=== PATIENT | female | born 1970 | race Two or more races ===

== ENCOUNTER 2016-03-07 20:39 | Emergency (ER) | payer MEDICARE, MEDICAID ==
[2016-03-07 20:52] VITALS: BP 149/91
[2016-03-07 22:06] LABS: Hematocrit 39 % (35-47); Hemoglobin 13.1 g/dl (12.0-16.0); Mean Corpuscular HGB Conc 34 g/dl (31-36); Mean Corpuscular Hemoglobin 28 pg (27-31); Mean Corpuscular Volume 84 fL (80-97); Mean Platelet Volume 9 um3 (7.4-10.4); Red Blood Count 4.65 10^6/ul (4.0-5.4); Red Cell Distribution Width 15 % (10.5-15); White Blood Count 2.9 10^3/ul (3.5-10.8)
--- NOTE | 2016-03-07 22:07 | RAD ---
INDICATION: Cough, fever. Blood-tinged sputum. COMPARISON: November 29, [address] and November 18, 2009 chest radiograph. TECHNIQUE: Dual energy PA and routine lateral views of the chest were obtained. REPORT: Mild airspace consolidation within the medial segment of the RIGHT middle lobe which may represent atelectasis or inflammatory infiltrate. Negative for volume loss to strongly favor atelectasis. Clear pleural spaces. Negative for pneumothorax. Upper normal heart size. Unremarkable central pulmonary vasculature. IMPRESSION: Mild consolidation in the distribution of the medial segment of the RIGHT middle lobe most concerning for inflammatory infiltrate.
[2016-03-07 22:10] LABS: Add Diff/Slide Review? Slide Review Added; Comments Flag Yes
[2016-03-07 22:21] LABS: Albumin 3.5 g/dL (3.2-5.2); Calcium 8.5 mg/dL (8.6-10.3); EGFR African American 111.9 (>60); Globulin 3.5 g/dL (2-4); Potassium 3.8 mmol/L (3.5-5.0); Total Bilirubin 0.4 mg/dL (0.2-1.0)
[2016-03-07] MEDS ORDERED: Azithromycin TAB* 250 MG PO ONE (22:27)
--- NOTE | 2016-03-07 22:28 | ED ---
Lowell Brandon Erika, scribed for Keyon Gutierrez MD on 03/07/16 at 2125 . Respiratory - HPI Summary HPI Summary: Patient is a 45-year-old female presenting to the ED with c/o cough, worsening over the past 3 days. Associated symptoms include fatigue, fever (T max 101), and blood tinged sputum this morning. Pt reports that she has been taking OTC Robitussin and ibuprofen and has not improved. Pt has not taken Tylenol. Hx HIV for the past 10 years - states last month viral load was 33804 copies. Pt reports her viral load has been fluctuating. She is followed by an IV clinic, and is seen every month. She reports she takes her medication daily. Pt denies recent opportunistic infections. Pt smokes 1/2 PPD. - History of Current Complaint Chief Complaint: EDUpperRespComplaint Stated Complaint: COUGH Time Seen by Provider: 03/07/16 21:13 Hx Obtained From: Patient Onset/Duration: Gradual Onset, Lasting Days - 3 days, Worse Since Timing: Constant Initial Severity: Mild Current Severity: Moderate Pain Intensity: 7 Character: Cough (Productive) Sputum Color: Red (Blood) Alleviating Factor(s): Nothing Associated Signs and Symptoms: Fever, URI - Allergy/Home Medications Allergies/Adverse Reactions: Allergies Allergy/AdvReac Type Severity Reaction Status Date / Time Bupropion [From Wellbutrin] Allergy Hives Verified 09/09/15 19:50 PMH/Surg Hx/FS Hx/Imm Hx Endocrine/Hematology History: Denies: Hx Diabetes, Hx Thyroid Disease Cardiovascular History: Denies: Hx Hypertension, Hx Pacemaker/ICD Respiratory History: Reports: Hx Asthma, Hx Chronic Obstructive Pulmonary Disease (COPD) GI History: Denies: Hx Ulcer History: Denies: Hx Dialysis, Hx Kidney Stones, Hx Renal Disease Sensory History: Denies: Hx Hearing Aid Psychiatric History: Reports: Hx Bipolar Disorder Denies: Hx Panic Disorder - Surgical History Surgery Procedure, Year, and Place: C SPINE SURGERY, HYSTERECTOMY, C SECTION, RT KNEE SCOPE X2, C5-C6 FUSSION WITH FLEX PLATE-right knee ACL repair 2003 Infectious Disease History: Yes Infectious Disease History: Reports: Hx Human Immunodeficiency Virus (HIV) Denies: Hx Hepatitis, Traveled Outside the [place] in Last 30 Days - Family History Known Family History: Positive: Hypertension, Diabetes - Social History Alcohol Use: Rare Hx Substance Use: No Substance Use Type: Reports: None Hx Tobacco Use: Yes Smoking Status (MU): Heavy Every Day Tobacco Smoker Amount Used/How Often: 1/2 ppd Review of Systems Positive: Fever, Fatigue Positive: Cough - with blood-tinged sputum All Other Systems Reviewed And Are Negative: Yes Physical Exam Triage Information Reviewed: Yes Vital Signs On Initial Exam: Initial Vitals Temp Pulse Resp BP Pulse Ox 99.9 F 108 18 149/91 100 03/07/16 20:49 03/07/16 20:49 03/07/16 20:49 03/07/16 20:49 03/07/16 20:49 Vital Signs Reviewed: Yes Appearance: Positive: Well-Appearing, No Pain Distress Skin: Positive: Warm Head/Face: Positive: Normal Head/Face Inspection Eyes: Positive: DELORIS ENT: Positive: Hearing grossly normal Neck: Positive: Supple Respiratory/Lung Sounds: Positive: Clear to Auscultation, Breath Sounds Present Cardiovascular: Positive: RRR Abdomen Description: Positive: Nontender, Soft Bowel Sounds: Positive: Present Musculoskeletal: Positive: Strength/ROM Intact Neurological: Positive: Sensory/Motor Intact Psychiatric: Positive: Normal Diagnostics - Vital Signs Vital Signs Temp Pulse Resp BP Pulse Ox 03/07/16 20:49 99.9 F 108 18 149/91 100 - Laboratory Lab Results: Lab Results 03/07/16 03/07/16 Range/Units 22:00 22:00 WBC 2.9 L (3.5-10.8) 10^3/ul RBC 4.65 (4.0-5.4) 10^6/ul Hgb 13.1 (12.0-16.0) g/dl Hct 39 (35-47) % MCV 84 (80-97) fL MCH 28 (27-31) pg MCHC 34 (31-36) g/dl RDW 15 (10.5-15) % Plt Count 92 L (150-450) 10^3/ul MPV 9 (7.4-10.4) um3 Neut % (Auto) 69.1 (38-83) % Lymph % (Auto) 14.3 L (25-47) % [place] % (Auto) 8.8 (1-9) % Eos % (Auto) 6.7 H (0-6) % Baso % (Auto) 1.1 (0-2) % Absolute Neuts (auto) 2.0 (1.5-7.7) 10^3/ul Absolute Lymphs (auto) 0.4 L (1.0-4.8) 10^3/ul Absolute Monos (auto) 0.3 (0-0.8) 10^3/ul Absolute Eos (auto) 0.2 (0-0.6) 10^3/ul Absolute Basos (auto) 0 (0-0.2) 10^3/ul Absolute Nucleated RBC 0.01 10^3/ul Nucleated RBC % 0.2 Sodium 134 (133-145) mmol/L Potassium 3.8 (3.5-5.0) mmol/L Chloride 105 (101-111) mmol/L Carbon Dioxide 25 (22-32) mmol/L Anion Gap 4 (2-11) mmol/L BUN 8 (6-24) mg/dL Creatinine 0.73 (0.51-0.95) mg/dL Est GFR ( Amer) 111.9 (>60) Est GFR (Non-Af Amer) 87.0 (>60) BUN/Creatinine Ratio 11.0 (8-20) Glucose 90 (70-100) mg/dL Calcium 8.5 L (8.6-10.3) mg/dL Total Bilirubin 0.40 (0.2-1.0) mg/dL AST 39 (13-39) U/L ALT 27 (7-52) U/L Alkaline Phosphatase 75 (34-104) U/L Total Protein 7.0 (6.4-8.9) g/dL Albumin 3.5 (3.2-5.2) g/dL Globulin 3.5 (2-4) g/dL Albumin/Globulin Ratio 1.0 (1-3) Result Diagrams: 03/07/16 22:00 03/07/16 22:00 Lab Statement: Any lab studies that have been ordered have been reviewed, and results considered in the medical decision making process. - Radiology CXR Radiology Interpretation Completed By: Radiologist - IMPRESSION: Mild consolidation in the distribution of the medial segment of the RIGHT middle lobe most concerning for inflammatory infiltrate. Re-Evaluation - Re-Evaluation First Eval Re-Evaluation Time: 22:28 Change: Improved Disposition - Course Assessment/Plan: A 45 y/o F presents to the ED with a CC of a cough. Pt will be treated with azithromycin for bronchitis and will be discharged with follow up from her PCP - Diagnoses Provider Diagnoses: Bronchitis Discharge - Discharge Plan Condition: Stable Disposition: HOME Prescriptions: Azithromycin TAB* [Zithromax TAB (Z-NASIR)*] 250 mg PO DAILY #4 tab Patient Education Materials: Acute Bronchitis (ED) Referrals: Clementine OCHOA,Marian Townsend [Primary Care Provider] - Additional Instructions: Please follow up with your PCP The documentation as recorded by the Lowell wells Erika accurately reflects the service I personally performed and the decisions made by , Keyon Gutierrez MD.
== END 2016-03-07 23:04 | disposition home or self-care (01) ==
LOC: ED 20:39
DX: J40 Bronchitis, not specified as acute or chronic (principal); R05 Cough; R53.83 Other fatigue; F17.210 Nicotine dependence, cigarettes, uncomplicated; R50.9 Fever, unspecified
CPT/HCPCS: 36415; 71020; 80053; 85025; 99282; A9270-GY

== ENCOUNTER 2016-04-20 08:10 | Emergency (ER) | payer MEDICARE, MEDICAID ==
[2016-04-20] MEDS ORDERED: Ibuprofen TAB* 400 MG PO ONE (08:37)
--- NOTE | 2016-04-20 08:44 | ED ---
Lower Extremity - HPI Summary HPI Summary: Patient was walking in [employer] two days ago when she twisted her knee. She has a history of patellar subluxation and worries this happened again. She is using a cane for ambulation and has pain with weightbearing. She feels the knee is swollen and tender to the touch. She takes chronic pain medications, so she has used hydrocodone with minimal relief. She also used an Jesus Manuel bandage for support. No calf pain or swelling. - History of Current Complaint Chief Complaint: EDExtremityLower Stated Complaint: LT KNEE PAIN Time Seen by Provider: 04/20/16 08:22 Hx Obtained From: Patient Mechanism Of Injury: Twisted Onset of Pain: Immediate Onset/Duration: Days - 2 Severity Initially: Moderate Severity Currently: Severe Pain Intensity: 9 Timing: Constant Location: Is Discrete @ - left knee Character Of Pain: Sharp, Aching Associated Signs And Symptoms: Positive: Swelling, Knee Pain Aggravating Factor(s): Standing, Movement Alleviating Factor(s): Rest Able to Bear Weight: Yes - with pain - Allergies/Home Medications Allergies/Adverse Reactions: Allergies Allergy/AdvReac Type Severity Reaction Status Date / Time Bupropion [From Wellbutrin] Allergy Hives Verified 04/20/16 08:28 Home Medications: Home Medications Triumeq 600-50-300 mg 1 tab PO BEDTIME 04/20/16 [History Confirmed 04/20/16] PMH/Surg Hx/FS Hx/Imm Hx Endocrine/Hematology History: Denies: Hx Diabetes, Hx Thyroid Disease Cardiovascular History: Denies: Hx Hypertension, Hx Pacemaker/ICD Respiratory History: Reports: Hx Asthma, Hx Chronic Obstructive Pulmonary Disease (COPD) GI History: Denies: Hx Ulcer History: Denies: Hx Dialysis, Hx Kidney Stones, Hx Renal Disease Sensory History: Denies: Hx Hearing Aid Psychiatric History: Reports: Hx Bipolar Disorder Denies: Hx Panic Disorder - Surgical History Surgery Procedure, Year, and Place: C SPINE SURGERY, HYSTERECTOMY, C SECTION, RT KNEE SCOPE X2, C5-C6 FUSSION WITH FLEX PLATE-right knee ACL repair 2003 Infectious Disease History: No Infectious Disease History: Reports: Hx Human Immunodeficiency Virus (HIV) Denies: Hx Hepatitis, Traveled Outside the [place] in Last 30 Days - Family History Known Family History: Positive: Hypertension, Diabetes - Social History Occupation: Unemployed Lives: With Family Alcohol Use: Rare Hx Substance Use: No Substance Use Type: Reports: Prescribed Substance Use Comment - Amount & Last Used: Hydrocodone Hx Tobacco Use: Yes Smoking Status (MU): Light Every Day Tobacco Smoker Amount Used/How Often: 1/2 ppd Cessation Counseling: Patient Advised to Stop Review of Systems Positive: Myalgia, Decreased ROM, Edema - mild posterior Negative: Bruising Negative: Weakness, Paresthesia All Other Systems Reviewed And Are Negative: Yes Physical Exam Triage Information Reviewed: Yes Vital Signs On Initial Exam: Initial Vitals Temp Pulse Resp BP Pulse Ox 99.0 F 102 16 146/91 100 04/20/16 08:13 04/20/16 08:13 04/20/16 08:13 04/20/16 08:13 04/20/16 08:13 Vital Signs Reviewed: Yes Appearance: Positive: Well-Appearing, Well-Nourished, Pain Distress Skin: Positive: Warm, Skin Color Reflects Adequate Perfusion, Dry, Soft Head/Face: Positive: Normal Head/Face Inspection Eyes: Positive: EOMI, DELORIS, Conjunctiva Clear ENT: Positive: Hearing grossly normal Respiratory/Lung Sounds: Positive: Breath Sounds Present Cardiovascular: Positive: RRR Musculoskeletal: Positive: Limited @ - extension to 0, flexion to 90; stable to varus/valgus stress, Pain @ - positive patellar apprehension with tenderness over the tibial tendon and lateral joint line, Edema Left - mild in the popliteal fossa Neurological: Positive: Sensory/Motor Intact, Alert, Oriented to Person Place, Time, NV Bundle Intact Distally, Abnormal Gait Psychiatric: Positive: Affect/Mood Appropriate AVPU Assessment: Alert Diagnostics - Vital Signs Vital Signs Temp Pulse Resp BP Pulse Ox 04/20/16 08:24 92 97 04/20/16 08:13 99.0 F 102 16 146/91 100 - Laboratory Lab Statement: Any lab studies that have been ordered have been reviewed, and results considered in the medical decision making process. - Radiology No standard instances Xray Interpretation: No Acute Changes Radiology Interpretation Completed By: Radiologist Lower Extremity Course/Dx - Diagnoses Differential Diagnosis/HQI/PQRI: Positive: Arthritis, Bursitis, Cellulitis, Compartment Syndrome, Contusion, Dislocation, Fracture (Closed), Osteomyelitis, Sprain, Strain Provider Diagnoses: Left knee sprain Discharge - Discharge Plan Condition: Stable Disposition: HOME Patient Education Materials: Knee Pain (ED) Referrals: Marian Burns B [Primary Care Provider] - Additional Instructions: Please use 800mg of ibuprofen three times daily with meals for the next 5-7 days. Use the crutches to take weight off your leg until your pain improves. Ice and elevate your knee several times daily to decrease swelling. Follow-up with your primary care provider if your symptoms don't improve in the next 7-10 days. Return to the emergency department if your symptoms worsen.
--- NOTE | 2016-04-20 09:20 | RAD ---
INDICATION: Left knee injury. TECHNIQUE: 4 views of the left knee were obtained. FINDINGS: The bones are in normal alignment. No joint effusion or acute fracture is seen. There is a small bony spur or old fracture present along the medial facet of the patella. Joint spaces appear maintained. IMPRESSION: NO EVIDENCE FOR ACUTE FRACTURE.
[2016-04-20 10:15] VITALS: BP 128/82
== END 2016-04-20 10:14 | disposition home or self-care (01) ==
LOC: ED 08:10
DX: S83.92XA Sprain of unspecified site of left knee, initial encounter (principal); M25.462 Effusion, left knee; M25.562 Pain in left knee; X50.0XXA Overexertion from strenuous movement or load, initial encounter; X50.9XXA Other and unspecified overexertion or strenuous movements or postures, initial encounter; Y93.9 Activity, unspecified; Y92.89 Other specified places as the place of occurrence of the external cause; F17.210 Nicotine dependence, cigarettes, uncomplicated
CPT/HCPCS: 99282; A9270-GY

== ENCOUNTER 2016-09-18 13:42 | Emergency (ER) | payer MEDICARE, MEDICAID ==
[2016-09-18] MEDS ORDERED: Ketorolac INJ* 30 MG/ML 1 ML VIAL IV ONE (15:37)
[2016-09-18] MEDS ORDERED: NS 0.9% 1000 ML* 1,000 ML IV ONE (15:37)
[2016-09-18] MEDS ORDERED: Metoclopramide IV* 5 MG/ML 2 ML VIAL IV ONE (15:37)
[2016-09-18] MEDS ORDERED: diPHENhydraMINE IV* 50 MG/ML 1 ml VIAL (BENADRYL) IV ONE (15:37)
[2016-09-18 17:45] VITALS: BP 133/89
--- NOTE | 2016-09-18 22:25 | ED ---
Ken Brandon Alok, scribed for Mikie Barry MD on 09/18/16 at 1543 . Dizziness - HPI Summary HPI Summary: 46F presents to the ED with dizziness described as a lightheadedness for the past 3 days. Patient states that her dizziness has been constant and is aggravated by an upright position. Pt also notes a left sided temporal ANDUJAR described as a dull, stabbing pain as well as nausea for the past 3 days. Pt notes photophobia and has been taking ibuprofen to manage her ANDUJAR. PMHx includes C4C5 fusion plate. - History Of Current Complaint Chief Complaint: EDDizziness Stated Complaint: LIGHTHEADED,DIZZY,NAUSEA Time Seen by Provider: 09/18/16 15:32 Hx Obtained From: Patient Onset/Duration: Still Present Timing: Constant Severity Initially: Moderate Severity Currently: Moderate Character: Lightheaded, Dizzy Aggravating Factor(s): Headache, Change In Head Position Alleviating Factor(s): Other - ibuprofen Associated Signs And Symptoms: Positive: Nausea, Other: - ANDUJAR - Allergies/Home Medications Allergies/Adverse Reactions: Allergies Allergy/AdvReac Type Severity Reaction Status Date / Time Bupropion [From Wellbutrin] Allergy Hives Verified 09/18/16 13:47 PMH/Surg Hx/FS Hx/Imm Hx Endocrine/Hematology History: Denies: Hx Anticoagulant Therapy, Hx Blood Disorders, Hx Diabetes, Hx Thyroid Disease Cardiovascular History: Denies: Hx Hypertension, Hx Pacemaker/ICD Respiratory History: Reports: Hx Asthma, Hx Chronic Obstructive Pulmonary Disease (COPD) GI History: Denies: Hx Ulcer History: Denies: Hx Dialysis, Hx Kidney Stones, Hx Renal Disease Musculoskeletal History: Reports: Hx Back Problems - DDD lumbar spine Denies: Hx Osteoporosis Sensory History: Denies: Hx Hearing Aid Psychiatric History: Reports: Hx Bipolar Disorder Denies: Hx Panic Disorder - Surgical History Surgery Procedure, Year, and Place: C SPINE SURGERY, TUBAL LIGATION; HYSTERECTOMY, C SECTION, RT KNEE SCOPE X2, C5-C6 FUSSION WITH FLEX PLATE-; right knee ACL repair 2003. BILATERAL WRIST CARPAL TUNNEL Infectious Disease History: No Infectious Disease History: Reports: Hx Human Immunodeficiency Virus (HIV) Denies: Hx Hepatitis, Traveled Outside the [place] in Last 30 Days - Family History Known Family History: Positive: Hypertension, Diabetes - Social History Occupation: Disabled Lives: With Family Alcohol Use: Rare Hx Substance Use: No Substance Use Type: Reports: Prescribed. Denies: Heroin Substance Use Comment - Amount & Last Used: Hydrocodone Hx Tobacco Use: Yes Smoking Status (MU): Current Every Day Smoker Amount Used/How Often: 1/2 ppd Review of Systems Negative: Fever Positive: Photophobia Positive: Nausea Neurological: Other - Dizziness Positive: Headache All Other Systems Reviewed And Are Negative: Yes Physical Exam Triage Information Reviewed: Yes Vital Signs On Initial Exam: Initial Vitals Temp Pulse Resp BP Pulse Ox 98.1 F 100 16 146/87 98 09/18/16 13:50 09/18/16 13:50 09/18/16 13:50 09/18/16 13:50 09/18/16 13:50 Vital Signs Reviewed: Yes Appearance: Positive: Well-Appearing, No Pain Distress Skin: Positive: Warm, Skin Color Reflects Adequate Perfusion, Dry Head/Face: Positive: Normal Head/Face Inspection Eyes: Positive: Normal ENT: Positive: Normal ENT inspection Neck: Positive: Supple, Nontender Respiratory/Lung Sounds: Positive: Clear to Auscultation, Breath Sounds Present Cardiovascular: Positive: RRR Abdomen Description: Positive: Nontender, Soft Bowel Sounds: Positive: Present Musculoskeletal: Positive: Other - Paracervical tenderness left side more than right. Neurological: Positive: Normal, Sensory/Motor Intact, Alert, Oriented to Person Place, Time, CN Intact II-III, Other - No meningitis signs Psychiatric: Positive: Normal, Affect/Mood Appropriate Diagnostics - Vital Signs Vital Signs Temp Pulse Resp BP Pulse Ox 09/18/16 13:50 98.1 F 100 16 146/87 98 - Laboratory Lab Statement: Any lab studies that have been ordered have been reviewed, and results considered in the medical decision making process. - EKG 1359 Cardiac Rate: NL - 81 bpm EKG Rhythm: Sinus Rhythm Dizzy Course/Dx - Course Course Of Treatment: Ms. Edwards presented with a ANDUJAR for 3 days that was unilateral, stabbing and accompanied by nause and photophobia. She improved almost completely with a migraine cocktail and went home. - Diagnoses Provider Diagnoses: Migraine Discharge - Discharge Plan Condition: Stable Disposition: HOME Patient Education Materials: Migraine Headache (ED) Referrals: Adebayo Arndt MD [Primary Care Provider] - The documentation as recorded by the Ken wells Alok accurately reflects the service I personally performed and the decisions made by me, Mikie Barry MD.
== END 2016-09-18 18:09 | disposition home or self-care (01) ==
LOC: ED 13:42
DX: G43.909 Migraine, unspecified, not intractable, without status migrainosus (principal); R42 Dizziness and giddiness; R11.0 Nausea; F17.210 Nicotine dependence, cigarettes, uncomplicated
CPT/HCPCS: 93005; 99283; J1200; J1885

== ENCOUNTER 2016-11-23 10:22 | Emergency (ER) | payer MEDICARE, MEDICAID ==
[2016-11-23] MEDS ORDERED: LORazepam TAB(*) 1 MG PO ONE (11:14)
[2016-11-23] MEDS ORDERED: Ketorolac INJ* 60 MG/2 ML VIAL IM ONE (11:14)
[2016-11-23 12:09] VITALS: BP 138/88
--- NOTE | 2016-11-23 12:13 | ED ---
Jones Brandon Alfonso scribed for Josie Hamilton MD on 11/23/16 at 1047 . Back Pain - HPI Summary HPI Summary: This patient is a 46 year old F presenting to [facility] accompanied by family with a chief complaint of acute on chronic low back pain since last night. She has had back pain for 8 years. The patient rates the pain 10/10 in severity. Symptoms aggravated by a fall last night. Symptoms alleviated by nothing. Patient reports bilateral LE numbness. She reports close follow up of her case by a neurosurgeon who knows she is at the ED today. She reports Toradol has alleviated her back pain in the past. [place] family is her PCP. Tobacco abuse disorder. PMHx includes chronic low back pain. - History of Current Complaint Chief Complaint: EDBackInjuryPain Stated Complaint: BACK PAIN Time Seen by Provider: 11/23/16 10:39 Hx Obtained From: Patient Onset/Duration: Sudden Onset, Lasting Days - last night, Still Present Onset/Duration: Still Present Timing: Constant Back Pain Location: Is Discrete @ - low back and bilateral LE Severity Initially: Severe Severity Currently: Severe Pain Intensity: 10 Pain Scale Used: 0-10 Numeric Alleviating Symptom(s): Nothing Associated Signs And Symptoms: Positive: Other - bilateral LE numbness - Allergies/Home Medications Allergies/Adverse Reactions: Allergies Allergy/AdvReac Type Severity Reaction Status Date / Time Bupropion [From Wellbutrin] Allergy Hives Verified 09/18/16 13:47 PMH/Surg Hx/FS Hx/Imm Hx Endocrine/Hematology History: Denies: Hx Anticoagulant Therapy, Hx Blood Disorders, Hx Diabetes, Hx Thyroid Disease Cardiovascular History: Denies: Hx Hypertension, Hx Pacemaker/ICD Respiratory History: Reports: Hx Asthma, Hx Chronic Obstructive Pulmonary Disease (COPD) GI History: Denies: Hx Ulcer History: Denies: Hx Dialysis, Hx Kidney Stones, Hx Renal Disease Musculoskeletal History: Reports: Hx Back Problems - DDD lumbar spine Denies: Hx Osteoporosis Sensory History: Denies: Hx Hearing Aid Psychiatric History: Reports: Hx Bipolar Disorder Denies: Hx Panic Disorder - Surgical History Surgery Procedure, Year, and Place: C SPINE SURGERY, TUBAL LIGATION; HYSTERECTOMY, C SECTION, RT KNEE SCOPE X2, C5-C6 FUSSION WITH FLEX PLATE-; right knee ACL repair 2003. BILATERAL WRIST CARPAL TUNNEL Infectious Disease History: Yes Infectious Disease History: Reports: Hx Human Immunodeficiency Virus (HIV) Denies: Hx Hepatitis, Traveled Outside the [place] in Last 30 Days - Family History Known Family History: Positive: Cardiac Disease, Hypertension, Diabetes - Social History Alcohol Use: Rare Hx Substance Use: No Substance Use Type: Reports: Prescribed. Denies: Heroin Substance Use Comment - Amount & Last Used: Hydrocodone Hx Tobacco Use: Yes Smoking Status (MU): Current Every Day Smoker Amount Used/How Often: 1/2 ppd Review of Systems Positive: Other - low back pain Neurological: Other - bilateral LE numbness All Other Systems Reviewed And Are Negative: Yes Physical Exam Triage Information Reviewed: Yes Vital Signs On Initial Exam: Initial Vitals Temp Pulse Resp BP Pulse Ox 99.1 F 100 20 147/93 100 11/23/16 10:24 11/23/16 10:24 11/23/16 10:24 11/23/16 10:24 11/23/16 10:24 Vital Signs Reviewed: Yes Appearance: Positive: Well-Appearing, No Pain Distress Skin: Positive: Warm, Skin Color Reflects Adequate Perfusion, Dry Eyes: Positive: EOMI, DELORIS ENT: Positive: Pharynx normal, TMs normal Neck: Positive: Supple, Nontender Respiratory/Lung Sounds: Positive: Clear to Auscultation, Breath Sounds Present. Negative: Rales, Rhonchi, Wheezes Cardiovascular: Positive: RRR, Other - No gallop. Negative: Murmur, Rub Abdomen Description: Positive: Nontender, Soft, Other: - No rebound. Negative: Distended, Guarding Bowel Sounds: Positive: Present Musculoskeletal: Positive: Other - Diffuse L1-L5 tenderness. Normal hip flexor strength. DTR normal. Slight decreased sensations in RLE. Normal great toe strength.. Negative: Edema Left, Edema Right Neurological: Positive: Sensory/Motor Intact, Alert, Oriented to Person Place, Time, CN Intact II-III - 2-12 Psychiatric: Positive: Affect/Mood Appropriate Diagnostics - Vital Signs Vital Signs Temp Pulse Resp BP Pulse Ox 11/23/16 10:24 99.1 F 100 20 147/93 100 - Laboratory Lab Statement: Any lab studies that have been ordered have been reviewed, and results considered in the medical decision making process. Back Pain Course/Dx - Course Course Of Treatment: 46 yo female with acute on chronic back pain diffusely tender to palpation over lumbar spine , no fever neurologically intact except for mild sensory changes on one side which she describes as chronic. Pt better with ativan and toradol and istop verified. medrol dose pack, naprosyn and short course of ativan as a muscle relaxer ordered. - Diagnoses Provider Diagnoses: Back pain Discharge - Discharge Plan Condition: Stable Disposition: HOME Prescriptions: LORazepam TAB(*) [Ativan 1 MG TAB (*)] 1 mg PO Q8H PRN #10 tab MDD 3 PRN Reason: Spasms Methylprednisolone [Medrol Dosepak 4 MG*] 4 mg PO .SEE NASIR INSTRUCTION #1 packet Naproxen [Naprosyn 500 mg] 500 mg PO BID PRN #20 tab PRN Reason: Pain Patient Education Materials: Chronic Back Pain (ED), Acute Low Back Pain (ED) Referrals: Adebayo Arndt MD [Primary Care Provider] - 3 Days Additional Instructions: RETURN TO THE EMERGENCY DEPARTMENT FOR CHANGING OR WORSENING SYMPTOMS. The documentation as recorded by the Jones wells Alfonso accurately reflects the service I personally performed and the decisions made by me, Josie Hamilton MD.
== END 2016-11-23 12:08 | disposition home or self-care (01) ==
LOC: ED 10:22
DX: M54.5 Low back pain (principal); F17.210 Nicotine dependence, cigarettes, uncomplicated
CPT/HCPCS: 96372; 99282; A9270-GY; J1885

== ENCOUNTER 2016-12-20 16:20 | Emergency (ER) | payer MEDICARE, MEDICAID ==
[2016-12-20 16:28] VITALS: BP 148/93
--- NOTE | 2016-12-20 17:33 | UC ---
Skin Complaint HPI - HPI Summary HPI Summary: WALKING BAREFOOT FOUR DAYS AGO, HAD BUG BITE TO RIGHT GREAT TOE. SINCE THT TIME WOUND HAS BECOME RED SWOLLEN WITH SOME CLEAR DISCHARGE. NO HISTORY OF MRSA. NO HISTORY OF GOUT. NO FEVERS. NO SOB. NO CHEST PAIN. +HIV - History of Current Complaint Chief Complaint: UCSkin Time Seen by Provider: 12/20/16 16:32 Stated Complaint: BUG BITE Hx Obtained From: Patient, Family/Cleaner And Polisher Onset/Duration: Gradual Onset, Lasting Days, Still Present Skin Exposure Onset/Duration: Days Ago Onset Severity: Mild Current Severity: Mild Pain Intensity: 1 Pain Scale Used: Adult Non Verbal Location: Discrete - RIGHT GREAT TOE Character: Redness, Raised Aggravating Factor(s): Touch Alleviating Factor(s): Nothing Associated Signs & Symptoms: Positive: Drainage, Tenderness, Red Streaks. Negative: Nausea, Vomiting, Fever, Chills, Cough, Wheezing, Chest Pain, Hoarseness, Throat Tightening, Rash, Bruising, Joint Swelling Related History: Insect Bite/Sting, Possible Reaction to: Insect - Allergy/Home Medications Allergies/Adverse Reactions: Allergies Allergy/AdvReac Type Severity Reaction Status Date / Time Bupropion [From Wellbutrin] Allergy Hives Verified 12/20/16 16:29 Review of Systems Constitutional: Negative Skin: Rash - RIGHT GREAT TOE Eyes: Negative ENT: Negative Respiratory: Negative Cardiovascular: Negative Gastrointestinal: Negative Genitourinary: Negative Motor: Negative Neurovascular: Negative Musculoskeletal: Negative Neurological: Negative Psychological: Negative Is Patient Immunocompromised?: Yes - +HIV All Other Systems Reviewed And Are Negative: Yes PMH/Surg Hx/FS Hx/Imm Hx Previously Healthy: Yes Other History Of: HIV Negative For: Anticoagulant Therapy - Surgical History Surgical History: Yes Surgery Procedure, Year, and Place: C SPINE SURGERY, TUBAL LIGATION; HYSTERECTOMY, C SECTION, RT KNEE SCOPE X2, C5-C6 FUSSION WITH FLEX PLATE-; right knee ACL repair 2003. BILATERAL WRIST CARPAL TUNNEL - Family History Known Family History: Positive: Cardiac Disease, Hypertension, Diabetes - Social History Occupation: Works From/At Home Lives: With Family Alcohol Use: Rare Substance Use Type: None, Prescribed Substance Use Comment - Amount & Last Used: Hydrocodone Smoking Status (MU): Current Every Day Smoker Amount Used/How Often: 1/2 ppd Household Exposure Type: Cigarettes Cessation Counseling: Patient Advised to Stop Physical Exam Triage Information Reviewed: Yes Appearance: Well-Appearing, No Pain Distress, Well-Nourished Vital Signs: Initial Vital Signs Temp 98.6 F 12/20/16 16:24 Pulse 100 12/20/16 16:24 Resp 18 12/20/16 16:24 BP 148/93 12/20/16 16:24 Pulse Ox 100 12/20/16 16:24 Vital Signs Reviewed: Yes Eye Exam: Normal ENT Exam: Normal ENT: Positive: Normal ENT inspection, Hearing grossly normal, TMs normal Dental Exam: Normal Neck exam: Normal Neck: Positive: Supple, Nontender, No Lymphadenopathy Respiratory Exam: Normal Respiratory: Positive: Chest non-tender, Lungs clear, Normal breath sounds, No respiratory distress, No accessory muscle use Cardiovascular Exam: Normal Cardiovascular: Positive: RRR, No Murmur, Pulses Normal Abdominal Exam: Normal Abdomen Description: Positive: Nontender, No Organomegaly Musculoskeletal Exam: Normal Musculoskeletal: Positive: Strength Intact, ROM Intact Neurological Exam: Normal Psychological Exam: Normal Skin: Positive: Other - 1CM X 1CM ERRYTHMEATOUS DRY ULCERATED LESION RIGHT GREAT TOE. PATIENT WAS ABLE TO EXPRESS CLEAR DISCHARGE FROM SITE Course/Dx - Differential Diagnoses - Skin Complaint Differential Diagnoses: Abscess, Cellulitis, Impetigo, MRSA, Systemic Illness, Tick Born Illness, Tinea, Other - GOUT; SARCOMA - Diagnoses Provider Diagnoses: RIGHT GREAT TOE INSECT BITE; CELLULITIS Discharge - Discharge Plan Condition: Stable Disposition: HOME Prescriptions: DOXYcycline CAP(*) [DOXYcycline 100MG CAP(*)] 100 mg PO BID #20 cap Patient Education Materials: Cellulitis (ED), Insect Bite or Sting (ED) Referrals: [facility] [place] PHYSICIAN REFERRAL [Outside] Adebayo Arndt MD [Primary Care Provider] -
--- NOTE | 2016-12-20 22:06 | ED ---
Progress - Progress Note Progress Note: no change. Course/Dx - Diagnoses Provider Diagnoses: Abscess
--- NOTE | 2016-12-21 15:30 | ED ---
Progress - Progress Note Progress Note: no change. 12/21/16 NO CHNAGE Course/Dx - Diagnoses Provider Diagnoses: Abscess
--- NOTE | 2016-12-21 15:52 | UC ---
Progress - Progress Note Progress Note: no change. 12/21/16 NO CHNAGE 12/21/16 PRELIM SHOWED STREP GROUP A SO CHANGED ABX TO AMOXIL. D/C DOXY.
== END 2016-12-20 17:00 | disposition home or self-care (01) ==
LOC: UCEAST 16:20
DX: S90.461A Insect bite (nonvenomous), right great toe, initial encounter (principal); F17.210 Nicotine dependence, cigarettes, uncomplicated; Z21 Asymptomatic human immunodeficiency virus [HIV] infection status; L03.90 Cellulitis, unspecified; B95.61 Methicillin susceptible Staphylococcus aureus infection as the cause of diseases classified elsewhere; W57.XXXA Bitten or stung by nonvenomous insect and other nonvenomous arthropods, initial encounter; Y92.9 Unspecified place or not applicable
CPT/HCPCS: 87070; 87077; 87186; 87205; 87640; 87641; 99212; G0463

== ENCOUNTER 2017-01-04 07:37 | Emergency (ER) | payer MEDICARE, MEDICAID ==
[2017-01-04] MEDS ORDERED: Ondansetron INJ* 2 MG/ML VIAL IV ONE (11:04)
[2017-01-04] MEDS ORDERED: NS 0.9% 1000 ML* 1,000 ML IV ONE (11:04)
[2017-01-04] MEDS ORDERED: HYDROmorphone INJ* 1 MG/ML CARPUJECT SYRINGE IV ONE ×2 (11:04→16:00)
[2017-01-04 11:43] LABS: Hematocrit 44 % (35-47); Hemoglobin 14.8 g/dl (12.0-16.0); Mean Corpuscular HGB Conc 34 g/dl (31-36); Mean Corpuscular Hemoglobin 30 pg (27-31); Mean Corpuscular Volume 90 fL (80-97); Mean Platelet Volume 8 um3 (7.4-10.4); Red Blood Count 4.93 10^6/ul (4.0-5.4); Red Cell Distribution Width 16 % (10.5-15); White Blood Count 7.5 10^3/ul (3.5-10.8)
[2017-01-04 11:56] LABS: Albumin 3.8 g/dL (3.2-5.2); BUN/Creatinine Ratio 17.9 (8-20); C Reactive Protein 3.07 mg/L (< 5.00); Calcium 9.6 mg/dL (8.6-10.3); EGFR African American 103.2 (>60); EGFR Non-African American 80.2 (>60); Globulin 3.4 g/dL (2-4); Potassium 4.1 mmol/L (3.5-5.0); Total Bilirubin 0.4 mg/dL (0.2-1.0); Total Protein 7.2 g/dL (6.4-8.9)
[2017-01-04] MEDS ORDERED: Iohexol 300* (CONTRAST) 10 ML SDV IV ONE (12:36)
--- NOTE | 2017-01-04 14:29 | RAD ---
CLINICAL HISTORY: Right lower quadrant pain status post appendectomy COMPARISON: November 29, 2015 TECHNIQUE: Multiple contiguous axial CT scans were obtained of the abdomen and pelvis after the administration of intravenous contrast. Coronal and sagittal multiplanar reformations are submitted for review. Oral contrast was administered. Delayed images were obtained through the abdomen and pelvis. FINDINGS: LUNG BASES: The lung bases are clear. LIVER: The liver is diffusely low in attenuation compared to the spleen. There are no focal hepatic parenchymal masses. Liver measures 19 cm in long axis. BILE DUCTS: There is no intrahepatic or extrahepatic biliary dilatation. GALLBLADDER: The gallbladder is normal, without pericholecystic inflammatory change. PANCREAS: The pancreas is normal, without mass or ductal dilatation. SPLEEN: Normal in size and appearance. UPPER GI TRACT: Evaluation of the gastrointestinal tract is limited by incomplete gastric distention. The upper GI tract is unremarkable. SMALL BOWEL AND MESENTERY: The small bowel is normal in contour, course, and caliber. There is no obstruction or dilatation. COLON: There are multiple diverticula of the sigmoid colon. There is no pericolonic inflammatory change. ADRENALS: Normal bilaterally. KIDNEYS: The kidneys are normal in shape, size, contour, and axis. There is no hydronephrosis or nephrolithiasis. BLADDER: The bladder is smooth in contour. PELVIC ORGANS: The pelvic organs are not visualized. AORTA: There is calcific atherosclerotic disease of the abdominal aorta and its branches, without aneurysmal dilatation IVC: Unremarkable LYMPH NODES: There is no lymphadenopathy by size criteria. ABDOMINAL WALL: There is no evidence for abdominal wall hernia. BONES AND SOFT TISSUES: Unremarkable OTHER: None IMPRESSION: 1. DIVERTICULOSIS. 2. FATTY INFILTRATION OF THE LIVER WITH MILD HEPATOMEGALY.
[2017-01-04 15:13] VITALS: BP 129/82
[2017-01-04 15:14] LABS: Urine Bacteria Absent (Absent); Urine Bilirubin Negative (Negative); Urine Glucose Negative (Negative); Urine Nitrite Negative (Negative)
[2017-01-04] MEDS ORDERED: Nitrofurantoin Macrocrystals* 100 MG CAP PO ONE (16:00)
--- NOTE | 2017-01-04 16:07 | ED ---
Jones Brandon Alfonso, scribed for Josie Hamilton MD on 01/04/17 at 1052 . Complex/Multi-Sys Presentation - HPI Summary HPI Summary: This patient is a 46 year old F presenting to [facility] with a chief complaint of sudden onset right sided pelvic pain since two days ago. The pain does not radiate to her back. The patient rates the pain 8/10 in severity. Symptoms alleviated by nothing. Patient denies dysuria, and recent trauma. - History Of Current Complaint Chief Complaint: EDExtremityLower Hx Obtained From: Patient Onset/Duration: Sudden Onset, Lasting Days - 2, Still Present Timing: Constant Severity Currently: Severe Alleviating Factor(s): nothing Associated Signs And Symptoms: Positive: Other - Patient denies dysuria, and recent trauma. - Allergies/Home Medications Allergies/Adverse Reactions: Allergies Allergy/AdvReac Type Severity Reaction Status Date / Time Bupropion [From Wellbutrin] Allergy Hives Verified 12/20/16 16:29 PMH/Surg Hx/FS Hx/Imm Hx Endocrine/Hematology History: Denies: Hx Anticoagulant Therapy, Hx Blood Disorders, Hx Diabetes, Hx Thyroid Disease Cardiovascular History: Denies: Hx Hypertension, Hx Pacemaker/ICD Respiratory History: Reports: Hx Asthma, Hx Chronic Obstructive Pulmonary Disease (COPD) GI History: Denies: Hx Ulcer History: Denies: Hx Dialysis, Hx Kidney Stones, Hx Renal Disease Musculoskeletal History: Reports: Hx Back Problems - DDD lumbar spine Denies: Hx Osteoporosis Sensory History: Denies: Hx Hearing Aid Psychiatric History: Reports: Hx Bipolar Disorder Denies: Hx Panic Disorder - Surgical History Surgery Procedure, Year, and Place: C SPINE SURGERY, TUBAL LIGATION; HYSTERECTOMY, C SECTION, RT KNEE SCOPE X2, C5-C6 FUSSION WITH FLEX PLATE-; right knee ACL repair 2003. BILATERAL WRIST CARPAL TUNNEL Infectious Disease History: Yes Infectious Disease History: Reports: Hx Human Immunodeficiency Virus (HIV) Denies: Hx Clostridium Difficile, Hx Hepatitis, Hx of Known/Suspected MRSA, Hx Shingles, Hx Tuberculosis, Hx Known/Suspected VRE, Hx Known/Suspected VRSA, History Other Infectious Disease, Traveled Outside the [place] in Last 30 Days - Family History Known Family History: Positive: Cardiac Disease, Hypertension, Diabetes - Social History Occupation: Disabled Lives: With Family Alcohol Use: Rare Hx Substance Use: No Substance Use Type: Reports: None, Prescribed Substance Use Comment - Amount & Last Used: Hydrocodone Hx Tobacco Use: Yes Smoking Status (MU): Current Every Day Smoker Amount Used/How Often: 1/2 ppd Review of Systems Negative: Fever Positive: Other - sudden onset right sided pelvic pain Negative: dysuria Positive: Other - Negative recent trauma All Other Systems Reviewed And Are Negative: Yes Physical Exam - Summary Physical Exam Summary: General: Well appearing, moderate pain distress Skin: Warm, Skin Color Reflects Adequate Perfusion, Dry Eyes: EOMI, DELORIS ENT: Pharynx normal, TMs normal Neck: Supple, nontender Respiratory: CTA, breath sounds present, no rhonchi, no wheezes, no rales Cardiovascular: RRR, no murmur, no rub, no gallop Abdomen: Soft, Tenderness on the right and inferior to the umbilicus, No CVA tenderness, Non-distended, no guarding, no rebound Bowel: Present Musculoskeletal: NAMITA, No edema Neuro: Sensory/motor intact, A&Ox3, CN intact 2-12 Psych: Affect/mood appropriate Triage Information Reviewed: Yes Vital Signs On Initial Exam: Initial Vitals Temp Pulse Resp BP Pulse Ox 98.0 F 91 18 131/93 98 01/04/17 07:46 01/04/17 07:46 01/04/17 07:46 01/04/17 07:46 01/04/17 07:46 Vital Signs Reviewed: Yes Diagnostics - Vital Signs Vital Signs Temp Pulse Resp BP Pulse Ox 01/04/17 07:46 98.0 F 91 18 131/93 98 - Laboratory Lab Results: Lab Results 01/04/17 01/04/17 01/04/17 Range/Units 11:25 11:25 14:50 WBC 7.5 (3.5-10.8) 10^3/ul RBC 4.93 (4.0-5.4) 10^6/ul Hgb 14.8 (12.0-16.0) g/dl Hct 44 (35-47) % MCV 90 (80-97) fL MCH 30 (27-31) pg MCHC 34 (31-36) g/dl RDW 16 H (10.5-15) % Plt Count 250 (150-450) 10^3/ul MPV 8 (7.4-10.4) um3 Neut % (Auto) 64.4 (38-83) % Lymph % (Auto) 22.9 L (25-47) % Glasscock % (Auto) 7.1 (1-9) % Eos % (Auto) 4.5 (0-6) % Baso % (Auto) 1.1 (0-2) % Absolute Neuts (auto) 4.8 (1.5-7.7) 10^3/ul Absolute Lymphs (auto) 1.7 (1.0-4.8) 10^3/ul Absolute Monos (auto) 0.5 (0-0.8) 10^3/ul Absolute Eos (auto) 0.3 (0-0.6) 10^3/ul Absolute Basos (auto) 0.1 (0-0.2) 10^3/ul Absolute Nucleated RBC 0 10^3/ul Nucleated RBC % 0.1 Sodium 134 (133-145) mmol/L Potassium 4.1 (3.5-5.0) mmol/L Chloride 108 (101-111) mmol/L Carbon Dioxide 20 L (22-32) mmol/L Anion Gap 6 (2-11) mmol/L BUN 14 (6-24) mg/dL Creatinine 0.78 (0.51-0.95) mg/dL Est GFR ( Amer) 103.2 (>60) Est GFR (Non-Af Amer) 80.2 (>60) BUN/Creatinine Ratio 17.9 (8-20) Glucose 85 (70-100) mg/dL Calcium 9.6 (8.6-10.3) mg/dL Total Bilirubin 0.40 (0.2-1.0) mg/dL AST 13 (13-39) U/L ALT 8 (7-52) U/L Alkaline Phosphatase 72 (34-104) U/L Total Creatine Kinase 31 (10-223) U/L C-Reactive Protein 3.07 (< 5.00) mg/L Total Protein 7.2 (6.4-8.9) g/dL Albumin 3.8 (3.2-5.2) g/dL Globulin 3.4 (2-4) g/dL Albumin/Globulin Ratio 1.1 (1-3) Urine Color Yellow Urine Appearance Clear Urine pH 6.0 (5-9) Ur Specific [place] 1.050 H (1.010-1.030) Urine Protein Negative (Negative) Urine Ketones Negative (Negative) Urine Blood 1+ H (Negative) Urine Nitrate Negative (Negative) Urine Bilirubin Negative (Negative) Urine Urobilinogen Negative (Negative) Ur Leukocyte Esterase Negative (Negative) Urine WBC (Auto) Trace(0-5/hpf) (Absent) Urine RBC (Auto) 3+(>10/hpf) H (Absent) Ur Squamous Epith Cells Present H (Absent) Urine Bacteria Absent (Absent) Urine Glucose Negative (Negative) Result Diagrams: 01/04/17 11:25 01/04/17 11:25 Lab Statement: Any lab studies that have been ordered have been reviewed, and results considered in the medical decision making process. - CT A/P CT Interpretation Completed By: Radiologist - 1. DIVERTICULOSIS. 2. FATTY INFILTRATION OF THE LIVER WITH MILD HEPATOMEGALY. ED physician has reviewed this radiology report and agrees. Complex Multi-Symp Course/Dx Course Of Treatment: 46 yo female with right lower quadrant pain (s/p appy and oophorectomy on that side) with urine showing rbc's (s/p hysterectomy) ct read as neg, talked with Dr. Tejada about whether their could be a stone (ct was with contrast) but none was seen. 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
== END 2017-01-04 16:33 | disposition home or self-care (01) ==
LOC: ED 07:37
DX: R10.31 Right lower quadrant pain (principal); K57.30 Diverticulosis of large intestine without perforation or abscess without bleeding; K76.0 Fatty (change of) liver, not elsewhere classified; R16.0 Hepatomegaly, not elsewhere classified; Z90.89 Acquired absence of other organs; J44.9 Chronic obstructive pulmonary disease, unspecified; M51.36 Other intervertebral disc degeneration, lumbar region; F31.9 Bipolar disorder, unspecified; Z94.83 Pancreas transplant status; Z88.8 Allergy status to other drugs, medicaments and biological substances; F17.210 Nicotine dependence, cigarettes, uncomplicated
CPT/HCPCS: 36415; 74177; 80053; 81003; 81015; 82550; 85025; 86140; 96361; 96374; 96375; 96376; 99283; A9270-GY; J1170; J2405; Q9967

== ENCOUNTER → 2017-01-16 09:17 | Emergency (ER) | payer MEDICARE, MEDICAID ==
[~2017-01-16 09:17] MED LIST: Clindamycin CAP* 150 MG PO ONE; Ibuprofen TAB* 600 MG PO ONE
[2017-01-16 09:21] VITALS: BP 142/90
--- NOTE | 2017-01-16 10:22 | ED ---
Throat Pain/Nasal Congestion - HPI Summary HPI Summary: 46 female presents to ED with complaints of dental pain, upper lip and palate swelling. Pain and swelling of left maxillary area as well. States symptoms begin Monday01/14/17. Took hydrocodone for pain and some old amoxicillin. However has had minimal relief. Hurts to chew foods and therefore has been eating soft foods. Denies known fever. Denies vomiting, trouble swallowing and trouble breathing. Admits to dental caries. Has been attempting to make dental appointment but has been putting it off. Patient is HIV positive. No new medications, foods, lotions. No other complaints at this time. No PMHx other than HIV. - History of Current Complaint Chief Complaint: EDGeneral Time Seen by Provider: 01/16/17 09:23 Hx Obtained From: Patient Onset/Duration: Sudden Onset, Lasting Days, Still Present, Worse Since Severity: Mild Cough: None - Allergies/Home Medications Allergies/Adverse Reactions: Allergies Allergy/AdvReac Type Severity Reaction Status Date / Time Bupropion [From Wellbutrin] Allergy Hives Verified 01/11/17 09:07 PMH/Surg Hx/FS Hx/Imm Hx Endocrine/Hematology History: Denies: Hx Anticoagulant Therapy, Hx Blood Disorders, Hx Diabetes, Hx Thyroid Disease Cardiovascular History: Denies: Hx Hypertension, Hx Pacemaker/ICD Respiratory History: Reports: Hx Asthma, Hx Chronic Obstructive Pulmonary Disease (COPD) GI History: Denies: Hx Ulcer History: Denies: Hx Dialysis, Hx Kidney Stones, Hx Renal Disease Musculoskeletal History: Reports: Hx Back Problems - DDD lumbar spine Denies: Hx Osteoporosis Sensory History: Denies: Hx Hearing Aid Psychiatric History: Reports: Hx Bipolar Disorder Denies: Hx Panic Disorder - Surgical History Surgery Procedure, Year, and Place: C SPINE SURGERY, TUBAL LIGATION; HYSTERECTOMY, C SECTION, RT KNEE SCOPE X2, C5-C6 FUSSION WITH FLEX PLATE-; right knee ACL repair 2003. BILATERAL WRIST CARPAL TUNNEL - Immunization History Immunizations Up to Date: Yes Infectious Disease History: No Infectious Disease History: Reports: Hx Human Immunodeficiency Virus (HIV) Denies: Hx Clostridium Difficile, Hx Hepatitis, Hx of Known/Suspected MRSA, Hx Shingles, Hx Tuberculosis, Hx Known/Suspected VRE, Hx Known/Suspected VRSA, History Other Infectious Disease, Traveled Outside the [place] in Last 30 Days - Family History Known Family History: Positive: Cardiac Disease, Hypertension, Diabetes - Social History Alcohol Use: Occasionally Hx Substance Use: No Substance Use Type: Reports: None Substance Use Comment - Amount & Last Used: Hydrocodone Hx Tobacco Use: Yes Smoking Status (MU): Light Every Day Tobacco Smoker Amount Used/How Often: 1/2 ppd Review of Systems Constitutional: Negative Positive: Dental Pain - swelling Cardiovascular: Negative Respiratory: Negative Gastrointestinal: Negative All Other Systems Reviewed And Are Negative: Yes Physical Exam Triage Information Reviewed: Yes Vital Signs On Initial Exam: Initial Vitals Temp Pulse Resp BP Pulse Ox 99.1 F 85 16 142/90 99 01/16/17 09:18 01/16/17 09:18 01/16/17 09:18 01/16/17 09:18 01/16/17 09:18 Vital Signs Reviewed: Yes Appearance: Positive: Well-Appearing, No Pain Distress, Well-Nourished Skin: Positive: Warm, Skin Color Reflects Adequate Perfusion, Dry. Negative: Cold, Cyanosis @, Mass @, Erythema @ Head/Face: Positive: Normal Head/Face Inspection - other than upper lip swelling Eyes: Positive: Normal ENT: Positive: Normal ENT inspection, Hearing grossly normal, Pharynx normal, TMs normal, Dental tenderness - upper front #5-9, Uvula midline - patent airway , Other - upper palate appears slightly swolle. Negative: Nasal congestion, Nasal drainage, Tonsillar swelling, Tonsillar exudate, Trismus Dental: Positive: Percussion Tenderness @ - left maxillary, Gross Decay/Caries @ , Dental Fracture @, Abscess @ - non palpable, Cervical Lymphadenopathy Neck: Positive: Supple, Nontender Respiratory/Lung Sounds: Positive: Clear to Auscultation, Breath Sounds Present. Negative: Rales, Rhonchi Cardiovascular: Positive: Normal, RRR, Pulses are Symmetrical in both Upper and Lower Extremities. Negative: Murmur, Rub Abdomen Description: Positive: Nontender, Soft Bowel Sounds: Positive: Present Musculoskeletal: Positive: Normal, Strength/ROM Intact Neurological: Positive: Normal, Sensory/Motor Intact, Alert, Oriented to Person Place, Time, Normal Gait Diagnostics - Vital Signs Vital Signs Temp Pulse Resp BP Pulse Ox 01/16/17 09:18 99.1 F 85 16 142/90 99 - Laboratory Lab Statement: Any lab studies that have been ordered have been reviewed, and results considered in the medical decision making process. EENT Course/Dx - Course Course Of Treatment: will switch antibiotic to clindamycin. no concern for other etiology at this time. patent airway. no concern for allergy. ibuprofen for pain and inflammation. drink plenty of fluids. probiotics. aware of worsening signs and symptoms. follow up dentist/oral surgeon. - Differential Diagnoses Differential Diagnoses: Dental Abscess, Dental Caries, Fracture, Gingivitis, Other - angioedema - Diagnoses Provider Diagnoses: Dental abscess, Swollen upper lip Discharge - Discharge Plan Condition: Stable Disposition: HOME Prescriptions: Clindamycin Cap(NF) [Clindamycin Cap 300 mg Cap(NF)] 300 mg PO QID #40 cap Ibuprofen TAB* [Motrin TAB* 600 MG] 600 mg PO Q6H PRN #30 tab PRN Reason: Pain Patient Education Materials: Dental Abscess (ED) Referrals: Adebayo Arndt MD [Primary Care Provider] - Torey Huang MD [Doctor of Dental Medicine] - Additional Instructions: Take prescribed medication as directed to help with pain and swelling and to fight infection. Highly recommend taking probiotic pill and/or eating serbian yogurt daily to replenish normal calvin, in between antibiotic doses. Follow up with dentist/oral surgeon TRINA. Ice swelling 20 minutes on and 20 minutes off. Drink plenty of fluids. Keep good oral hygiene. Any new or worsening symptoms please seek medical attention promptly, as discussed.
== END | disposition home or self-care (01) ==
LOC: ED 09:17
DX: K08.89 Other specified disorders of teeth and supporting structures (principal); F17.210 Nicotine dependence, cigarettes, uncomplicated
CPT/HCPCS: 99282; A9270-GY

== ENCOUNTER 2017-02-20 10:36 | Emergency (ER) | payer MEDICARE, MEDICAID ==
[2017-02-20 12:08] LABS: Hematocrit 47 % (35-47); Hemoglobin 15.6 g/dl (12.0-16.0); Mean Corpuscular HGB Conc 34 g/dl (31-36); Mean Corpuscular Hemoglobin 30 pg (27-31); Mean Corpuscular Volume 90 fL (80-97); Mean Platelet Volume 9 um3 (7.4-10.4); Red Blood Count 5.19 10^6/ul (4.0-5.4); Red Cell Distribution Width 15 % (10.5-15); White Blood Count 8.2 10^3/ul (3.5-10.8)
[2017-02-20 12:26] LABS: ALT 7 U/L (7-52); AST 15 U/L (13-39); Albumin 4.4 g/dL (3.2-5.2); Alkaline Phosphatase 77 U/L (34-104); Anion Gap 4 mmol/L (2-11); BUN/Creatinine Ratio 11.3 (8-20); Blood Urea Nitrogen 11 mg/dL (6-24); C Reactive Protein 4.33 mg/L (< 5.00); CO2 Carbon Dioxide 25 mmol/L (22-32); Calcium 9.9 mg/dL (8.6-10.3); Chloride 106 mmol/L (101-111); EGFR African American 80.2 (>60); EGFR Non-African American 62.4 (>60); Globulin 3.7 g/dL (2-4); Glucose 91 mg/dL (70-100); Lipase 22 U/L (11.0-82.0); Potassium 4.4 mmol/L (3.5-5.0); Sodium 135 mmol/L (133-145); Total Protein 8.1 g/dL (6.4-8.9)
[2017-02-20] MEDS ORDERED: Ketorolac INJ* 60 MG/2 ML VIAL IM ONE (13:49)
--- NOTE | 2017-02-20 13:50 | ED ---
Abdominal Pain/Female - HPI Summary HPI Summary: 46 female presents to ED with complaints of left lower abdominal/ovary pain. Patient states she has her left ovary left and it has a cyst that has been there for " a while." Has appointment with Dr Matamoros for possible surgical removal this week. Patient states over the weekend the pain began to increase. She took ibuprofen, with last dose at 3am today with little relief. Patient spoke with Dr Matamoros who stated that she should come here for ultrasound of ovary and work up. States pain is very similar to ovarian pain she has had from cyst in the past however worse. Denies fever/chills. No nausea, vomiting, diarrhea or constipation. Has had normal bowel movements. Denies urinary symptoms, vaginal bleeding, vaginal discharge, vaginal itching and concern for STD. No other complaints. No other medications. No PMHx. Had hysterectomy in her 30's. - History of Current Complaint Chief Complaint: EDAbdPain Stated Complaint: ABD PAIN Time Seen by Provider: 02/20/17 12:00 Hx Obtained From: Patient ?: No Onset/Duration: Gradual Onset, Lasting Weeks, Still Present, Worse Since - past 2-3 days Timing: Constant Severity Initially: Mild Severity Currently: Moderate Pain Intensity: 6 Pain Scale Used: 0-10 Numeric Location: Discrete At: LLQ - pelvic area/ovary Radiates: No Character: Sharp - aching Aggravating Factor(s): Nothing Alleviating Factor(s): Position Associated Signs and Symptoms: Negative: Constipation, Blood in Stool, Urinary Symptoms, Vaginal Bleeding, Vaginal Discharge, Nausea, Vomiting Allergies/Adverse Reactions: Allergies Allergy/AdvReac Type Severity Reaction Status Date / Time Bupropion [From Wellbutrin] Allergy Hives Verified 02/20/17 10:43 PMH/Surg Hx/FS Hx/Imm Hx Endocrine/Hematology History: Denies: Hx Anticoagulant Therapy, Hx Blood Disorders, Hx Diabetes, Hx Thyroid Disease Cardiovascular History: Denies: Hx Hypertension, Hx Pacemaker/ICD Respiratory History: Reports: Hx Asthma, Hx Chronic Obstructive Pulmonary Disease (COPD) GI History: Denies: Hx Ulcer History: Denies: Hx Dialysis, Hx Kidney Stones, Hx Renal Disease Musculoskeletal History: Reports: Hx Back Problems - DDD lumbar spine Denies: Hx Osteoporosis Sensory History: Denies: Hx Hearing Aid Psychiatric History: Reports: Hx Bipolar Disorder Denies: Hx Panic Disorder - Surgical History Surgery Procedure, Year, and Place: C SPINE SURGERY, TUBAL LIGATION; HYSTERECTOMY, C SECTION, RT KNEE SCOPE X2, C5-C6 FUSSION WITH FLEX PLATE-; right knee ACL repair 2003. BILATERAL WRIST CARPAL TUNNEL - Immunization History Immunizations Up to Date: Yes Infectious Disease History: No Infectious Disease History: Reports: Hx Human Immunodeficiency Virus (HIV) Denies: Hx Clostridium Difficile, Hx Hepatitis, Hx of Known/Suspected MRSA, Hx Shingles, Hx Tuberculosis, Hx Known/Suspected VRE, Hx Known/Suspected VRSA, History Other Infectious Disease, Traveled Outside the [place] in Last 30 Days - Family History Known Family History: Positive: Cardiac Disease, Hypertension, Diabetes - Social History Alcohol Use: Occasionally Hx Substance Use: No Substance Use Type: Reports: None Substance Use Comment - Amount & Last Used: Hydrocodone Hx Tobacco Use: Yes Smoking Status (MU): Light Every Day Tobacco Smoker Amount Used/How Often: 1/2 ppd Review of Systems Constitutional: Negative Cardiovascular: Negative Respiratory: Negative Positive: Abdominal Pain Genitourinary: Negative Musculoskeletal: Negative All Other Systems Reviewed And Are Negative: Yes Physical Exam Triage Information Reviewed: Yes Vital Signs On Initial Exam: Initial Vitals Temp Pulse Resp BP Pulse Ox 98.6 F 81 16 151/91 100 02/20/17 10:40 02/20/17 10:40 02/20/17 10:40 02/20/17 10:40 02/20/17 10:40 Bp improved to 140/87 at d/c after pain improved Vital Signs Reviewed: Yes Appearance: Positive: Well-Appearing, Well-Nourished, Pain Distress - moderate Skin: Positive: Warm, Skin Color Reflects Adequate Perfusion, Dry. Negative: Cold, Numb, Cyanosis @, Jaundiced, Pale, Erythema @ Head/Face: Positive: Normal Head/Face Inspection Eyes: Positive: Conjunctiva Clear ENT: Positive: Hearing grossly normal, Pharynx normal Neck: Positive: Supple Respiratory/Lung Sounds: Positive: Clear to Auscultation, Breath Sounds Present. Negative: Rales, Rhonchi, Wheezes Cardiovascular: Positive: Normal, RRR, Pulses are Symmetrical in both Upper and Lower Extremities. Negative: Murmur, Rub Abdomen Description: Positive: No Organomegaly, Soft, Other: - left pelvic tenderness on palpation LLQ. Negative: Bruit, CVA Tenderness (R), Distended, Guarding, McBurney's Point Tenderness, Pulsatile Mass Bowel Sounds: Positive: Present Pelvic Exam: Positive: external exam normal, speculum exam normal, bimanual exam normal, no cerv. motion tender, no masses, tender adnexa - left. Negative : active bleeding, blood, cervicitis, discharge - normal, tender w/ cervical motion Musculoskeletal: Positive: Normal, Strength/ROM Intact Neurological: Positive: Normal, Sensory/Motor Intact, Alert, Oriented to Person Place, Time - Miriam Coma Scale Coma Scale Total: 15 Diagnostics - Vital Signs Vital Signs Temp Pulse Resp BP Pulse Ox 02/20/17 12:04 79 100 02/20/17 12:01 149/100 02/20/17 10:40 98.6 F 81 16 151/91 100 - Laboratory Lab Results: Lab Results 02/20/17 02/20/17 02/20/17 Range/Units 11:53 11:53 11:53 WBC 8.2 (3.5-10.8) 10^3/ul RBC 5.19 (4.0-5.4) 10^6/ul Hgb 15.6 (12.0-16.0) g/dl Hct 47 (35-47) % MCV 90 (80-97) fL MCH 30 (27-31) pg MCHC 34 (31-36) g/dl RDW 15 (10.5-15) % Plt Count 241 (150-450) 10^3/ul MPV 9 (7.4-10.4) um3 Neut % (Auto) 71.5 (38-83) % Lymph % (Auto) 18.8 L (25-47) % [place] % (Auto) 5.4 (1-9) % Eos % (Auto) 3.8 (0-6) % Baso % (Auto) 0.5 (0-2) % Absolute Neuts (auto) 5.8 (1.5-7.7) 10^3/ul Absolute Lymphs (auto) 1.5 (1.0-4.8) 10^3/ul Absolute Monos (auto) 0.4 (0-0.8) 10^3/ul Absolute Eos (auto) 0.3 (0-0.6) 10^3/ul Absolute Basos (auto) 0 (0-0.2) 10^3/ul Absolute Nucleated RBC 0.02 10^3/ul Nucleated RBC % 0.2 Sodium 135 (133-145) mmol/L Potassium 4.4 (3.5-5.0) mmol/L Chloride 106 (101-111) mmol/L Carbon Dioxide 25 (22-32) mmol/L Anion Gap 4 (2-11) mmol/L BUN 11 (6-24) mg/dL Creatinine 0.97 H (0.51-0.95) mg/dL Est GFR ( Amer) 80.2 (>60) Est GFR (Non-Af Amer) 62.4 (>60) BUN/Creatinine Ratio 11.3 (8-20) Glucose 91 (70-100) mg/dL Lactic Acid 0.7 (0.5-2.0) mmol/L Calcium 9.9 (8.6-10.3) mg/dL Total Bilirubin 0.30 (0.2-1.0) mg/dL AST 15 (13-39) U/L ALT 7 (7-52) U/L Alkaline Phosphatase 77 (34-104) U/L C-Reactive Protein 4.33 (< 5.00) mg/L Total Protein 8.1 (6.4-8.9) g/dL Albumin 4.4 (3.2-5.2) g/dL Globulin 3.7 (2-4) g/dL Albumin/Globulin Ratio 1.2 (1-3) Lipase 22 (11.0-82.0) U/L Beta HCG, Quant < 0.60 mIU/mL Result Diagrams: 02/20/17 11:53 02/20/17 11:53 Lab Statement: Any lab studies that have been ordered have been reviewed, and results considered in the medical decision making process. - Ultrasound No standard instances Ultrasound Interpretation: Positive (See Comments) - HYSTERECTOMY AND RIGHT OOPHORECTOMY. LEFT OVARIAN CYSTS. CONSIDER FOLLOW-UP REEVALUATION Ultrasound Interpretation Completed By: Radiologist Re-Evaluation - Re-Evaluation First Eval Re-Evaluation Time: 15:00 Change: Improved - had some relief after toradol. still having discomfort Abdominal Pain Fem Course/Dx - Course Course Of Treatment: labs obtained and unremarkable. US obtained and showed 2 decent sized ovarian cysts of left ovary as rest of reproductive parts have been surgically removed. no evidence of torsion at this time. pain improved after medication. has appointment with Dr Matamoros on Monday02/22/17 for consult. Cysts have been present for the past few years, have been causing increased pain lately. No concern for other etiology or GI etiology at this time. Normal vitals. Patient refused STD testing. Also discussed presence of WBC , bacteria and blood in urine possible UTI however patient asymptomatic and said she wanted to wait for culture and did not want to be treated for UTI at this time. Stated this could be contributing to her pain, however patient still refused beginning treatment as she was not having urinary symptoms at this time. No other concerns at this time. Patient has follow up appt. continue ibuprofen starting tomrrow and norco for break through pain. Encouraged hot baths and heating pad. Aware of worsening signs and symptoms such as ovarian torsion symptoms. Affirm results pending. - Diagnoses Differential Diagnosis: Positive: Constipation, Ovarian Cyst, Pelvic Inflammatory Disease, Urinary Tract Infection Provider Diagnoses: Ovarian cyst, left Discharge - Discharge Plan Condition: Stable Disposition: HOME Prescriptions: HYDROcodone/ACETAMIN 5-325 MG* [Raymond 5-325 TAB*] 1 tab PO Q6H PRN #10 tab MDD 2 PRN Reason: Pain Ibuprofen TAB* [Motrin TAB* 600 MG] 600 mg PO Q6H PRN #15 tab PRN Reason: Pain Patient Education Materials: Ovarian Cyst (ED) Referrals: Adebayo Arndt MD [Primary Care Provider] - Aashish Matamoros MD [Medical Doctor] - Additional Instructions: Continue taking ibuprofen for pain, beginning tomorrow as you already took todays' dose limit while in ED. Take with food. Stronger pain medication for break through pain only as needed. Do not drive while taking this medication. Apply heating pad and rest. Follow up with Dr Matamoros Monday, as already scheduled to discuss further treatment. Any new or worsening signs/symptoms, as we discussed please return to ED and seek medical attention. Follow up PCP.
[2017-02-20 14:05] LABS: Urine Bacteria 1+ (Absent); Urine Bilirubin Negative (Negative); Urine Glucose Negative (Negative); Urine Nitrite Positive (Negative)
--- NOTE | 2017-02-20 14:52 | RAD ---
INDICATION: Left pelvic pain COMPARISON: CT January 04, 2017; pelvic sonogram February 04, 2016 TECHNIQUE: Longitudinal and transverse transvaginal scans of the pelvis were obtained. FINDINGS: Uterus: There is hysterectomy. Free fluid: There is no significant free fluid . Ovaries: The right ovary is absent The left ovary measures 4.7 x 2.9 x 3.2. There are 2 cysts, one measuring 3.1 x 1.9 x 2.6 and the other 2.1 x 1.1 x 1.7 cm. Formerly, there multiple left ovarian cysts of similar size. Doppler interrogation demonstrates flow to the left ovary. Other: None IMPRESSION: HYSTERECTOMY AND RIGHT OOPHORECTOMY. LEFT OVARIAN CYSTS. CONSIDER FOLLOW-UP REEVALUATION
[2017-02-20] MEDS ORDERED: HYDROcodone/ACETAMIN 5-325 MG* 1 TAB PO ONE (15:40)
[2017-02-20 18:14] VITALS: BP 140/87
--- NOTE | 2017-02-22 12:22 | PN ---
Progress Note - Progress Note Date of Service: 02/22/17 Note: urine culture grew E coli >100,000 so will treat. sent script for augmentin 500mg x5days. spoke with patient about adding medication to treat for uti.
--- NOTE | 2017-02-23 10:28 | PN ---
Progress Note - Progress Note Date of Service: 02/23/17 Note: Patient placed on Augmentin which final culture shows is sensitive to. no further action required.
== END 2017-02-20 16:00 | disposition home or self-care (01) ==
LOC: ED 10:36
DX: N83.202 Unspecified ovarian cyst, left side (principal); F31.9 Bipolar disorder, unspecified; F17.210 Nicotine dependence, cigarettes, uncomplicated; N39.0 Urinary tract infection, site not specified; B96.20 Unspecified Escherichia coli [E. coli] as the cause of diseases classified elsewhere
CPT/HCPCS: 36415; 76830; 80053; 81003; 81015; 83605; 83690; 84702; 85025; 86140; 87077; 87086; 87186; 87480; 87510; 96372; 99282; J1885

== ENCOUNTER 2017-04-19 11:09 | Emergency (ER) | payer MEDICARE, MEDICAID ==
--- NOTE | 2017-04-19 13:14 | RAD ---
HISTORY: Left forearm pain COMPARISONS: None VIEWS: 3, Frontal and lateral views of the left forearm FINDINGS: BONE DENSITY: Normal. BONES: There is no displaced fracture. JOINTS: There is no arthropathy. ALIGNMENT: There is no dislocation. SOFT TISSUES: Unremarkable. OTHER FINDINGS: None. IMPRESSION: NO ACUTE OSSEOUS INJURY. IF SYMPTOMS PERSIST, RECOMMEND REPEAT IMAGING.
--- NOTE | 2017-04-19 13:33 | RAD ---
HISTORY: Left arm paresthesia COMPARISONS: December 15, 2008 TECHNIQUE: Multiple contiguous axial CT scans were obtained of the cervical spine without intravenous contrast, with coronal and sagittal multiplanar reformations. FINDINGS: BRAIN: The visualized brain is unremarkable CENTRAL CANAL: Evaluation of the central canal is limited on CT technique; however, there is no obvious canalicular mass or epidural hemorrhage. ALIGNMENT: There is straightening of the cervical lordosis. VERTEBRAL BODIES: The patient is status post anterior fusion at C5-C6. There is no hardware failure or osteolysis. JOINTS: There is minimal uncovertebral and facet hypertrophy. MUSCULATURE: Unremarkable INTERVERTEBRAL DISCS: There is diffuse loss of intervertebral disc height. AXIAL IMAGES: C2-C3: There is no osseous neural foraminal narrowing or central canal stenosis. C3-C4: There is no osseous neural foraminal narrowing or central canal stenosis. C4-C5: There is no osseous neural foraminal narrowing or central canal stenosis. C5-C6: There is bilateral uncovertebral hypertrophy. There is moderate bilateral neural foraminal narrowing. There is no osseous central canal stenosis. C6-C7: There is no osseous neural foraminal narrowing or central canal stenosis. C7-T1: There is no osseous neural foraminal narrowing or central canal stenosis. SOFT TISSUES: The visualized soft tissues of the neck are unremarkable. The prevertebral fat stripe is preserved. OTHER: None. IMPRESSION: 1. STATUS POST SPINAL FUSION. 2. MILD DEGENERATIVE DISC DISEASE AND OSTEOPOROSIS. 3. THERE IS NEURAL FORAMINAL NARROWING AT C5-C6. THERE IS NO SIGNIFICANT OSSEOUS CENTRAL CANAL STENOSIS.
--- NOTE | 2017-04-19 13:38 | ED ---
Upper Extremity Pain - HPI Summary HPI Summary: 46F presents with left arm pain for the past month. She denies any injury. She states the pain is greatest over her proximal aspect of her left forearm. She states she has sometimes has sharp pain that radiates from her left elbow down to all of her fingers. She has a history of a spinal fusion at C5-C6. She denies any neck pain. She admits to hypersensitivity of the area. There is occasionally some numbness and tingling. She denies any weakness. She states that sometimes it feels like a muscle spasm in her left forearm. She has not seen on for this. She has not taking anything for her symptoms. She is not on blood thinners. She denies any history of blood clots. She denies any recent travel or surgeries. She denies any edema to the area. She is right handed. - History of Current Complaint Chief Complaint: EDExtremityUpper Stated Complaint: ARM INJURY Time Seen by Provider: 04/19/17 12:00 - Allergies/Home Medications Allergies/Adverse Reactions: Allergies Allergy/AdvReac Type Severity Reaction Status Date / Time bupropion [From Wellbutrin] Allergy Hives Verified 04/19/17 09:24 PMH/Surg Hx/FS Hx/Imm Hx Endocrine/Hematology History: Denies: Hx Anticoagulant Therapy, Hx Blood Disorders, Hx Diabetes, Hx Thyroid Disease Cardiovascular History: Denies: Hx Hypertension, Hx Pacemaker/ICD Respiratory History: Reports: Hx Asthma, Hx Chronic Obstructive Pulmonary Disease (COPD) GI History: Denies: Hx Ulcer History: Denies: Hx Dialysis, Hx Kidney Stones, Hx Renal Disease Musculoskeletal History: Reports: Hx Back Problems - DDD lumbar spine Denies: Hx Osteoporosis Sensory History: Denies: Hx Hearing Aid Psychiatric History: Reports: Hx Anxiety, Hx Bipolar Disorder Denies: Hx Panic Disorder - Surgical History Surgery Procedure, Year, and Place: C SPINE SURGERY, TUBAL LIGATION; HYSTERECTOMY, C SECTION, RT KNEE SCOPE X2, C5-C6 FUSION WITH FLEX PLATE-; right knee ACL repair 2003. BILATERAL WRIST CARPAL TUNNEL Infectious Disease History: Yes Infectious Disease History: Reports: Hx Human Immunodeficiency Virus (HIV) Denies: Hx Clostridium Difficile, Hx Hepatitis, Hx of Known/Suspected MRSA, Hx Shingles, Hx Tuberculosis, Hx Known/Suspected VRE, Hx Known/Suspected VRSA, History Other Infectious Disease, Traveled Outside the [place] in Last 30 Days - Family History Known Family History: Positive: Cardiac Disease, Hypertension, Diabetes - Social History Alcohol Use: Weekly Alcohol Amount: 2 drinks per week Hx Substance Use: No Substance Use Type: Reports: None Substance Use Comment - Amount & Last Used: Hydrocodone Hx Tobacco Use: Yes Smoking Status (MU): Current Every Day Smoker Type: Cigarettes Amount Used/How Often: 1/2 ppd Review of Systems Negative: Fever Negative: Chest Pain Negative: Shortness Of Breath Positive: Myalgia - left arm pain Positive: Paresthesia All Other Systems Reviewed And Are Negative: Yes Physical Exam Triage Information Reviewed: Yes Vital Signs On Initial Exam: Initial Vitals Temp Pulse Resp BP Pulse Ox 99.6 F 81 20 125/78 99 04/19/17 11:16 04/19/17 11:16 04/19/17 11:16 04/19/17 11:16 04/19/17 11:16 Vital Signs Reviewed: Yes Appearance: Positive: Well-Appearing Skin: Positive: Warm, Dry Head/Face: Positive: Normal Head/Face Inspection Eyes: Positive: Normal, Conjunctiva Clear Respiratory/Lung Sounds: Positive: Clear to Auscultation, Breath Sounds Present Cardiovascular: Positive: Normal, RRR Musculoskeletal: Positive: Strength/ROM Intact - left arm, Other - Good pulses , sensation grossly decreased compared to right side, pain greatest with flexion at the wrist, nontender epicondyles, nontender neck, full range of motion neck Neurological: Positive: Normal Psychiatric: Positive: Normal Diagnostics - Vital Signs Vital Signs Temp Pulse Resp BP Pulse Ox 04/19/17 11:16 99.6 F 81 20 125/78 99 - Laboratory Lab Statement: Any lab studies that have been ordered have been reviewed, and results considered in the medical decision making process. - Radiology forearm Xray Interpretation: No Acute Changes Radiology Interpretation Completed By: Radiologist - CT neck CT Interpretation: Positive (See Comments) - IMPRESSION: 1. STATUS POST SPINAL FUSION. 2. MILD DEGENERATIVE DISC DISEASE AND OSTEOPOROSIS. 3. THERE IS NEURAL FORAMINAL NARROWING AT C5-C6. THERE IS NO SIGNIFICANT OSSEOUS CENTRAL CANAL STENOSIS. CT Interpretation Completed By: Radiologist Course/Dx - Course Course Of Treatment: 46F presents with left arm pain for the past month. She denies any injury. She states the pain is greatest over her proximal aspect of her left forearm. She states she has sometimes has sharp pain that radiates from her left elbow down to all of her fingers. She has a history of a spinal fusion at C5-C6. She denies any neck pain. She admits to hypersensitivity of the area. There is occasionally some numbness and tingling. She denies any weakness. She states that sometimes it feels like a muscle spasm in her left forearm. She has not seen on for this. She has not taking anything for her symptoms. on exam nontender condyles epicondyles. Tenderness over brachial radialis area of left forearm. Decreased sensation compared to right forearm grossly. Nontender neck. Full range of motion neck. Good strength in wrist and elbow. Good pulses. pain greatest with flexion of the wrist. X-ray area normal. CT shows foramen narrowing at C5-C6. Discussed with patient will have patient follow up with neurosurgeon as may be due to neck radiculopathy. Will also follow-up with ortho as maybe tendinitis. Patient understands and agrees with plan. - Diagnoses Differential Diagnosis/HQI/PQRI: Positive: Fracture (Closed), Other - cervical neuropathy, tenditis Provider Diagnoses: Left arm pain Discharge - Discharge Plan Condition: Good Disposition: HOME Patient Education Materials: Paresthesia (ED), Arm Pain (ED) Referrals: Adebayo Arndt MD [Primary Care Provider] - Zach Carreno MD [Medical Doctor] - Additional Instructions: Take Tylenol or ibuprofen every 6 hours as needed for pain Apply ice, rest, elevate Follow up with ortho Return to ED if develop any new or worsening symptoms
[2017-04-19 14:01] VITALS: BP 122/74
== END 2017-04-19 14:00 | disposition home or self-care (01) ==
LOC: ED 11:09
DX: M79.602 Pain in left arm (principal); F17.210 Nicotine dependence, cigarettes, uncomplicated
CPT/HCPCS: 72125; 99282

== ENCOUNTER 2017-05-18 19:40 | Emergency (ER) | payer MEDICARE, MEDICAID ==
[2017-05-18 21:36] VITALS: BP 154/91
== END 2017-05-18 22:04 | disposition left against medical advice (07) ==
LOC: ED 19:40
DX: R10.2 Pelvic and perineal pain (principal); Z53.21 Procedure and treatment not carried out due to patient leaving prior to being seen by health care provider

== ENCOUNTER 2017-05-29 21:50 | Emergency (ER) | payer MEDICARE, MEDICAID ==
[2017-05-30] MEDS ORDERED: Ketorolac INJ* 60 MG/2 ML VIAL IM ONE (00:15)
--- NOTE | 2017-05-30 00:33 | ED ---
Lower Extremity - HPI Summary HPI Summary: 46 female presents ED with complaints of right knee pain that began this morning upon waking up. Patient states she has chronic knee pain. However this felt different and similar to when she tore her ACL twice in the past. Denies any known obvious injury or trauma. Think she may have slept wrong or twisted in her sleep. He tried taking Tylenol without relief. 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 Does not like taking opiate medication. Does have prescribed Toradol however did not try it. Takes Toradol for chronic back pain. Last last took Tylenol this a.m. denies any obvious swelling or bruising. No obvious deformity. Denies any numbness and tingling. No other complaints at this time. No significant past medical history other than previous ACL surgeries and repairs. Is able to bear weight and walk however it is uncomfortable - History of Current Complaint Chief Complaint: EDExtremityLower Stated Complaint: RT KNEE PAIN Time Seen by Provider: 05/29/17 22:50 Hx Obtained From: Patient Mechanism Of Injury: Unknown - None Onset of Pain: Hours Severity Initially: Moderate Severity Currently: Moderate Pain Intensity: 7 Pain Scale Used: 0-10 Numeric Timing: Constant Location: Is Discrete @ - Right anterior medial knee does not radiate Character Of Pain: Aching Associated Signs And Symptoms: Positive: Knee Pain - Right Aggravating Factor(s): Standing, Ambulation, Movement Able to Bear Weight: Yes - with pain - Allergies/Home Medications Allergies/Adverse Reactions: Allergies Allergy/AdvReac Type Severity Reaction Status Date / Time bupropion [From Wellbutrin] Allergy Hives Verified 05/24/17 13:34 PMH/Surg Hx/FS Hx/Imm Hx Endocrine/Hematology History: Denies: Hx Anticoagulant Therapy, Hx Blood Disorders, Hx Diabetes, Hx Thyroid Disease Cardiovascular History: Denies: Hx Hypertension, Hx Pacemaker/ICD Respiratory History: Reports: Hx Asthma, Hx Chronic Obstructive Pulmonary Disease (COPD) GI History: Denies: Hx Ulcer History: Denies: Hx Dialysis, Hx Kidney Stones, Hx Renal Disease Musculoskeletal History: Reports: Hx Back Problems - DDD lumbar spine Denies: Hx Osteoporosis Sensory History: Denies: Hx Hearing Aid Psychiatric History: Reports: Hx Anxiety, Hx Bipolar Disorder Denies: Hx Panic Disorder - Surgical History Surgery Procedure, Year, and Place: C SPINE SURGERY, TUBAL LIGATION; HYSTERECTOMY, C SECTION, RT KNEE SCOPE X2, C5-C6 FUSION WITH FLEX PLATE-; right knee ACL repair 2003. BILATERAL WRIST CARPAL TUNNEL - Immunization History Immunizations Up to Date: Yes Infectious Disease History: Yes Infectious Disease History: Reports: Hx Human Immunodeficiency Virus (HIV) Denies: Hx Clostridium Difficile, Hx Hepatitis, Hx of Known/Suspected MRSA, Hx Shingles, Hx Tuberculosis, Hx Known/Suspected VRE, Hx Known/Suspected VRSA, History Other Infectious Disease, Traveled Outside the [place] in Last 30 Days - Family History Known Family History: Positive: Cardiac Disease, Hypertension, Diabetes - Social History Alcohol Use: Weekly Alcohol Amount: One weekly Hx Substance Use: No Substance Use Type: Reports: None Substance Use Comment - Amount & Last Used: Hydrocodone Hx Tobacco Use: Yes Smoking Status (MU): Current Every Day Smoker Type: Cigarettes Amount Used/How Often: 1/2 ppd Review of Systems Constitutional: Negative Cardiovascular: Negative Respiratory: Negative Positive: Arthralgia, Myalgia - right knee Skin: Negative Neurological: Negative All Other Systems Reviewed And Are Negative: Yes Physical Exam Triage Information Reviewed: Yes Vital Signs On Initial Exam: Initial Vitals Temp Pulse Resp BP Pulse Ox 99.3 F 94 16 149/99 99 05/29/17 21:57 05/29/17 21:57 05/29/17 21:57 05/29/17 21:57 05/29/17 21:57 Vital Signs Reviewed: Yes Appearance: Positive: Well-Appearing, No Pain Distress, Well-Nourished Skin: Positive: Warm, Skin Color Reflects Adequate Perfusion, Dry, Other - No obvious swelling, ecchymosis, deformity normal skin exam. Negative: Cold, Cyanosis @, Pale, Erythema @ Head/Face: Positive: Normal Head/Face Inspection Neck: Positive: Supple, Nontender Respiratory/Lung Sounds: Positive: Clear to Auscultation, Breath Sounds Present. Negative: Rales, Rhonchi, Wheezes Cardiovascular: Positive: Normal, RRR, Pulses are Symmetrical in both Upper and Lower Extremities - 2+. Negative: Murmur, Rub Musculoskeletal: Positive: Normal, Strength/ROM Intact - With pain on flexion/ extension of right knee however is able, Pain @ - Right anterior medial knee, Other - No laxity noted on special tests no obvious deformity, crepitus, step- off lower extremity normal. Negative: Limited @, Interruption @, Abnormal @, Tino Sign Left, Tino Sign Right, Edema Left, Edema Right Neurological: Positive: Normal, Sensory/Motor Intact, Alert, Oriented to Person Place, Time, NV Bundle Intact Distally, Abnormal Gait - Favoring left side due to pain of right knee Diagnostics - Vital Signs Vital Signs Temp Pulse Resp BP Pulse Ox 05/29/17 21:57 99.3 F 94 16 149/99 99 - Laboratory Lab Statement: Any lab studies that have been ordered have been reviewed, and results considered in the medical decision making process. - Radiology right knee Xray Interpretation: No Acute Changes - NO ACUTE OSSEOUS INJURY. IF SYMPTOMS PERSIST, RECOMMEND REPEAT IMAGING. Radiology Interpretation Completed By: ED Physician, Radiologist Lower Extremity Course/Dx - Course Course Of Treatment: Given Toradol for pain. X-ray obtained and negative for any acute injury. Will give the immobilizer and crutches. Has orthopedic appointment in a couple of days. Understands to follow-up for any further imaging or workup required. Rest ice and elevate. Jesus Manuel bandage also apply for compression. Aware worsening signs and symptoms watch out for. Follow-up with orthopedics and PCP. No other concerns at this time. Has very prescribed Toradol at home told to take as directed as needed for pain. Also supplement with Tylenol - Diagnoses Differential Diagnosis/HQI/PQRI: Positive: Contusion, Fracture (Closed), Sprain , Strain Provider Diagnoses: Right knee pain, Knee sprain Discharge - Sign-Out/Discharge Documenting (check all that apply): Discharge - Discharge Plan Condition: Good Disposition: HOME Patient Education Materials: Knee Pain (ED) Referrals: Adebayo Arndt MD [Primary Care Provider] - Fletcher Chaney MD [Medical Doctor] - Additional Instructions: Continue taking any prescribed Toradol as needed for pain at home. Supplement with Tylenol. Rest, ice elevate and avoid use. Wear knee immobilizer and use crutches. Follow-up with orthopedics for further evaluation and possible further imaging, especially if symptoms persist or worsen. Follow-up with PCP. Any new or worsening symptoms please seek medical attention promptly - Billing Disposition and Condition Condition: GOOD Disposition: HOME
[2017-05-30 00:37] VITALS: BP 122/84
--- NOTE | 2017-05-30 07:42 | RAD ---
HISTORY: Pain and swelling, right knee pain COMPARISONS: July 11, 2008 VIEWS: 4, Frontal, lateral, axial, and oblique views of the right knee FINDINGS: BONE DENSITY: Normal. BONES: There is no displaced fracture. JOINTS: There is no arthropathy. There is no suprapatellar joint effusion or lipohemarthrosis. ALIGNMENT: There is no dislocation. SOFT TISSUES: Unremarkable. OTHER FINDINGS: None. IMPRESSION: NO ACUTE OSSEOUS INJURY. IF SYMPTOMS PERSIST, RECOMMEND REPEAT IMAGING.
== END 2017-05-30 00:50 | disposition home or self-care (01) ==
LOC: ED 21:50
DX: S83.91XA Sprain of unspecified site of right knee, initial encounter (principal); M25.561 Pain in right knee; F17.210 Nicotine dependence, cigarettes, uncomplicated; X58.XXXA Exposure to other specified factors, initial encounter; Y92.9 Unspecified place or not applicable
CPT/HCPCS: 96372; 99282; J1885

== ENCOUNTER 2017-07-18 20:27 | Emergency (ER) | payer MEDICARE, MEDICAID ==
[2017-07-18] MEDS ORDERED: Morphine VIAL* 10 MG/ML 1 ML VIAL IM ONE (21:57)
[2017-07-18] MEDS ORDERED: Ketorolac INJ* 30 MG/ML 1 ML VIAL IM ONE (21:58)
[2017-07-18] MEDS ORDERED: Methocarbamol TAB* 500 MG PO ONE (21:58)
[2017-07-18] MEDS ORDERED: Morphine VIAL* 4 MG/ML VIAL (1 ml vial) IV ONE ×2 (22:10→22:13)
--- NOTE | 2017-07-18 22:37 | ED ---
Back Pain - HPI Summary HPI Summary: 47-year-old female presents with back pain past 2 days. She states that increased after she had steroid injection by pain clinic. She states she has history of back pain. This is similar location but is more intense. She is currently taking mobic. She denies any weakness. She states pain isn't related to left leg. She admits to tingling of her left leg. She denies any saddle anesthesia. She denies any fevers. She denies any loss of bowel or bladder. No recent injury. No UTI symptoms. 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 She took tramadol with minimal relief. - History of Current Complaint Chief Complaint: EDBackInjuryPain Stated Complaint: BACK PAIN Time Seen by Provider: 07/18/17 21:15 Pain Intensity: 10 - Allergies/Home Medications Allergies/Adverse Reactions: Allergies Allergy/AdvReac Type Severity Reaction Status Date / Time bupropion [From Wellbutrin] Allergy Hives Verified 06/02/17 12:58 Home Medications: Home Medications Abacavir/Dolutegravir/Lamivudi [Triumeq Tablet] 1 tab PO DAILY 07/18/17 [ History Confirmed 07/18/17] Meloxicam(NF) [Mobic(NF)] 7.5 mg PO DAILY PRN 07/18/17 [History Confirmed ] traMADol TAB* [Ultram*] 50 mg PO Q6HR PRN 07/18/17 [History Confirmed 07/18/17] PMH/Surg Hx/FS Hx/Imm Hx Endocrine/Hematology History: Denies: Hx Anticoagulant Therapy, Hx Blood Disorders, Hx Diabetes, Hx Thyroid Disease Cardiovascular History: Denies: Hx Hypertension, Hx Pacemaker/ICD Respiratory History: Reports: Hx Asthma, Hx Chronic Obstructive Pulmonary Disease (COPD) GI History: Denies: Hx Ulcer History: Denies: Hx Dialysis, Hx Kidney Stones, Hx Renal Disease Musculoskeletal History: Reports: Hx Back Problems - DDD lumbar spine Denies: Hx Osteoporosis Sensory History: Denies: Hx Hearing Aid Psychiatric History: Reports: Hx Anxiety, Hx Bipolar Disorder Denies: Hx Panic Disorder - Surgical History Surgery Procedure, Year, and Place: C SPINE SURGERY, TUBAL LIGATION; HYSTERECTOMY, C SECTION, RT KNEE SCOPE X2, C5-C6 FUSION WITH FLEX PLATE-; right knee ACL repair 2004. BILATERAL WRIST CARPAL TUNNEL Infectious Disease History: No Infectious Disease History: Reports: Hx Human Immunodeficiency Virus (HIV) Denies: Hx Clostridium Difficile, Hx Hepatitis, Hx of Known/Suspected MRSA, Hx Shingles, Hx Tuberculosis, Hx Known/Suspected VRE, Hx Known/Suspected VRSA, History Other Infectious Disease, Traveled Outside the [place] in Last 30 Days - Family History Known Family History: Positive: Cardiac Disease, Hypertension, Diabetes - Social History Alcohol Use: Occasionally Alcohol Amount: One weekly Hx Substance Use: No Substance Use Type: Reports: None Substance Use Comment - Amount & Last Used: Hydrocodone Hx Tobacco Use: Yes Smoking Status (MU): Current Every Day Smoker Type: Cigarettes Amount Used/How Often: 1/2 ppd Review of Systems Negative: Chest Pain Negative: Shortness Of Breath Positive: Myalgia - back pain All Other Systems Reviewed And Are Negative: Yes Physical Exam Triage Information Reviewed: Yes Vital Signs On Initial Exam: Initial Vitals Temp Pulse Resp BP Pulse Ox 98.1 F 79 16 143/99 99 07/18/17 20:41 07/18/17 20:41 07/18/17 20:41 07/18/17 20:41 07/18/17 20:41 Vital Signs Reviewed: Yes Appearance: Positive: Well-Appearing Skin: Positive: Warm, Dry Head/Face: Positive: Normal Head/Face Inspection Eyes: Positive: Normal, Conjunctiva Clear ENT: Positive: Pharynx normal Respiratory/Lung Sounds: Positive: Clear to Auscultation, Breath Sounds Present Cardiovascular: Positive: Normal, RRR Musculoskeletal: Positive: Strength/ROM Intact - back with pain, Other - Tenderness and lower back, good pulses. good Strength lower extremities, sensation grossly intact Neurological: Positive: Reflexes Intact - patella Psychiatric: Positive: Normal Diagnostics - Vital Signs Vital Signs Temp Pulse Resp BP Pulse Ox 07/18/17 22:13 16 07/18/17 20:41 98.1 F 79 16 143/99 99 - Laboratory Lab Statement: Any lab studies that have been ordered have been reviewed, and results considered in the medical decision making process. Back Pain Course/Dx - Course Course Of Treatment: 47-year-old female presents with back pain past 2 days. She states that increased after she had steroid injection by pain clinic. She states she has history of back pain. This is similar location but is more intense. She is currently taking mobic. She denies any weakness. She states pain isn't related to left leg. She admits to tingling of her left leg. She denies any saddle anesthesia. She denies any fevers. She denies any loss of bowel or bladder. No recent injury. No UTI symptoms. 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 She took tramadol with minimal relief. On exam tenderness lower back. Neurovascular intact. Gave dose of morphine and Robaxin. Will prescribe robaxin for home. Patient understands agrees with plan. - Diagnoses Differential Diagnosis/HQI/PQRI: Positive: Herniated Disc, Strain, Sprain Provider Diagnoses: Back pain Discharge - Sign-Out/Discharge Documenting (check all that apply): Discharge/Admit/Transfer - Discharge Plan Condition: Good Disposition: HOME Patient Education Materials: Back Pain (ED) Referrals: Adebayo Arndt MD [Primary Care Provider] - Additional Instructions: Follow up with pain clinic Take muscle relaxers three times a day Use ibuprofen or Tylenol for pain every 6 hours ice/heat area, move as much as possible Return to ED if develop any new or worsening symptoms - Billing Disposition and Condition Condition: GOOD Disposition: HOME
[2017-07-18 23:19] VITALS: BP 140/71
== END 2017-07-18 23:22 | disposition home or self-care (01) ==
LOC: ED 20:27
DX: M54.9 Dorsalgia, unspecified (principal); F17.210 Nicotine dependence, cigarettes, uncomplicated; Z88.8 Allergy status to other drugs, medicaments and biological substances
CPT/HCPCS: 96372; 96374; 99282; A9270-GY; J1885; J2270

== ENCOUNTER 2018-01-24 06:47 | Day surgery (SDC) | payer MEDICARE, MEDICAID ==
[~2018-01-24 06:47] MED LIST changes: +Buffered Lidocaine 0.9% SYRIN* 5 ML/SYR SYRINGE INTRADERM ONE; -Clindamycin CAP* 150 MG PO ONE; -Ibuprofen TAB* 600 MG PO ONE
[2018-01-24] MEDS ORDERED: ceFOXitin 2 GM IVPREMIX* 2 GM/50 ML BAG ONE (07:46)
[2018-01-24] MEDS ORDERED: Midazolam* 1 MG/ML 2 ML VIAL (2 MG) ONE (08:07)
[2018-01-24] MEDS ORDERED: fentaNYL* 50 MCG/ML 2 ML VIAL (100 MCG VIAL) ONE (08:07)
[2018-01-24] MEDS ORDERED: Ketorolac INJ* 30 MG/ML 1 ML VIAL ONE ×2 (08:23→10:13)
[2018-01-24] MEDS ORDERED: Bupivacaine 0.5% SDV PF* 30ML VIAL ONE (08:51)
[2018-01-24] MEDS ORDERED: Succinylcholine* 20 MG/ML 10 ML VIAL ONE (09:16)
[2018-01-24] MEDS ORDERED: Ondansetron INJ* 2 MG/ML VIAL ONE (09:16)
[2018-01-24] MEDS ORDERED: Propofol* 10 MG/ML 20 ML BTL IV PUSH ONE (09:16)
[2018-01-24] MEDS ORDERED: Dexamethasone IV* 4 MG/ML 1 ML (4 MG) ONE (09:16)
[2018-01-24] MEDS ORDERED: Lidocaine 2% PF * 5 ML VIAL ONE (09:17)
[2018-01-24] MEDS ORDERED: EPHEDrine (Pressors)* 50 MG/ML VIAL ONE (09:22)
[2018-01-24] MEDS ORDERED: Cisatracurium* 2 MG/ML MDV 5 ML ONE (09:43)
[2018-01-24] MEDS ORDERED: Naloxone* 0.4 MG/ML 1 ML VIAL IV PRN (10:18)
[2018-01-24] MEDS ORDERED: Acetaminophen TAB* 325 MG PO PRN (10:18)
[2018-01-24] MEDS ORDERED: fentaNYL* 50 MCG/ML 2 ML VIAL (100 MCG VIAL) IV PRN (10:18)
[2018-01-24] MEDS ORDERED: oxyCODONE/Acetamin 5/325 MG* TAB PO PRN (10:18)
[2018-01-24] MEDS ORDERED: HYDROmorphone INJ1* 1 MG/ML SYRINGE IV PRN (10:18)
[2018-01-24] MEDS ORDERED: oxyCODONE/Acetamin 5/325 MG* TAB ONE (11:08)
[2018-01-24 11:35] VITALS: BP 118/92
--- NOTE | 2018-01-31 14:15 | OP ---
OPERATIVE REPORT: DATE OF OPERATION: 01/24/18 DATE OF : 74 SURGEON: Aashish Matamoros MD TURBINE INSPECTOR: Beth Rockwell MD ANESTHESIA: General anesthetic with endotracheal intubation. PRE-OP DIAGNOSIS: Left ovarian cystic mass, pelvic pain and endometriosis. POST-OP DIAGNOSIS: Left ovarian cystic mass, pelvic pain and endometriosis and pelvic adhesions. OPERATIVE PROCEDURE: Laparoscopic left salpingo-oophorectomy with lysis of adhesions. ESTIMATED BLOOD LOSS: None. SPECIMENS SENT TO PATHOLOGY: Left tube and ovary. FLUIDS: She received 1200 cc of IV crystalloid fluid. URINE OUTPUT: 300 cc of clear urine. FINDINGS: Laparoscopically, the patient was noted to have the omentum that was adherent to the anter ior abdominal wall in the midline from the mid abdomen to just above the uterus. The left ovary and tube was densely adherent to the left pelvic side wall and the omentum was also adherent to the bladd er. There were also adhesions from the bowel to the right pelvic abdominal left wall, right wall and to the liver edge. DESCRIPTION OF PROCEDURE: The patient was taken to the operating room where she was identified. She was placed on the operating table where a general anesthetic with endotracheal intubation was obtain ed without difficulty. She was then placed in the dorsal lithotomy position, prepped and draped in n ormal sterile fashion. Attention was then brought onto the patient's perineum where the bladder was c atheterized with a Esquivel catheter and drained of clear urine. Into the vagina, a sponge stick was in troduced and left in situ. Attention was then brought onto the patient's abdomen where a 1-cm infrau mbilical skin incision was made with a knife and carried through to the underlying layer of fascia. The fascia was then nicked in the midline, extended laterally with a Chanell clamp until entry into the patient's abdomen was confirmed through the peritoneum. The fascia was then sutured with 0 Polysorb sutures superiorly and inferiorly at the opening and then through this incision, we introduced a 5-m m blunt trocar. The balloon in the trocar was insufflated with air. The patient's abdomen was then inflated with CO2 gas. A laparoscope was introduced through the umbilical trocar. The patient was p laced in Trendelenburg position and survey of the patient's abdomen and pelvis revealed findings as n oted above. At this point, 2 other trocars were introduced at the right and left upper quadrant of t he abdomen under direct visualization. I then proceeded to remove the adhesions from the omentum to the anterior abdominal wall with a LigaSure device using cautery and sharp dissection. Once the omen clay was freed from the anterior abdominal wall, I then proceeded to remove the omentum to bladder adh esions, again with a LigaSure device using cautery and sharp dissection. The left ovary and tube wer e noted to be densely adherent to the left pelvic sidewall. I then proceeded with both blunt dissect ion using a blunt grasper and with the LigaSure device, was able to separate the left tube and ovary from the pelvic sidewall. A small window was made just next to the fallopian tube, and I was able to open the anterior leaf of the peritoneum lateral to the fallopian tube. This opening was followed in feriorly and I was then able to create a retroperitoneal approach to remove the ovary and left tube. The ureter was then identified, once this window into the retroperitoneal space was opened and was i dentified from its into the pelvis over the pelvic brim and then down to the uterosacral ligam ent on the left side. The infundibulopelvic ligament on the left side was identified, it was grasped with a LigaSure. It was then coagulated in triplicate and cut with a LigaSure and once this then fr eed up the fallopian tube and the ovary, I then proceeded to with cautery and sharp dissection to remove the tube and ovary from this attachment to the pelvic sidewall and peritoneum. The ovary and the left tube were removed intact. They were then placed in an Endobag and removed through the u mbilical trocar and sent to Pathology. The umbilical trocar was then reintroduced. We then proceede d to irrigate the patient's abdomen. The irrigation fluid was suctioned. We took a second look at t he patient's surgical site and there was good hemostasis, there was no bleeding. At this point, we t judy removed all the instruments from the patient's abdomen. The gas was also removed from the patien t's abdomen. The fascia was closed using 0-Polysorb suture in running fashion and all the skin incis ions were closed using 4-0 Monocryl subcuticular stitch. The sponge stick from the vagina was remove d, as well as Esquivel catheter. Sponge, lap and needle counts were correct x2. She was then transferr ed to recovery room in stable condition. [id number]/CPS #: [id number]
== END 2018-01-24 11:58 | disposition home or self-care (01) ==
LOC: OR 06:47
PROVIDERS: ATTEND Obstetrics & Gynecology
DX: N83.12 Corpus luteum cyst of left ovary (principal); F17.210 Nicotine dependence, cigarettes, uncomplicated; J45.909 Unspecified asthma, uncomplicated; N94.12 Deep dyspareunia; B20 Human immunodeficiency virus [HIV] disease
CPT/HCPCS: 88305; A9270-GY; J0330; J0694; J1100; J1885; J2250; J2405; J2704; J3010

== ENCOUNTER 2018-02-14 16:50 | Emergency (ER) | payer MEDICARE, MEDICAID ==
[2018-02-14 19:06] LABS: ABS Basophils 0 10^3/ul (0-0.2); ABS Eosinophils 0.3 10^3/ul (0-0.6); ABS Lymphocytes 1.4 10^3/ul (1.0-4.8); ABS Monocytes 0.5 10^3/ul (0-0.8); ABS Neutrophils 6.7 10^3/ul (1.5-7.7); ABS Nucleated RBC 0 10^3/ul; Eosinophil % 3.1 %; Hematocrit 48 % (35-47); Hemoglobin 16.3 g/dl (12.0-16.0); Lymphocyte % 16.2 %; Mean Corpuscular HGB Conc 34 g/dl (31-36); Mean Corpuscular Hemoglobin 32 pg (27-31); Mean Corpuscular Volume 93 fL (80-97); Mean Platelet Volume 8.7 fL (7.4-10.4); Nucleated Red Blood Cells % 0.1; Platelet Count 203 10^3/ul (150-450); Red Blood Count 5.18 10^6/ul (4.00-5.40); Red Cell Distribution Width 15 % (10.5-15); White Blood Count 8.9 10^3/ul (3.5-10.8)
[2018-02-14 19:25] LABS: EGFR Non-African American 69.5 (>60)
[2018-02-14 19:32] VITALS: BP 163/104
== END 2018-02-14 19:52 | disposition left against medical advice (07) ==
LOC: ED 16:50
DX: R10.9 Unspecified abdominal pain (principal); Z53.21 Procedure and treatment not carried out due to patient leaving prior to being seen by health care provider
CPT/HCPCS: 36415; 74019; 80053; 83690; 84702; 85025; 86140; 99281

== ENCOUNTER → 2018-03-02 12:47 | Emergency (ER) | payer MEDICARE, MEDICAID ==
[~2018-03-02 12:47] MED LIST changes: +Albuterol HFA INHALER* 8 gm MDI INH ONE; -Buffered Lidocaine 0.9% SYRIN* 5 ML/SYR SYRINGE INTRADERM ONE; +DOXYcycline CAP(*) 100 MG PO ONE; +predniSONE TAB* 20 MG PO ONE
[2018-03-02 17:11] VITALS: BP 131/84
--- NOTE | 2018-03-02 17:55 | ED ---
Influenza-Like Illness - HPI Summary HPI Summary: A 47 y/o female presents to the ED c/o flu-like symptoms. According to the patient, she has been experiencing a nasty cough that makes her vomit. She stated that this has been ongoing since the day before . Additional symptoms include SOB, rhinorrhea, sinus congestion, but denies any body aches, fevers, or pain and swelling in legs. She stated that the cough produces green flem and her rhinorrhea is clear. PMHx of asthma. PCP is Dr. Arndt. - History of Current Complaint Chief Complaint: EDFluSymptoms Time Seen by Provider: 03/02/18 15:15 Hx Obtained From: Patient Onset/Duration: Sudden Onset, Lasting Weeks, Still Present Associated Signs & Symptoms: Cough, Nasal Congestion - Allergy/Home Medications Allergies/Adverse Reactions: Allergies Allergy/AdvReac Type Severity Reaction Status Date / Time bupropion [From Wellbutrin] Allergy Severe Hives Verified 01/24/18 07:13 PMH/Surg Hx/FS Hx/Imm Hx Endocrine/Hematology History: Denies: Hx Anticoagulant Therapy, Hx Diabetes, Hx Thyroid Disease Cardiovascular History: Denies: Hx Hypertension, Hx Pacemaker/ICD Respiratory History: Reports: Hx Asthma - seasonal- more in winter, Hx Chronic Obstructive Pulmonary Disease (COPD) GI History: Denies: Hx Ulcer History: Denies: Hx Dialysis, Hx Kidney Stones, Hx Renal Disease Musculoskeletal History: Reports: Hx Arthritis - DJD, Hx Back Problems - DDD lumbar spine Denies: Hx Osteoporosis Sensory History: Reports: Hx Contacts or Glasses - read Denies: Hx Legally Blind, Hx Deafness, Hx Hearing Aid Opthamlomology History: Reports: Hx Contacts or Glasses - read Denies: Hx Legally Blind Neurological History: Reports: Hx Headaches - does get occassionally r/t pinched nerve in neck Psychiatric History: Reports: Hx Anxiety, Hx Bipolar Disorder Denies: Hx Panic Disorder - Cancer History Hx Chemotherapy: No - Surgical History Surgery Procedure, Year, and Place: C SPINE SURGERY, TUBAL LIGATION; HYSTERECTOMY, C SECTION, RT KNEE SCOPE X2, C5-C6 FUSION WITH FLEX PLATE-; right knee ACL repair 2003. BILATERAL WRIST CARPAL TUNNEL. appendectomy when 16 years old Hx Anesthesia Reactions: No Infectious Disease History: Unable to Obtain/Confirm Infectious Disease History: Reports: Hx Human Immunodeficiency Virus (HIV) Denies: Hx Clostridium Difficile, Hx Hepatitis, Hx of Known/Suspected MRSA, Hx Shingles, Hx Tuberculosis, Hx Known/Suspected VRE, Hx Known/Suspected VRSA, History Other Infectious Disease, Traveled Outside the [place] in Last 30 Days - Family History Known Family History: Positive: Cardiac Disease, Hypertension, Diabetes - Social History Alcohol Use: Occasionally Alcohol Amount: One weekly Hx Substance Use: No Substance Use Type: Reports: None Substance Use Comment - Amount & Last Used: Hydrocodone Hx Tobacco Use: Yes Smoking Status (MU): Current Every Day Smoker Type: Cigarettes Amount Used/How Often: 1/2 ppd, off and on since 18 years old Review of Systems Negative: Fever, Chills Negative: Erythema Positive: Other - POSITIIVE: SINUS CONGESTION. Negative: Sore Throat Negative: Chest Pain Negative: Shortness Of Breath, Cough Negative: Abdominal Pain, Vomiting, Nausea Negative: dysuria, hematuria Positive: Other - NEGATIVE: LEG PAIN. Negative: Myalgia, Edema Negative: Rash Neurological: Other - NEGATIVE: DIZZINESS All Other Systems Reviewed And Are Negative: Yes Physical Exam - Summary Physical Exam Summary: Constitutional: Well-developed, Well-nourished, Alert. (-) Distressed Skin: Warm, Dry HENT: Normocephalic; Atraumatic Eyes: Conjunctiva normal Neck: Musculoskeletal ROM normal neck. (-) JVD, (-) Stridor, (-) Tracheal deviation Cardio: Rhythm regular, rate normal, Heart sounds normal; Intact distal pulses; The pedal pulses are 2+ and symmetric. Radial pulses are 2+ and symmetric. (-) Murmur Pulmonary/Chest wall: Left sided wheezes Abd: Soft, (-) epigastric tenderness, (-) Distension, (-) Guarding, (-) Rebound Musculoskeletal: (-) Edema Lymph: (-) Cervical adenopathy Neuro: Alert, Oriented x3 Psych: Mood and affect Normal Triage Information Reviewed: Yes Vital Signs On Initial Exam: Initial Vitals Temp Pulse Resp BP Pulse Ox 98.6 F 90 20 122/86 98 03/02/18 13:23 03/02/18 13:23 03/02/18 13:23 03/02/18 13:23 03/02/18 13:23 Vital Signs Reviewed: Yes Diagnostics - Vital Signs Vital Signs Temp Pulse Resp BP Pulse Ox 03/02/18 17:05 131/84 03/02/18 16:05 77 122/87 98 03/02/18 15:36 78 123/84 98 03/02/18 13:23 98.6 F 90 20 122/86 98 - Laboratory Lab Results: Lab Results 03/02/18 Range/Units 15:38 Influenza A (Rapid) Negative (Negative) Influenza B (Rapid) Negative (Negative) Lab Statement: Any lab studies that have been ordered have been reviewed, and results considered in the medical decision making process. - Radiology CXR Radiology Interpretation Completed By: Radiologist Summary of Radiographic Findings: NO EVIDENCE FOR ACTIVE CARDIOPULMONARY DISEASE. ED PHYSICIAN REVIEWED THIS RADIOLOGY REPORT. Re-Evaluation - Re-Evaluation First Eval Re-Evaluation Time: 17:44 Change: Unchanged Comment: Patient is upset that she has been here so nena and doesn't want the nebulizer treatment. She is willing to do the inhaler. Flu Symptom Course/Dx - Course Course Of Treatment: A 47 y/o female presents to the ED c/o flu-like symptoms. According to the patient, she has been experiencing a nasty cough that makes her vomit. She stated that this has been ongoing since the day before . Additional symptoms include SOB, rhinorrhea, sinus congestion, but denies any body aches, fevers, or pain and swelling in legs. She stated that the cough produces green flem and her rhinorrhea is clear. Physical examination findings significant for left sided wheezes. A CXR revealed no evidence for active cardiopulmonary disease. No laboratory screens were done, however, an influenza screen was negative. In the ED course, the patient received Ventolin, Vibramycin, and Deltasone. During re-evaluation, patient is upset that she has been here so nena and doesn't want the nebulizer treatment. She is willing to do the inhaler. ER MD advised the patient that she has active wheezing and able to get treatment. Once treatment is done, we will be able to evaluate the patient to make sure her symptoms were resolved. Patient doesnt want the treatment and refused any kind of management. Patient insisted leaving AMA even after being advised the precautions and consequences of leaving AMA. Patient was even aware that she will not be able to get a Medicaid cab home since she is leaving AMA, the ED MD offered her further treatment and management in order to get Medicaid cab home, however, she wanted to leave [place] and would walk home. Patient will be discharged with bronchitis. She will be sent home prescriptions for Ventolin, Doxycycline, Nebulizer, and Deltasone. She is to take medications as prescribed. Patient is to follow up with [facility] and primary care provider in 2-3 days. Patient is to return to ED for any new or worsening symptoms. Patient is agreeable with this plan. - Diagnoses Provider Diagnoses: Bronchitis Discharge - Sign-Out/Discharge Documenting (check all that apply): Patient Departure - DISCHARGE - AMA - Discharge Plan Condition: Stable Disposition: AGAINST MEDICAL ADVICE Prescriptions: Albuterol 2.5MG/3ML (0.083%)* [Ventolin 2.5 MG/3 ML NEB.ANNA*] 2.5 mg INH Q4H PRN #60 neb.anna PRN Reason: Sob/Wheezing Albuterol HFA INHALER* [Ventolin HFA Inhaler*] 1 - 2 puff INH Q4H PRN #1 mdi PRN Reason: Sob/Wheezing DOXYcycline CAP(*) [DOXYcycline 100MG CAP(*)] 100 mg PO BID #10 cap Nebulizer [Compact Ultrasonic Nebulizer] 1 each MC Q4H PRN #1 each PRN Reason: Shortness Of Breath predniSONE TAB* [Deltasone TAB*] 50 mg PO DAILY #4 tab Referrals: Adebayo Arndt MD [Primary Care Provider] - 2 Days [facility] [Outside] - 2 Days Additional Instructions: FOLLOW UP WITH PRIMARY CARE PROVIDER IN 2-3 DAYS. FOLLOW UP WITH [facility] IN 2-3 DAYS. TAKE MEDICATIONS PRESCRIBED. RETURN TO ED FOR ANY NEW OR WORSENING SYMPTOMS. - Attestation Statements Document Initiated by Scribe: Yes Documenting Scribe: Rudolph Ellison Provider For Whom Scribe is Documenting (Include Credential): Tod Lan MD Scribe Attestation: Rudolph Brandon, scribed for Tod Lan MD on 03/02/18 at 1758. Status of Scribe Document: Ready
== END | disposition left against medical advice (07) ==
LOC: ED 12:47
DX: J40 Bronchitis, not specified as acute or chronic (principal); R05 Cough; R09.81 Nasal congestion; F17.210 Nicotine dependence, cigarettes, uncomplicated
CPT/HCPCS: 71046; 99283; A9270-GY; J7512

== ENCOUNTER 2018-10-21 21:23 | Emergency (ER) | payer MEDICARE, MEDICAID ==
--- OUTSIDE RECORDS SUMMARY | 2018-10-21 21:48 | XMS REPORT | Continuity of Care Document ---
:1970 External Reference #:[id number] Author Name Marian Spring PA (transmitted by agent of provider Kareem Smith) Address [address], [address] [place] [address] Problems Active Problems Provider Date Human immunodeficiency virus infection Marian Spring PA Onset: 03/08/2016 Hypothyroidism Marian Spring PA Onset: 03/08/2016 Leukopenia Marian Spring PA Onset: 03/08/2016 Acquired thrombocytopenia Marian Spring PA Onset: 03/08/2016 Displacement of lumbar intervertebral disc Marian Spring PA Onset: 2016 without myelopathy Spinal stenosis of lumbar region Marian Spring PA Onset: 06/29/2016 Cyst of ovary Marian Spring PA Onset: 02/25/2017 Osteoporosis Marian Spring PA Onset: 04/22/2017 Degeneration of cervical intervertebral disc Marian Spring PA Onset: 2017 Tobacco user Marian Spring PA Onset: 07/05/2018 Social History Type Date Description Comments Sex Unknown Tobacco Use Reviewed: 10/10/17 current cigarette smoker up to 1/2ppd ETOH Use 12/30/2015 Denies alcohol use Recreational Drug Use 12/30/2015 Denies Drug Use Tobacco Use Reviewed: 10/10/17 Patient is a current smoker, smokes every day Smoking Status Reviewed: 09/18/18 Patient is a current smoker, smokes every day Exercise Type/Frequency Exercises rarely Sun Exposure Uses sunscreen Seat Belt/Car Seat Seat Belt Use - Yes Guns in Home No Smoke Alarms Yes smoke alarm Allergies, Adverse Reactions, Alerts Active Allergies Reaction Severity Comments Date Wellbutrin hives 12/30/2015 Medications Active Medications SIG Qnty Indications Ordering Date Provider Methylprednisolone use as directed 1units M51.16 Silcocristel, 09/18/2018 4mg TBPK on package Evelyn Fiore Albuterol Sulfate HFA 2 puffs q4-6 8.500gm Sopchak, 07/19/2018 hours as needed Robert Serna 108(90Base) mcg/Act Aerosol Vitamin D 1 cap by mouth 12caps Hair, 07/06/2018 (Ergocalciferol) weekly for 12 Evelyn Fiore 03899Stqu weeks Capsules Nicoderm CQ 1 patch 30units F17.210 Silcocristel, 07/05/2018 21mg/24HR Patches topically daily Evelyn Fiore 24HR as needed Tramadol HCL prn Unknown 04/19/2017 50mg Tablets Ibuprofen 1 tab by mouth 90tabs M51.26 Marian Spring, 06/29/2016 800mg Tablets three times a PA day as needed Back Support S/M lumbar corset 1units M48.06 Marian Spring, 06/29/2016 Misc brace PA M51.26 Triumeq 1 po daily Unknown Meloxicam 1 tab by mouth up to twice Unknown 7.5mg Tablets daily as needed for back pain Melatonin 1 every night at bedtime Unknown 10mg Capsules History Medications Ventolin HFA 2 puffs q4-6 18gm Adebayo Arndt, 07/19/2018 - hours as needed M.D. 07/19/2018 108(90Base) mcg/Act Aerosol Prednisone 2 tab by mouth 10tabs J20.9 Adebayo Arndt, 07/05/2018 - 20mg Tablets daily x3 days, M.D. 09/13/2018 then 1 tab by mouth daily x4 days, then stop Immunizations Description No Information Available Vital Signs Date Vital Result Comment 09/18/2018 4:38pm BP Systolic 142 mmHg BP Diastolic 82 mmHg Weight 166.00 lb 09/14/2018 2:06pm BP Systolic 130 mmHg BP Diastolic 78 mmHg Weight 166.00 lb Results Test Date Facility Test Result H/L Range Note Iron & Iron Binding 07/05/2018 [facility] Iron 81 g/dL Normal 50- 212 Capacity [phone] Unsaturated Iron Binding < 404 g/dL Total Iron Binding Capacity 419 g/dL Normal 250-450 Transferrin 299 mg/dL Normal 203-362 % Iron Saturation 19 % Normal 15-55 Laboratory test 07/05/2018 [facility] Vitamin B12 342 pg/mL Normal 180-914 1 finding [phone] Folic Acid (Folate) 11.63 ng/mL >3.99 CBC Auto Diff 07/05/2018 [facility] White Blood 5.6 10^3/uL Normal 3.5-10.8 [phone] Count Red Blood Count 4.99 10^6/uL High 3.70-4.87 Hemoglobin 15.8 g/dL Normal 12.0-16.0 Hematocrit 46 % Normal 35-47 Mean Corpuscular Volume 93 fL Normal 80-97 Mean Corpuscular Hemoglobin 32 pg High 27-31 Mean Corpuscular HGB Conc 34 g/dL Normal 31-36 Red Cell Distribution Width 15 % Normal 10.5-15 Platelet Count 208 10^3/uL Normal 150-450 Mean Platelet Volume 9.7 fL Normal 7.4-10.4 Abs Neutrophils 3.6 10^3/uL Normal 1.5-7.7 Abs Lymphocytes 1.3 10^3/uL Normal 1.0-4.8 Abs Monocytes 0.4 10^3/uL Normal 0-0.8 Abs Eosinophils 0.3 10^3/uL Normal 0-0.6 Abs Basophils 0.0 10^3/uL Normal 0-0.2 Abs Nucleated RBC 0.0 10^3/uL Granulocyte % 64.6 % Lymphocyte % 22.6 % Monocyte % 6.7 % Eosinophil % 5.5 % Basophil % 0.6 % Nucleated Red Blood Cells % 0.0 Comp Metabolic Panel 07/05/2018 [facility] Sodium 141 mmol/L Normal 135-145 [phone] Potassium 4.0 mmol/L Normal 3.5-5.0 Chloride 108 mmol/L Normal 101-111 Co2 Carbon Dioxide 28 mmol/L Normal 22-32 Anion Gap 5 mmol/L Normal 2-11 Glucose 112 mg/dL High 70-100 Blood Urea Nitrogen 15 mg/dL Normal 6-24 Creatinine 0.93 mg/dL Normal 0.51-0.95 BUN/Creatinine Ratio 16.1 Normal 8-20 Calcium 10.2 mg/dL Normal 8.6-10.3 Total Protein 7.0 g/dL Normal 6.4-8.9 Albumin 4.4 g/dL Normal 3.2-5.2 Globulin 2.6 g/dL Normal 2-4 Albumin/Globulin Ratio 1.7 Normal 1-3 Total Bilirubin 0.30 mg/dL Normal 0.2-1.0 Alkaline Phosphatase 71 U/L Normal 34-104 Alt 11 U/L Normal 7-52 Ast 14 U/L Normal 13-39 Egfr Non- 64.9 >60 Egfr 78.5 >60 2 Laboratory test 07/05/2018 [facility] TSH (Thyroid 1.56 mcIU/mL Normal 0.34-5.60 finding [phone] Stim Horm) Hemoglobin A1c (Glyco HGB) 5.6 % Normal 4.0-5.6 3 Vitamin D Total 25(Oh) 12.9 ng/mL Low 20-50 4 1 Normal Range 180 to 914 Indeterminate Range 145 to 180 Deficient Range <145 2 Because ethnic data is not always readily available, this report includes an eGFR for both -Americans and non- Americans. The National Kidney Disease Education Program (NKDEP) does not endorse the use of the MDRD equation for patients that are not between the ages of 18 and 70, are , have extremes of body size, muscle mass, or nutritional status, or are non- or non-. According to the National Kidney Foundation, irrespective of diagnosis, the stage of the disease is based on the level of kidney function: Stage Description GFR(mL/min/1.73 m(2)) 1 Kidney damage with normal or decreased GFR 90 2 Kidney damage with mild decrease in GFR 60-89 3 Moderate decrease in GFR 30-59 4 Severe decrease in GFR 15-29 5 Kidney failure <15 (or dialysis) 3 Therapeutic target for the treatment of diabetes mellitus patients is <7% HBA1C, and in selective patients <6.0%. Please refer to [place] Diabetes Association diabetic care guidelines for further information. 4 Total 25-Hydroxyvitamin D2 and D3 (25-OH-VitD) <10 ng/mL (severe deficiency) 10-19 ng/mL (mild to moderate deficiency) 20-50 ng/mL (optimum levels) 51-80 ng/mL (increased risk of hypercalciuria) >80 ng/mL (toxicity possible) Procedures Date Code Description Status 03/06/2016 [id number] Mammogram Completed Medical Devices Description No Information Available Encounters Type Date Location Provider Dx Diagnosis Office Visit 09/18/2018 Main Office Marian Spring PA M51.16 Intervertebral disc 4:30p disorders w radiculopathy, lumbar region M54.5 Low back pain R20.0 Anesthesia of skin B20 Human immunodeficiency virus [HIV] disease F17.210 Nicotine dependence, cigarettes, uncomplicated F43.0 Acute stress reaction Office Visit 09/14/2018 2:00p Main Office Ro Hooks, P.A. R53.83 Other fatigue M54.5 Low back pain R20.0 Anesthesia of skin G57.13 Meralgia paresthetica, bilateral lower limbs Office Visit 07/05/2018 2:15p Main Office Marian Spring PA R53.83 Other fatigue F17.210 Nicotine dependence, cigarettes, uncomplicated B20 Human immunodeficiency virus [HIV] disease M51.26 Other intervertebral disc displacement, lumbar region E03.9 Hypothyroidism, unspecified J20.9 Acute bronchitis, unspecified Assessments Date Code Description Provider 09/18/2018 M51.16 Intervertebral disc disorders with Marian Spring PA radiculopathy, lumbar reg 09/18/2018 M54.5 Low back pain Marian Spring PA 09/18/2018 R20.0 Anesthesia of skin Marian Spring PA 09/18/2018 B20 Human immunodeficiency virus [HIV] disease Marian Spring PA 09/18/2018 F17.210 Nicotine dependence, cigarettes, uncomplicated Marian Spring PA 09/18/2018 F43.0 Acute stress reaction Marian Spring PA 09/14/2018 R53.83 Other fatigue Ro Hooks, P.A. 09/14/2018 M54.5 Low back pain Ro Hooks, P.A. 09/14/2018 R20.0 Anesthesia of skin Ro Hooks, P.A. 09/14/2018 G57.13 Meralgia paresthetica, bilateral lower limbs Ro Hooks , P.A. 07/05/2018 R53.83 Other fatigue Marian Spring PA 07/05/2018 F17.210 Nicotine dependence, cigarettes, uncomplicated Marian Spring PA 07/05/2018 B20 Human immunodeficiency virus [HIV] disease Marian Spring PA 07/05/2018 M51.26 Other intervertebral disc displacement, lumbar Marian Spring PA region 07/05/2018 E03.9 Hypothyroidism, unspecified Marian Spring PA 07/05/2018 J20.9 Acute bronchitis, unspecified Marian Spring PA Plan of Treatment Future Appointment(s):11/13/2018 1:50 pm - Marian Spring PA at Main [id number] - Marian Spring PAK57.92 Diverticulitis of intestine, part unspecified , without perfoComments:Episode (first) of diverticulitis last week. Pt has a few more days of cipro/flagyl. Sx have completely resolved. She was instructed to finish full course of Abx, push fluids, modify diet (discussed diverticulosis diet). Call if sx return.N39.0 Urinary tract infection, site not specifiedComments:UTI last week, put on cipro at ER. Repeat UA today was negative. Pt to finish last few days of ciproand continue pushing fluids. Discussed that if UTIs continue to be frequent, we could consider dailyprophylactic Abx.N83.202 Unspecified ovarian cyst, left sideComments: Enlarged L ovary w 3.5cm cyst found on CT at ER. Pt seeing Dr. Matamoros - will be having left oophorectomy next week. Discussed that diverticulitis and UTI have resolved so will not interfere w surgicalplan. Will send note to Dr. Matamoros per patient request.B20 Human immunodeficiency virus [HIV] diseaseComments:Continue care at [facility]. Functional Status Description No Information Available Mental Status Description No Information Available Referrals Refer to Dr Reason for Referral Status Appt Date [facility] Nerve conduction study of the Sent lower extremities Testing Only [address] [facility] [address], [place] [address] [phone]
--- OUTSIDE RECORDS SUMMARY | 2018-10-21 21:48 | XMS REPORT | Continuity of Care Document ---
:1970 External Reference #:[id number] Author Name Marian Spring PA (transmitted by agent of provider Kareem Smith) Address [address] [facility], [address] [place] [address] Problems Active Problems Provider Date Human immunodeficiency [...] 07/06/2018 (Ergocalciferol) weekly for 12 Evelyn Fiore [id number] weeks Capsules Nicoderm CQ 1 patch 30units [...] Range Note Iron & Iron Binding 07/05/2018 [facility] Iron 81 g/dL Normal 50- 212 Capacity [phone] Unsaturated Iron Binding < 404 g/dL Total Iron Binding Capacity 419 g/dL Normal 250-450 Transferrin 299 mg/dL Normal 203-362 % Iron Saturation 19 % Normal 15-55 Laboratory test 07/05/2018 [facility] Vitamin B12 342 pg/mL Normal 180-914 1 finding [phone] Folic Acid (Folate) 11.63 ng/mL >3.99 CBC Auto Diff 07/05/2018 [facility] White Blood 5.6 10^3/uL Normal 3.5-10.8 [phone] Count Red Blood Count 4.99 10^6/uL High [...] Cells % 0.0 Comp Metabolic Panel 07/05/2018 [facility] Sodium 141 mmol/L Normal 135-145 [phone] Potassium 4.0 mmol/L Normal 3.5-5.0 Chloride 108 [...] Egfr 78.5 >60 2 Laboratory test 07/05/2018 [facility] TSH (Thyroid 1.56 mcIU/mL Normal 0.34-5.60 finding [phone] Stim Horm) Hemoglobin A1c (Glyco HGB) 5.6 [...] in selective patients <6.0%. Please refer to [place] Diabetes Association diabetic care guidelines for further information. 4 Total 25-Hydroxyvitamin D2 and D3 (25-OH-VitD) <10 ng/mL (severe deficiency) 10-19 ng/mL (mild to moderate deficiency) 20-50 ng/mL (optimum levels) 51-80 ng/mL (increased risk of hypercalciuria) >80 ng/mL (toxicity possible) Procedures Date Code Description Status 03/06/2016 [id number] Mammogram Completed Medical Devices Description No Information [...] pm - Marian Spring PA at Main [id number] - Marian Spring PAM51.16 Intervertebral disc disorders with radiculopathy, lumbar regNew Medication:Methylprednisolone 4 mg - use as directed on packageComments:Hx DDD w bulging disc and lumbar stenosis. Left numbness may be secondary to back issues. Rx for medrol dose pack. NCS ordered last week, still awaiting appt. Pt will f/u w pain clinic.M54.5 Low back painComments:See #1R20.0 Anesthesia of skinComments:See #1B20 Human immunodeficiency virus [HIV] diseaseComments:Continue care at [facility].F17.210 Nicotine dependence, cigarettes, uncomplicatedComments:Smoking cessation counseling <10 minutes done today. Pt has nicotine patches.F43.0 Acute stress reactionComments:Discussed current stressors. Patient is hopeful to reconnect with her daughter. Monitor for depression. Functional Status Description No Information Available Mental Status Description No Information Available Referrals Refer to Reason for Referral Status Appt Date [facility] Nerve conduction study of the Sent lower extremities Testing Only [address] [place] [address], [address] [place] [id number] [phone]
--- OUTSIDE RECORDS SUMMARY | 2018-10-21 21:48 | XMS REPORT | Continuity of Care Document ---
:1970 External Reference #:[id number] Author Name Marian Spring PA (transmitted by agent of provider Adebayo Arndt) Address [address] [facility], [facility] [address] [place] [address] Problems Active Problems Provider Date Human immunodeficiency [...] 07/06/2018 (Ergocalciferol) weekly for 12 Evelyn Fiore [id number] weeks Capsules Nicoderm CQ 1 patch 30units [...] Iron 81 g/dL Normal 50- 212 Capacity [phone] Unsaturated Iron Binding < 404 g/dL Total Iron Binding Capacity 419 g/dL Normal 250-450 Transferrin 299 mg/dL Normal 203-362 % Iron Saturation 19 % Normal 15-55 Laboratory test 07/05/2018 [facility] Vitamin B12 342 pg/mL Normal 180-914 1 finding [phone] Folic Acid (Folate) 11.63 ng/mL >3.99 CBC Auto Diff 07/05/2018 [facility] White Blood 5.6 10^3/uL Normal 3.5-10.8 [phone] Count Red Blood Count 4.99 10^6/uL High [...] + Hospitals Sodium 141 mmol/L Normal 135-145 [phone] Potassium 4.0 mmol/L Normal 3.5-5.0 Chloride 108 [...] TSH (Thyroid 1.56 mcIU/mL Normal 0.34-5.60 finding [phone] Stim Horm) Hemoglobin A1c (Glyco HGB) 5.6 [...] in selective patients <6.0%. Please refer to [place] [employer] diabetic care guidelines for further information. 4 Total 25-Hydroxyvitamin D2 and D3 (25-OH-VitD) <10 ng/mL (severe deficiency) 10-19 ng/mL (mild to moderate deficiency) 20-50 ng/mL (optimum levels) 51-80 ng/mL (increased risk of hypercalciuria) >80 ng/mL (toxicity possible) Procedures Date Code Description Status 03/06/2016 [id number] Mammogram Completed Medical Devices Description No Information [...] pm - Marian Spring PA at Main Usuxoi7902/2019 - [place], PChinoR53.83 Other fatigueComments:long discuss on importance for developing healthy sleeping areas, routineno caffeine after 12 noonbedroom for sleeping and sex only, set up living room for other activitiesno daytime naps until sleep [id number] Low back painComments:might be contributing to the numbness in legsR20.0 Anesthesia of skinG57.13 Meralgia paresthetica, bilateral lower limbsReferral:[facility], NeurologyFollow up:discussed that her numbness in thighs could be from this, that a lot of sitting can be a contributing factor. Functional Status Description No Information Available Mental Status Description No Information Available Referrals Refer to Reason for Referral Status Appt Date [facility] Nerve conduction study of the Sent 00/ 0000 lower extremities Testing Only [address] [place] [address], [place] [address] [phone]
--- OUTSIDE RECORDS SUMMARY | 2018-10-21 21:48 | XMS REPORT | Continuity of Care Document ---
:1970 External Reference #:[id number] Author Name Evens Zhao (transmitted by agent of provider Kareem Smith) Address [address] [place] [id number] Problems Active Problems Provider Date Human immunodeficiency [...] 07/06/2018 (Ergocalciferol) weekly for 12 Evelyn Fiore [id number] weeks Capsules Nicoderm CQ 1 patch 30units [...] Range Note Iron & Iron Binding 07/05/2018 [facility] Iron 81 g/dL Normal 50- 212 Capacity [phone] Unsaturated Iron Binding < 404 g/dL Total Iron Binding Capacity 419 g/dL Normal 250-450 Transferrin 299 mg/dL Normal 203-362 % Iron Saturation 19 % Normal 15-55 Laboratory test 07/05/2018 [facility] Vitamin B12 342 pg/mL Normal 180-914 1 finding [phone] Folic Acid (Folate) 11.63 ng/mL >3.99 CBC Auto Diff 07/05/2018 [facility] White Blood 5.6 10^3/uL Normal 3.5-10.8 [phone] Count Red Blood Count 4.99 10^6/uL High [...] Cells % 0.0 Comp Metabolic Panel 07/05/2018 [facility] Sodium 141 mmol/L Normal 135-145 [phone] Potassium 4.0 mmol/L Normal 3.5-5.0 Chloride 108 [...] Egfr 78.5 >60 2 Laboratory test 07/05/2018 [facility] TSH (Thyroid 1.56 mcIU/mL Normal 0.34-5.60 finding [phone] Stim Horm) Hemoglobin A1c (Glyco HGB) 5.6 [...] in selective patients <6.0%. Please refer to [place] [employer] diabetic care guidelines for further information. 4 Total 25-Hydroxyvitamin D2 and D3 (25-OH-VitD) <10 ng/mL (severe deficiency) 10-19 ng/mL (mild to moderate deficiency) 20-50 ng/mL (optimum levels) 51-80 ng/mL (increased risk of hypercalciuria) >80 ng/mL (toxicity possible) Procedures Date Code Description Status 03/06/2016 [id number] Mammogram Completed Medical Devices Description No Information [...] pm - Marian Spring PA at Main [id number] - Marian Spring PAK57.92 Diverticulitis of intestine, [...] Dr Reason for Referral Status Appt Date [facility] Nerve conduction study of the Sent lower extremities Testing Only [address] [facility], [place] [address] [phone]
--- NOTE | 2018-10-21 21:51 | ED ---
Dizziness - HPI Summary HPI Summary: The patient is a 48 y/o F presenting to [facility] with a chief complaint of intermittent episodes of dizziness and near syncope toady. She reports that since this morning, she has been having dizzy spells that feel as if the room is spinning. When she would try to stand or ambulation, the symptoms would worsen as she would have a near syncopal episode, but the symptoms are alleviated with rest. She additionally c/o nausea, vomiting, and a diffuse pounding headache. She states that her symptoms may be secondary to not eating well throughout the day, but she has been unable to eat now due to the nausea and vomiting. The pain is currently rated /10 in severity. She notes she was feeling well yesterday without these symptoms. PMHx: asthma, COPD, headaches, neck surgery, anxiety, bipolar disorder, HIV (controlled). FHx: cardiac disease , HTN, DM. Current every day cigarette smoker, no EtOH, no substance use. - History Of Current Complaint Chief Complaint: EDDizziness Stated Complaint: SYNCOPE, VOMITING, Time Seen by Provider: 10/21/18 21:42 Hx Obtained From: Patient Onset/Duration: Still Present, Gradually Timing: Hours Severity Initially: Moderate Severity Currently: Moderate Character: Room Spinning, Dizzy Aggravating Factor(s): Supine To Erect Alleviating Factor(s): Rest Associated Signs And Symptoms: Positive: Nausea, Vomiting, Decreased Oral Intake , Other: - diffuse pounding headache - Allergies/Home Medications Allergies/Adverse Reactions: Allergies Allergy/AdvReac Type Severity Reaction Status Date / Time bupropion [From Wellbutrin] Allergy Severe Hives Verified 10/21/18 21:30 PMH/Surg Hx/FS Hx/Imm Hx Endocrine/Hematology History: Denies: Hx Anticoagulant Therapy, Hx Diabetes, Hx Thyroid Disease Cardiovascular History: Denies: Hx Hypertension, Hx Pacemaker/ICD Respiratory History: Reports: Hx Asthma - seasonal- more in winter, Hx Chronic Obstructive Pulmonary Disease (COPD) GI History: Denies: Hx Ulcer History: Denies: Hx Dialysis, Hx Kidney Stones, Hx Renal Disease Musculoskeletal History: Reports: Hx Arthritis - DJD, Hx Back Problems - DDD lumbar spine Denies: Hx Osteoporosis Sensory History: Reports: Hx Contacts or Glasses - read Denies: Hx Legally Blind, Hx Deafness, Hx Hearing Aid Opthamlomology History: Reports: Hx Contacts or Glasses - read Denies: Hx Legally Blind Neurological History: Reports: Hx Headaches - does get occassionally r/t pinched nerve in neck, Other Neuro Impairments/Disorders - 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 TUBAL LIGATION; HYSTERECTOMY, C SECTION, RT KNEE SCOPE X2,; right knee ACL repair 2003. BILATERAL WRIST CARPAL TUNNEL. appendectomy when 16 years old. Lt OOPHARECTOMY Hx Anesthesia Reactions: No Infectious Disease History: No Infectious Disease History: Reports: Hx Human Immunodeficiency Virus (HIV) Denies: Hx Clostridium Difficile, Hx Hepatitis, Hx of Known/Suspected MRSA, Hx Shingles, Hx Tuberculosis, Hx Known/Suspected VRE, Hx Known/Suspected VRSA, History Other Infectious Disease, Traveled Outside the [place] in Last 30 Days - Family History Known Family History: Positive: Cardiac Disease, Hypertension, Diabetes - Social History Alcohol Use: None Alcohol Amount: 1 drink per week Hx Substance Use: No Substance Use Type: Reports: None Substance Use Comment - Amount & Last Used: Hydrocodone Hx Tobacco Use: Yes Smoking Status (MU): Current Every Day Smoker Type: Cigarettes Amount Used/How Often: 1/2 ppd, off and on since 18 years old Review of Systems Positive: Vomiting, Nausea, Other - decreased oral intake Neurological: Other - spinning dizziness, near syncope with sitting to erect Positive: Headache - pounding diffuse All Other Systems Reviewed And Are Negative: Yes Physical Exam - Summary Physical Exam Summary: Appearance: Well-appearing, Well-nourished, lying in bed comfortably Skin: Warm, dry, no obvious rash Eyes: sclera anicteric, no conjunctival pallor ENT: mucous membranes moist, pharynx appears normal Neck: Supple, nontender Respiratory: Clear to auscultation, no signs of respiratory distress Cardiovascular: Normal S1, S2. No murmurs. Normal distal pulses in tibial and radial bilaterally. Abdomen: Soft, nontender, normal active bowel sounds present Musculoskeletal: Normal, Strength/ROM Intact, Motor function in all 4 extremities is normal and symmetric. There is no rigidity or tremor noted. Neurological: A&Ox3, awake and alert, mentation is normal, speech is fluent and appropriate, Level of consciousness nml. The patient is alert and oriented. Cranial nerves are grossly intact. Gaze is conjugate with slight nystagmus to rigthward gaze. Peripheral vision is intact to confrontation. There are no gross sensory abnormalities to light touch. There is no truncal or fine motor ataxia. On attempting to get her up to assess gait she developed a current vertigo which precluded her from standing for more than a few moments. Psychiatric: affect is normal, does not appear anxious or depressed Triage Information Reviewed: Yes Vital Signs On Initial Exam: Initial Vitals Temp Pulse Resp BP Pulse Ox 98.5 F 87 15 146/93 99 10/21/18 21:25 10/21/18 21:25 10/21/18 21:25 10/21/18 21:25 10/21/18 21:25 Vital Signs Reviewed: Yes Diagnostics - Vital Signs Vital Signs Temp Pulse Resp BP Pulse Ox 10/21/18 21:29 148/96 10/21/18 21:25 98.5 F 87 15 146/93 99 - Laboratory Lab Statement: Any lab studies that have been ordered have been reviewed, and results considered in the medical decision making process. Re-Evaluation - Re-Evaluation First Eval Re-Evaluation Time: 23:18 Change: Improved Comment: Pt is much better, ambulating indepently to bathroom. She would like to go home. Dizzy Course/Dx - Course Course Of Treatment: Patient is a 48 y/o F with a cc of intermittent episodes of room-spinning dizziness and near syncope with ambulation and positional changes and alleviation with rest throughout the day. Additionally c/o nausea, vomiting, diffuse pounding headache, and decreased oral intake. Upon physical exam, the patient exhibits a slight nystagmus on rightward gaze, development of a current vertigo when attempting to assess gait leading to preclusion of her from stranding for more than a few minutes, and no fine motor ataxia. In the ED course, the patient was administered Meclizine. With improvement of symptoms after medication, patient is able to be discharged home with rx for Meclizine. She understands and agrees with this plan. - Diagnoses Provider Diagnoses: Peripheral vertigo Discharge - Sign-Out/Discharge Documenting (check all that apply): Patient Departure - Patient will be discharged home. Patient Received Moderate/Deep Sedation with Procedure: No - Discharge Plan Condition: Improved Disposition: HOME Prescriptions: Meclizine TAB* [Antivert 12.5 TAB*] 25 mg PO TID PRN #30 tab PRN Reason: Dizziness Patient Education Materials: Benign Paroxysmal Positional Vertigo (ED) Referrals: Adebayo Arndt MD [Primary Care Provider] - Additional Instructions: Return to the emergency department for any new or worsening symptoms. - Billing Disposition and Condition Condition: IMPROVED Disposition: Home - Attestation Statements Document Initiated by Konrad: Yes Documenting Scribe: Mariely Monge Provider For Whom Konrad is Documenting (Include Credential): Dr. Mikie Metzger MD Scribe Attestation: Mariely Brandon scribed for Dr. Mikie Metzger MD on 10/22/18 at 0647. Scribe Documentation Reviewed: Yes Provider Attestation: The documentation as recorded by the Mariely wells accurately reflects the service I personally performed and the decisions made by me, Dr. Mikie Metzger MD Status of Scribe Document: Viewed
[2018-10-21] MEDS ORDERED: Meclizine TAB* 12.5 MG PO ONE (21:54)
[2018-10-21 22:50] VITALS: BP 144/77
[2018-10-21] MEDS ORDERED: Azithromycin TAB* 250 MG PO ONE (23:20)
[2018-10-21] MEDS ORDERED: Cefdinir cap* 300 MG CAP PO SCH (23:45)
== END 2018-10-21 23:26 | disposition home or self-care (01) ==
LOC: ED 21:23
DX: H81.399 Other peripheral vertigo, unspecified ear (principal); J44.9 Chronic obstructive pulmonary disease, unspecified; F41.9 Anxiety disorder, unspecified; F31.9 Bipolar disorder, unspecified; Z21 Asymptomatic human immunodeficiency virus [HIV] infection status; F17.210 Nicotine dependence, cigarettes, uncomplicated; Z88.8 Allergy status to other drugs, medicaments and biological substances
CPT/HCPCS: 99282; A9270-GY

== ENCOUNTER 2018-11-28 14:51 | Emergency (ER) | payer MEDICARE, MEDICAID ==
--- OUTSIDE RECORDS SUMMARY | 2018-11-28 15:32 | XMS REPORT | Continuity of Care Document ---
:1970 External Reference #:[id number] Author Name Marian Spring PA (transmitted by agent of provider Adebayo Arndt) Address [address] [facility] [address] [place] [address] Problems Active Problems Provider Date Human immunodeficiency [...] intervertebral disc Marian Spring PA Onset: 2017 Neck pain Marian Spring PA Onset: 11/13/2018 Thoracic and lumbosacral neuritis Marian Spring PA Onset: 11/13/2018 Tobacco user Marian Spring PA Onset: 07/05/2018 Social History Type Date Description Comments Sex Unknown Tobacco Use Reviewed: current cigarette smoker 1 carton/week as of 11/13/18 11/13/18 up to 1/2ppd as of 10/10/18. ETOH Use 11/13/2018 Denies alcohol use Tobacco Use Reviewed: Patient is a current 11/13/18 smoker, smokes every day Recreational Drug Use 11/13/2018 Marijuana used for pain per pt Smoking Status Reviewed: Patient is a current 11/13/18 smoker, smokes every day Exercise Type/Frequency Exercises rarely Sun Exposure Uses sunscreen Seat Belt/Car Seat Seat Belt Use - Yes Guns in Home No Smoke Alarms Yes smoke alarm Allergies, Adverse Reactions, Alerts Active Allergies Reaction Severity Comments Date Wellbutrin hives 12/30/2015 Medications Active Medications SIG Qnty Indications Ordering Date Provider Albuterol Sulfate 2 puffs q4-6 hours 8.500gm Kareem Smith, 07/19/2018 HFA as needed D.O. 108(90Base) mcg/Act Aerosol Vitamin D 1 cap by mouth 12caps Adebayo Arndt, 07/06/2018 (Ergocalciferol) weekly for 12 M.D. weeks [id number] Capsules Nicoderm CQ 1 patch topically 30units F17.210 Adebayo Arndt, 07/05/2018 21mg/24HR daily as needed M.D. Patches 24HR Tramadol HCL prn Unknown 04/19/2017 50mg Tablets Back Support S/M lumbar corset 1units M48.06 Marian Spring, 06/29/2016 cristino [facility] M51.26 Triumeq 1 po daily Unknown Meloxicam 1 tab by mouth up to twice Unknown 7.5mg Tablets daily as needed for back pain Melatonin 1 every night at bedtime Unknown 10mg Capsules History Medications Methylprednisolone use as directed 1units M51.16 Hair, 09/18/2018 - 4mg TBPK on package Evelyn Fiore 11/12/2018 Ventolin HFA 2 puffs q4-6 18gm Hair, 07/19/2018 - 108(90Base) hours as needed Evelyn Fiore 07/19/2018 mcg/Act Aerosol Prednisone 2 tab by mouth 10tabs J20.9 Hair, 07/05/2018 - 20mg Tablets daily x3 days, Evelyn Fiore 09/13/2018 then 1 tab by mouth daily x4 days, then stop Immunizations CPT Code Status Date Vaccine Lot # [id number] Given 11/13/2018 Influenza Virus Vaccine, Quadrivalent, Split, [id number] Preservative Free Vital Signs Date Vital Result Comment 11/13/2018 2:00pm BP Systolic 128 mmHg BP Diastolic 80 mmHg Height 61.75 inches 5'1.75" Weight 166.00 lb BMI (Body Mass Index) 30.6 kg/m2 09/18/2018 4:38pm BP Systolic 142 mmHg BP Diastolic 82 mmHg Weight 166.00 lb Results Test Date Facility Test Result H/L Range Note Iron & Iron Binding 07/05/2018 [facility] Iron 81 g/dL Normal 50- 212 Capacity [phone] Unsaturated Iron Binding < 404 g/dL Total Iron Binding Capacity 419 g/dL Normal 250-450 Transferrin 299 mg/dL Normal 203-362 % Iron Saturation 19 % Normal 15-55 Laboratory test 07/05/2018 [facility] Vitamin B12 342 pg/mL Normal 180-914 1 finding [phone] Folic Acid (Folate) 11.63 ng/mL >3.99 CBC Auto Diff 07/05/2018 [facility] White Blood 5.6 10^3/uL Normal 3.5-10.8 [phone] Count Red Blood Count 4.99 10^6/uL High [...] Cells % 0.0 Comp Metabolic Panel 07/05/2018 [facility] Sodium 141 mmol/L Normal 135-145 [phone] Potassium 4.0 mmol/L Normal 3.5-5.0 Chloride 108 [...] Egfr 78.5 >60 2 Laboratory test 07/05/2018 [facility] TSH (Thyroid 1.56 mcIU/mL Normal 0.34-5.60 finding [phone] Stim [facility]) Hemoglobin A1c (Glyco HGB) 5.6 % Normal [...] in selective patients <6.0%. Please refer to [place] Diabetes [employer] diabetic care guidelines for further information. 4 Total 25-Hydroxyvitamin D2 and D3 (25-OH-VitD) <10 ng/mL (severe deficiency) 10-19 ng/mL (mild to moderate deficiency) 20-50 ng/mL (optimum levels) 51-80 ng/mL (increased risk of hypercalciuria) >80 ng/mL (toxicity possible) Procedures Date Code Description Status 03/06/2016 [id number] Mammogram Completed Medical Devices Description No Information Available Encounters Type Date Location Provider Dx Diagnosis Office Visit 11/13/2018 Main Office Marian Spring PA Z00.01 Encounter for 1:50p general adult medical exam w abnormal findings Z23 Encounter for immunization M51.16 Intervertebral disc disorders w radiculopathy, lumbar region M54.2 Cervicalgia B20 Human immunodeficiency virus [HIV] disease F17.210 Nicotine dependence, cigarettes, uncomplicated F43.21 Adjustment disorder with depressed mood Z12.31 Encntr screen mammogram for malignant neoplasm of breast Z68.30 Body mass index (BMI) 30.0-30.9, adult Office Visit 09/18/2018 4:30p Main Office Marian Spring, M51.16 Intervertebral disc PA disorders w radiculopathy, lumbar region M54.5 Low back pain R20.0 Anesthesia of skin B20 Human immunodeficiency virus [HIV] disease F17.210 Nicotine dependence, cigarettes, uncomplicated F43.0 Acute stress reaction Office Visit 09/14/2018 2:00p Main Office Evens Zhao R53.83 Other fatigue M54.5 Low back pain R20.0 Anesthesia of skin G57.13 Meralgia paresthetica, bilateral lower limbs Office Visit 07/05/2018 2:15p Main Office Marian Spring PA R53.83 Other fatigue F17.210 Nicotine dependence, cigarettes, uncomplicated B20 Human immunodeficiency virus [HIV] disease M51.26 Other intervertebral disc displacement, lumbar region E03.9 Hypothyroidism, unspecified J20.9 Acute bronchitis, unspecified Assessments Date Code Description Provider 11/13/2018 Z00.01 Encounter for general adult medical Marian Spring PA examination with abnormal findings 11/13/2018 Z23 Encounter for immunization Marian Spring PA 11/13/2018 M51.16 Intervertebral disc disorders with Marian Spring PA radiculopathy, lumbar reg 11/13/2018 M54.2 Cervicalgia Marian Spring PA 11/13/2018 B20 Human immunodeficiency virus [HIV] disease Marian Spring PA 11/13/2018 F17.210 Nicotine dependence, cigarettes, uncomplicated Marian Spring PA 11/13/2018 F43.21 Adjustment disorder with depressed mood Marian Spring PA 11/13/2018 Z12.31 Encounter for screening mammogram for Marian Spring PA malignant neoplasm of 11/13/2018 Z68.30 Body mass index (BMI) 30.0-30.9, adult Marian Spring PA 09/18/2018 M51.16 Intervertebral disc disorders with Marian Spring PA radiculopathy, lumbar reg 09/18/2018 M54.5 Low back pain Marian Spring PA 09/18/2018 R20.0 Anesthesia of skin Marian pSring PA 09/18/2018 B20 Human immunodeficiency virus [HIV] [...] unspecified Marian Spring PA Plan of Treatment No Information Available Functional Status Description No Information Available Mental Status Description No Information Available Referrals Refer to Reason for Referral Status Appt Date [facility] Nerve conduction study of the Sent lower extremities Testing Only [address] [facility], [address] [place] [id number] [phone]
[2018-11-28] MEDS ORDERED: Albuterol/Ipratropium NEB.SOL* Albuterol 2.5 MG/Ipratropium 0.5 MG 3 ML INH ONE (15:56)
--- NOTE | 2018-11-28 16:00 | ED ---
Shortness of Breath - HPI Summary HPI Summary: This patient is a 48 year old F presenting to ED with a chief complaint of shortness of breath since three days ago. Patient also has dry cough, congestion , and post-nasal drip. She has a history of asthma. The patient rates the pain 0 /10 in severity. Symptoms aggravated by nothing. Symptoms alleviated by nothing. Patient denies fevers, chills, chest pain, shortness of breath, palpitations - History of Current Complaint Chief Complaint: EDFluSymptoms Time Seen by Provider: 11/28/18 15:42 Hx Obtained From: Patient Onset/Duration: Gradual Onset, Lasting Days - 3 days ago, Still Present Timing: Constant Current Severity: Mild Dyspnea At: Rest Aggravating Factors: Nothing Alleviating Factors: Nothing Associated Signs & Symptoms: Negative - Fevers, chills, Cough (Nonproductive), Nasal Congestion - Allergy/Home Medications Allergies/Adverse Reactions: Allergies Allergy/AdvReac Type Severity Reaction Status Date / Time bupropion [From Wellbutrin] Allergy Severe Hives Verified 11/28/18 14:21 PMH/Surg Hx/FS Hx/Imm Hx Endocrine/Hematology History: Denies: Hx Anticoagulant Therapy, Hx Diabetes, Hx Thyroid Disease Cardiovascular History: Denies: Hx Hypertension, Hx Pacemaker/ICD Respiratory History: Reports: Hx Asthma - seasonal- more in winter, Hx Chronic Obstructive Pulmonary Disease (COPD) GI History: Denies: Hx Ulcer History: Denies: Hx Dialysis, Hx Kidney Stones, Hx Renal Disease Musculoskeletal History: Reports: Hx Arthritis - DJD, Hx Back Problems - DDD lumbar spine Denies: Hx Osteoporosis Sensory History: Reports: Hx Contacts or Glasses - read Denies: Hx Legally Blind, Hx Deafness, Hx Hearing Aid Opthamlomology History: Reports: Hx Contacts or Glasses - read Denies: Hx Legally Blind Neurological History: Reports: Hx Headaches - does get occassionally r/t pinched nerve in neck, Other Neuro Impairments/Disorders - 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 TUBAL LIGATION; HYSTERECTOMY, C SECTION, RT KNEE SCOPE X2,; right knee ACL repair 2003. BILATERAL WRIST CARPAL TUNNEL. appendectomy when 16 years old. Lt OOPHARECTOMY Hx Anesthesia Reactions: No - Immunization History Date of Tetanus Vaccine: utd Date of Influenza Vaccine: fall 2017 Infectious Disease History: No Infectious Disease History: Reports: Hx Human Immunodeficiency Virus (HIV) Denies: Hx Clostridium Difficile, Hx Hepatitis, Hx of Known/Suspected MRSA, Hx Shingles, Hx Tuberculosis, Hx Known/Suspected VRE, Hx Known/Suspected VRSA, History Other Infectious Disease, Traveled Outside the [place] in Last 30 Days - Family History Known Family History: Positive: Cardiac Disease, Hypertension, Diabetes - Social History Alcohol Use: Weekly Alcohol Amount: 1 drink per week Hx Substance Use: No Substance Use Type: Reports: Marijuana Substance Use Comment - Amount & Last Used: daily Hx Tobacco Use: Yes Smoking Status (MU): Current Every Day Smoker Type: Cigarettes Amount Used/How Often: 1/2 ppd, off and on since 18 years old Review of Systems Negative: Fever, Chills ENT: Other - Congestion, post-nasal drip Negative: Palpitations, Chest Pain Positive: Shortness Of Breath, Cough All Other Systems Reviewed And Are Negative: Yes Physical Exam - Summary Physical Exam Summary: VITAL SIGNS: Reviewed. GENERAL: Patient is a well-developed and nourished female who is lying comfortable in the stretcher. Patient is not in any acute respiratory distress. HEAD AND FACE: No signs of trauma. No ecchymosis, hematomas or skull depressions. No sinus tenderness. EYES: PERRLA, EOMI x 2, No injected conjunctiva, no nystagmus. EARS: Hearing grossly intact. Ear canals and tympanic membranes are within normal limits. MOUTH: Oropharynx within normal limits. NECK: Supple, trachea is midline, no adenopathy, no JVD, no carotid bruit, no c- spine tenderness, neck with full ROM. CHEST: Symmetric, no tenderness at palpation. LUNGS: crackles in bases of lungs, mild wheezing CVS: Regular rate and rhythm, S1 and S2 present, no murmurs or gallops appreciated. ABDOMEN: Soft, non-tender. No signs of distention. No rebound, no guarding, and no masses palpated. Bowel sounds are normal. EXTREMITIES: FROM in all major joints, no edema, no cyanosis or clubbing. NEURO: Alert and oriented x 3. No acute neurological deficits. Speech is normal and follows commands. SKIN: Dry and warm. Triage Information Reviewed: Yes Vital Signs On Initial Exam: Initial Vitals Temp Pulse Resp BP Pulse Ox 99.3 F 84 20 146/107 100 11/28/18 14:55 11/28/18 14:55 11/28/18 14:55 11/28/18 14:55 11/28/18 14:55 Vital Signs Reviewed: Yes Diagnostics - Vital Signs Vital Signs Temp Pulse Resp BP Pulse Ox 11/28/18 14:55 99.3 F 84 20 146/107 100 - Laboratory Result Diagrams: 11/28/18 16:29 11/28/18 16:29 Lab Statement: Any lab studies that have been ordered have been reviewed, and results considered in the medical decision making process. - Radiology CXR Radiology Interpretation Completed By: Radiologist Summary of Radiographic Findings: #. Stigmata of probable obstructive lung disease. No acute pulmonary or cardiac process evident. Dr. Chu has reviewed this radiology report. Re-Evaluation - Re-Evaluation First Eval Re-Evaluation Time: 17:23 Change: Improved Comment: Discussed results with patient. Patient will be discharged home with dx of cough and asthma. Patient understands and agrees with this plan. Course/Dx - Course Assessment/Plan: This patient is a 48-year-old female who presents to the emergency department with a chief complaint of having dry cough, sinus congestion, postnasal drip, and upper respiratory tract infection symptoms. she denies any fevers or chills. She denies any chest pain and palpitations. She has no other complaints. Initially the patient was wheezing slightly therefore the patient was given a DuoNeb. Blood test results without any significant abnormality. Chest x-ray impression: Stigmata provider for obstructive lung disease. No acute pulmonary cardiac process evident. After the patient was given a DuoNeb the patients symptoms have significantly improved. I will give the patient an albuterol puff here and then the patient will be discharged home. I discussed all the findings and test results with the patient. Patient was instructed to return to the emergency room immediately if any of the symptoms return or worsen . Plan of care was discussed with the patient and understands and agrees. All questions were answered at patient satisfaction. There were no further complaints or concerns. Lung exam before discharge: CTA B/L. Good air exchange. No wheezing or crackles heard. CVS: S1 and S2 present. No murmurs appreciated. Patient is alert and oriented x 3. Patient is hemodynamically stable. Patient will be discharged home with follow up PCP in the next 2-3 days - Diagnoses Provider Diagnoses: Cough, Asthma Discharge ED - Sign-Out/Discharge Documenting (check all that apply): Patient Departure - Discharge Patient Received Moderate/Deep Sedation with Procedure: No - Discharge Plan Condition: Stable Disposition: HOME Patient Education Materials: Asthma (ED), Chronic Cough (ED), Postnasal Drip ( DC) Referrals: Marian Spring PA [Primary Care Provider] - 3 Days Additional Instructions: FOLLOW UP WITH YOUR PRIMARY CARE PROVIDER WITHIN ONE WEEK. RETURN TO THE ED FOR ANY WORSENING OR NEW SYMPTOMS. - Billing Disposition and Condition Condition: STABLE Disposition: Home - Attestation Statements Document Initiated by Konrad: Yes Documenting Scribe: Jesus Park Provider For Whom Konrad is Documenting (Include Credential): Car Chu MD Scribe Attestation: IJesus, scribed for Car Chu MD on 11/29/18 at 1848. Scribe Documentation Reviewed: Yes Provider Attestation: The documentation as recorded by the Jesus wells accurately reflects the service I personally performed and the decisions made by , Car Chu MD Status of Scribe Document: Viewed
[2018-11-28 16:50] LABS: ABS Eosinophils 0.3 10^3/ul (0-0.6); ABS Lymphocytes 1.6 10^3/ul (1.0-4.8); ABS Monocytes 0.5 10^3/ul (0-0.8); ABS Neutrophils 4.6 10^3/ul (1.5-7.7); Hematocrit 47 % (35-47); Hemoglobin 16.1 g/dL (12.0-16.0); Lymphocyte % 22.3 %; Mean Corpuscular HGB Conc 35 g/dL (31-36); Mean Corpuscular Hemoglobin 32 pg (27-31); Mean Corpuscular Volume 92 fL (80-97); Mean Platelet Volume 8.7 fL (7.4-10.4); Platelet Count 194 10^3/uL (150-450); Red Blood Count 5.07 10^6 /uL (3.70-4.87); Red Cell Distribution Width 15 % (10-15)
[2018-11-28 17:11] LABS: Troponin I 0.01 ng/mL (<0.04)
[2018-11-28 17:17] LABS: Albumin 4.3 g/dL (3.2-5.2); Albumin/Globulin Ratio 1.5 (1-3); BUN/Creatinine Ratio 17.6 (8-20); C Reactive Protein 1.46 mg/L (<8.01); Calcium 9.4 mg/dL (8.6-10.3); EGFR African American 102.2 (>60); EGFR Non-African American 84.5 (>60); Globulin 2.8 g/dL (2-4); Potassium 3.5 mmol/L (3.5-5.0); Total Bilirubin 0.3 mg/dL (0.2-1.0); Total Protein 7.1 g/dL (6.4-8.9)
[2018-11-28] MEDS ORDERED: Albuterol HFA INHALER* 8 gm MDI INH ONE (17:21)
[2018-11-28 17:46] VITALS: BP 161/91
== END 2018-11-28 17:30 | disposition home or self-care (01) ==
LOC: ED 14:51
DX: R05 Cough (principal); J45.909 Unspecified asthma, uncomplicated; J44.9 Chronic obstructive pulmonary disease, unspecified; F41.9 Anxiety disorder, unspecified; F31.9 Bipolar disorder, unspecified; F17.210 Nicotine dependence, cigarettes, uncomplicated; Z88.8 Allergy status to other drugs, medicaments and biological substances; Z90.710 Acquired absence of both cervix and uterus; Z90.721 Acquired absence of ovaries, unilateral
CPT/HCPCS: 36415; 71046; 80053; 83605; 83880; 84484; 85025; 86140; 99282; A9270-GY

== ENCOUNTER 2019-01-04 12:19 | Emergency (ER) | payer MEDICARE, MEDICAID ==
--- OUTSIDE RECORDS SUMMARY | 2019-01-04 12:26 | XMS REPORT | Continuity of Care Document ---
:1970 External Reference #:[id number] Author Name Dennis Shepherd N.P. 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 Medicine Problems Description No Information Available Social History Type Date Description Comments Sex Unknown Tobacco Use Start: Unknown Light tobacco smoker (10 or fewer cigarettes/day) Smoking Status Reviewed: 01/04/19 Light tobacco smoker (10 or fewer cigarettes/day) ETOH Use Occasionally consumes alcohol Tobacco Use Start: Unknown Patient is a current smoker, 1/2 PPD smokes every day Recreational Drug Use Denies Drug Use Exercise Type/Frequency Does not exercise Allergies, Adverse Reactions, Alerts Active Allergies Reaction Severity Comments Date Wellminh ramsey 01/09/2018 Medications Active Medications SIG Qnty Indications Ordering Provider Date Lyrica 1 by mouth twice 60caps R51 Dennis Shepherd, 01/04/2019 25mg Capsules a day N.P. Tramadol HCL 1-2 tablets by Unknown 50mg mouth every 6 Tablets hours as needed pain Ibuprofen 1 by mouth three Unknown 800mg Tablets times a day w food as needed pain and swelling Meloxicam take one tab Unknown 7.5mg Tablets twice daily as needed for pain, avoid other nsaids Triumeq 1 by mouth every Unknown [id number] day Tablets Pravastatin Sodium Unknown 10mg Tablets Immunizations Description No Information Available Vital Signs Date Vital Result Comment 01/04/2019 11:02am Height 62.5 inches 5'2.50" Weight 160.00 lb BP Systolic 120 mmHg BP Diastolic 80 mmHg BMI (Body Mass Index) 28.8 kg/m2 05/28/2018 4:20pm Height 62.5 inches 5'2.50" Heart Rate 88 /min BP Systolic Sitting 132 mmHg BP Diastolic Sitting 86 mmHg Respiratory Rate 14 /min Pain Level 6 Procedures Date Code Description Status 10/09/2018 07371 Nerve Conduction 05-06 Studies Completed 10/09/2018 90166 Needle Electromyography Complete, Five Or More Muscles Completed Studied Medical Devices Description No Information Available Encounters Description No Information Available Assessments Date Code Description Provider 01/04/2019 R51 Headache Dennis Shepherd, N.P. 01/04/2019 M54.16 Radiculopathy, lumbar region Dennis Shepherd N.PSherlyn 01/04/2019 M47.892 Other spondylosis, cervical region Dennis Shepherd N.PSherlyn 10/09/2018 M54.16 Radiculopathy, lumbar region Keyon Katz MD Plan of Treatment Future Appointment(s):02/25/2019 11:00 am - Dennis Shepherd N.PSherlyn at [facility]01/04/2019 - Dennis Shepherd N.P.R51 HeadacheNew Medication:Lyrica 25 mg - 1 by mouth twice a dayNew Xrays:CT Brain Wo, Ordered: 01/04/19Cta Head [address] & Neck [address]370 W/Contrast, Ordered: 01/04/19New Orders: EKG, Ordered: 01/04/19Follow up:6 weeksRecommendations:Riboflavin 400 mg daily ( vitamin b-2)M54.16 Radiculopathy, lumbar gorjeuB95.892 Other spondylosis, cervical region Functional Status Description No Information Available Mental Status Description No Information Available Referrals Description No Information Available
[2019-01-04 12:33] VITALS: BP 138/91
--- NOTE | 2019-01-04 12:42 | UC ---
Hip/Pelvis Pain - HPI Summary HPI Summary: WOKE UP YESTERDAY MORNING WITH LEFT HIP PAIN. NO TRAUMA. NO PREVIOUS SIMILAR SYMPTOMS. IS ABLE TO WEIGHT-BEAR BUT WITH DISCOMFORT. TOOK TRAMADOL LAST NIGHT WITH NO EFFECT. MELOXICAM ALSO NOT HELPFUL. DID NOT TAKE HER MORNING DOSE OF MELOXICAM TODAY. - History Of Current Complaint Chief Complaint: UCLowerExtremity Stated Complaint: HIP PAIN Time Seen by Provider: 01/04/19 12:37 Hx Obtained From: Patient Hx Last Menstrual Period: hyster Onset/Duration: Sudden Onset, Lasting Days, Still Present Timing: Constant Severity Initially: Moderate Severity Currently: Moderate Pain Intensity: 4 Pain Scale Used: 0-10 Numeric Location: Discrete At: - LEFT HIP Aggravating Factor(s): Movement, Weight Bearing Alleviating Factor(s): Rest Associated Signs And Symptoms: Positive: Negative - Allergies/Home Medications Allergies/Adverse Reactions: Allergies Allergy/AdvReac Type Severity Reaction Status Date / Time bupropion [From Wellbutrin] Allergy Severe Hives Verified 12/28/18 13:21 PMH/Surg Hx/FS Hx/Imm Hx Respiratory History: COPD, Asthma Other History Of: HIV Negative For: Anticoagulant Therapy - Surgical History Surgical History: Yes Surgery Procedure, Year, and Place: C SPINE SURGERY C5-C6 FUSION WITH FLEX PLATE -,. TUBAL LIGATION; HYSTERECTOMY, C SECTION, RT KNEE SCOPE X2,; right knee ACL repair 2003. BILATERAL WRIST CARPAL TUNNEL. appendectomy when 16 years old. Lt OOPHARECTOMY - Family History Known Family History: Positive: Cardiac Disease, Hypertension, Diabetes - Social History Alcohol Use: Rare Alcohol Amount: 1 x month Substance Use Type: Marijuana Substance Use Comment - Amount & Last Used: daily Smoking Status (MU): Heavy Every Day Tobacco Smoker Type: Cigarettes Amount Used/How Often: 1/2 ppd, off and on since 18 years old Have You Smoked in the Last Year: Yes Household Exposure Type: Cigarettes Review of Systems All Other Systems Reviewed And Are Negative: Yes Constitutional: Positive: Negative Skin: Positive: Negative Respiratory: Positive: Negative Cardiovascular: Positive: Negative Gastrointestinal: Positive: Negative Musculoskeletal: Positive: Arthralgia, Decreased ROM Physical Exam Triage Information Reviewed: Yes Appearance: Well-Appearing, Well-Nourished, Pain Distress - MOD Vital Signs: Initial Vital Signs Temp 97.9 F 01/04/19 12:31 Pulse 78 01/04/19 12:31 Resp 16 01/04/19 12:31 BP 138/91 01/04/19 12:31 Pulse Ox 100 01/04/19 12:31 Vital Signs Reviewed: Yes Eyes: Positive: Conjunctiva Clear ENT: Positive: Hearing grossly normal Neck: Positive: Supple Respiratory: Positive: No respiratory distress, No accessory muscle use Cardiovascular: Positive: Pulses Normal Abdomen Description: Positive: Soft Musculoskeletal: Positive: No Edema, ROM Limited @ - LEFT HIP, Other: - TTP LEFT HIP GREATER TROCHANTER Neurological: Positive: Alert Psychological: Positive: Age Appropriate Behavior Skin: Negative: Rashes Diagnostics - Radiology LEFT HIP XRAYS Radiology Interpretation Completed By: Radiologist Summary of Radiographic Findings: 1. 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 2. No evidence of fracture. Hip Injury Course/Dx - Course Course Of Treatment: X-RAYS OF THE LEFT HIP TODAY UNREMARKABLE. FOR FRACTURE OR DISLOCATION. 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 SHE DOES HAVE CHRONIC LOW BACK PAIN FOR WHICH SHE ALREADY SEES PHYSICAL THERAPY AND HER REGULAR PHYSICIAN. 60 MG TORADOL ADMINISTERED INTRAMUSCULARLY. PATIENT ADVISED TO HOLD OFF ON HER MELOXICAM UNTIL THIS EVENING. FOLLOW-UP WITH HER PCP. - Differential Dx/Diagnosis Provider Diagnosis: Trochanteric bursitis of left hip Discharge ED - Sign-Out/Discharge Documenting (check all that apply): Patient Departure All imaging exams completed and their final reports reviewed: Yes - Discharge Plan Condition: Stable Disposition: HOME Patient Education Materials: Hip Bursitis (ED) Referrals: Marian Spring PA [Primary Care Provider] - If Needed Additional Instructions: X-RAYS TODAY NEGATIVE FOR FRACTURE OR DISLOCATION. YOUR PHYSICAL EXAM IS CONSISTENT WITH TROCHANTERIC BURSITIS. CONTINUE YOUR MELOXICAM TWICE DAILY PRESCRIBED. DISCUSS YOUR SYMPTOMS WITH YOUR PHYSICAL THERAPIST. 60 MG TORADOL INTRAMUSCULARLY WAS GIVEN TO YOU HERE IN URGENT CARE. DO NOT TAKE YOUR MORNING DOSE OF MELOXICAM TODAY. REST. - Billing Disposition and Condition Condition: STABLE Disposition: Home
[2019-01-04] MEDS ORDERED: Ketorolac *IM* INJ* 60 MG/2 ML VIAL IM ONE (13:32)
== END 2019-01-04 14:10 | disposition home or self-care (01) ==
LOC: UCEAST 12:19
DX: M70.62 Trochanteric bursitis, left hip (principal); J44.9 Chronic obstructive pulmonary disease, unspecified; F17.210 Nicotine dependence, cigarettes, uncomplicated; M54.9 Dorsalgia, unspecified; G89.29 Other chronic pain; Z88.8 Allergy status to other drugs, medicaments and biological substances
CPT/HCPCS: 96372; 99211; G0463; J1885

== ENCOUNTER 2019-01-05 16:42 | Emergency (ER) | payer MEDICARE, MEDICAID ==
--- NOTE | 2019-01-05 17:07 | ED ---
HPI Chest Pain - HPI Summary HPI Summary: This patient is a 48 year old F BIBA vis EMS to ED with a chief complaint of constant, non-radiating, central epigastric chest pain described as crushing since 1100 today. At the time, patient was a passenger in a car to go buy cigarettes. Patient was drinking soda at the time when the chest pain began. She also reports losing consciousness in the car. Patient states it feels like acid reflux. EMS gave ASA 324mg. The patient rates the pain 7/10 in severity. Symptoms aggravated by nothing. Symptoms alleviated by nothing. Patient denies SOB. Patient is HIV+. - History of Current Complaint Chief Complaint: EDChestPainROMI Time Seen by Provider: 01/05/19 16:51 Hx Obtained From: Patient Hx Last Menstrual Period: hyster Onset/Duration: Started Hours Ago - 1100 this morning, Still Present Time of Onset: 11:00 Timing: Constant Initial Severity: Moderate Current Severity: Moderate Pain Intensity: 7 Pain Scale Used: 0-10 Numeric Chest Pain Location: Mid Sternal Chest Pain Radiates: No Character: Crushing Aggravating Factor(s): Nothing Alleviating Factor(s): Nothing Associated Signs and Symptoms: Positive: Chest Pain, Other: - LOC. Negative: Shortness of Breath - Allergy/Home Medications Allergies/Adverse Reactions: Allergies Allergy/AdvReac Type Severity Reaction Status Date / Time bupropion [From Wellbutrin] Allergy Severe Hives Verified 12/28/18 13:21 PMH/Surg Hx/FS Hx/Imm Hx Endocrine/Hematology History: Reports: Other Endocrine/Hematological Disorders - HIV+ Denies: Hx Anticoagulant Therapy, Hx Diabetes, Hx Thyroid Disease Cardiovascular History: Reports: Hx Hypercholesterolemia Denies: Hx Hypertension, Hx Pacemaker/ICD Respiratory History: Reports: Hx Asthma - seasonal- more in winter, Hx Chronic Obstructive Pulmonary Disease (COPD) GI History: Denies: Hx Ulcer History: Denies: Hx Dialysis, Hx Kidney Stones, Hx Renal Disease Musculoskeletal History: Reports: Hx Arthritis - DJD, Hx Back Problems - DDD lumbar spine Denies: Hx Osteoporosis, Hx Scoliosis Sensory History: Reports: Hx Contacts or Glasses - read Denies: Hx Legally Blind, Hx Deafness, Hx Hearing Aid Opthamlomology History: Reports: Hx Contacts or Glasses - read Denies: Hx Legally Blind Neurological History: Denies: Hx Headaches, Other Neuro Impairments/Disorders - PAIN CLINIC PT. Psychiatric History: Reports: Hx Anxiety, Hx Bipolar Disorder Denies: Hx Panic Disorder - Cancer History Hx Chemotherapy: No - Surgical History Surgery Procedure, Year, and Place: C SPINE SURGERY C5-C6 FUSION WITH FLEX PLATE -,. TUBAL LIGATION; HYSTERECTOMY, C SECTION, RT KNEE SCOPE X2,; right knee ACL repair 2003. BILATERAL WRIST CARPAL TUNNEL. appendectomy when 16 years old. Lt OOPHARECTOMY Hx Anesthesia Reactions: No - Immunization History Date of Tetanus Vaccine: utd Date of Influenza Vaccine: fall 2017 Infectious Disease History: No Infectious Disease History: Reports: Hx Human Immunodeficiency Virus (HIV) Denies: Hx Clostridium Difficile, Hx Hepatitis, Hx of Known/Suspected MRSA, Hx Shingles, Hx Tuberculosis, Hx Known/Suspected VRE, Hx Known/Suspected VRSA, History Other Infectious Disease, Traveled Outside the in Last 30 Days - Family History Known Family History: Positive: Cardiac Disease, Hypertension, Diabetes - Social History Alcohol Use: Rare Alcohol Amount: 1 x month Hx Substance Use: Yes Substance Use Type: Reports: Marijuana Substance Use Comment - Amount & Last Used: daily Hx Tobacco Use: Yes Smoking Status (MU): Heavy Every Day Tobacco Smoker Type: Cigarettes Amount Used/How Often: 1/2 ppd, off and on since 18 years old Have You Smoked in the Last Year: Yes Review of Systems Positive: Chest Pain - Non-radiating, central epigastric Negative: Shortness Of Breath Neurological: Other - Loss of consciousness All Other Systems Reviewed And Are Negative: Yes Physical Exam - Summary Physical Exam Summary: Appearance: The patient is well-nourished in no acute distress and in no acute pain. Skin: The skin is warm and dry, and skin color reflects adequate perfusion. HEENT: The head is normocephalic and atraumatic. The pupils are equal and reactive. The conjunctivae are clear and without drainage. Nares are patent and without drainage. Mouth reveals moist mucous membranes, and the throat is without erythema and exudate. The external ears are intact. The ear canals are patent and without drainage. The tympanic membranes are intact. Neck: The neck is supple with full range of motion and non-tender. There are no carotid bruits. There is no neck vein distension. Respiratory: Chest is non-tender. Lungs are clear to auscultation and breath sounds are symmetrical and equal. Cardiovascular: Heart is regular rate and rhythm. There is no murmur or rub auscultated. There is no peripheral edema and pulses are symmetrical and equal. Abdomen: The abdomen is soft and non-tender. There are normal bowel sounds heard in all four quadrants and there is no organomegaly palpated. Musculoskeletal: Mild left parasternal tenderness. Neurological: Patient is alert and oriented to person, place and time. The patient has symmetrical motor strength in all four extremities. Cranial nerves are grossly intact. Deep tendon reflexes are symmetrical and equal in all four extremities. Psychiatric: The patient has an appropriate affect and does not exhibit any anxiety or depression. Triage Information Reviewed: Yes Vital Signs On Initial Exam: Initial Vitals Temp Pulse Resp BP Pulse Ox 98.0 F 80 17 166/83 100 01/05/19 16:44 01/05/19 16:44 01/05/19 16:44 01/05/19 16:44 01/05/19 16:44 Vital Signs Reviewed: Yes Procedures - Sedation Patient Received Moderate/Deep Sedation with Procedure: No Diagnostics - Vital Signs Vital Signs Temp Pulse Resp BP Pulse Ox 01/05/19 16:44 98.0 F 80 17 166/83 100 - Laboratory Result Diagrams: 01/05/19 17:00 01/05/19 17:00 Lab Statement: Any lab studies that have been ordered have been reviewed, and results considered in the medical decision making process. - Radiology CXR Radiology Interpretation Completed By: Radiologist Summary of Radiographic Findings: #. Stigmata of obstructive lung disease. No acute pulmonary or cardiac process evident. Dr. Barry has reviewed this radiology report. - EKG 1648 Cardiac Rate: NL - 61 BPM EKG Rhythm: Sinus Rhythm ST Segment: Normal Ectopy: None Summary of EKG Findings: Normal sinus rhythm at 61 BPM, normal ST, no ectopy, no STEMI. Dr. Barry has reviewed and interpreted this EKG. Chest Pain Course/Dx - Course Course Of Treatment: Ms. Real developed chest pain while riding as a passenger in a car while drinking soda. She is a smoker. She was nontoxic in appearance with stable vital signs on arrival. She is placed on the monitor. An EKG was obtained which was unremarkable for acute ischemic change. Labs were obtained including a troponin which is negative. At this point we are pending a second troponin. She was given sucralfate which did not help her pain therefore Toradol has not been ordered for her. - Diagnoses Provider Diagnoses: Chest pain Discharge ED - Sign-Out/Discharge Documenting (check all that apply): Sign-Out Patient Signing out patient TO: Ronnie Spivey - Discharge Plan Condition: Stable Disposition: HOME Patient Education Materials: Chest Pain (ED) Referrals: Marian Spring PA [Primary Care Provider] - 3 Days Additional Instructions: PLEASE RETURN TO EMERGENCY DEPARTMENT FOR ANY NEW OR WORSENING SYMPTOMS. Please follow up with your primary care physician. Please make all follow-ups in 1-3 days unless I advise you otherwise. - Billing Disposition and Condition Condition: STABLE Disposition: Home - Attestation Statements Document Initiated by Scribe: Yes Documenting Scribe: Jesus Park Provider For Whom Konrad is Documenting (Include Credential): Mikie Barry MD Scribe Attestation: Jesus Brandon, scribed for Mikie Barry MD on 01/06/19 at 1057. Scribe Documentation Reviewed: Yes Provider Attestation: The documentation as recorded by the Jesus wells accurately reflects the service I personally performed and the decisions made by me, Mikie Barry MD Status of Scribraimundo Document: Viewed
[2019-01-05 17:13] LABS: ABS Eosinophils 0.1 10^3/ul (0-0.6); ABS Lymphocytes 1.4 10^3/ul (1.0-4.8); ABS Monocytes 0.2 10^3/ul (0-0.8); ABS Neutrophils 4.4 10^3/ul (1.5-7.7); Eosinophil % 1.9 %; Hematocrit 45 % (35-47); Hemoglobin 15.4 g/dL (12.0-16.0); Lymphocyte % 22.7 %; Mean Corpuscular HGB Conc 34 g/dL (31-36); Mean Corpuscular Hemoglobin 31 pg (27-31); Mean Corpuscular Volume 91 fL (80-97); Mean Platelet Volume 8.7 fL (7.4-10.4); Platelet Count 186 10^3/uL (150-450); Red Blood Count 4.94 10^6 /uL (3.70-4.87); Red Cell Distribution Width 14 % (10-15); White Blood Count 6.2 10^3/uL (3.5-10.8)
[2019-01-05] MEDS ORDERED: Sucralfate TAB* 1 GM PO ONE (17:14)
[2019-01-05 17:18] LABS: INR 1.03 (0.82-1.09)
[2019-01-05 17:31] LABS: Albumin/Globulin Ratio 1.5 (1-3); BUN/Creatinine Ratio 22.2 (8-20); Calcium 9.5 mg/dL (8.6-10.3); EGFR African American 92.1 (>60); EGFR Non-African American 76.1 (>60); Globulin 2.7 g/dL (2-4); Potassium 3.6 mmol/L (3.5-5.0); Total Bilirubin 0.3 mg/dL (0.2-1.0); Total Protein 6.7 g/dL (6.4-8.9)
[2019-01-05] MEDS ORDERED: Ketorolac INJ* 30 MG/ML 1 ML VIAL IM ONE (18:58)
--- NOTE | 2019-01-05 19:06 | ED ---
Progress - Progress Note Progress Note: Patient is received as a sign-out from Dr. Barry to Dr. Camara at 1900 01/05/19 shift change pending result of second troponin. 2032 - Second trop was negative. Results of workup was discussed with the patient. The patient is discharged to home and will follow up with PCP in 1-3 days. Strict return precautions were given. Re-Evaluation - Re-Evaluation First Eval Re-Evaluation Time: 20:33 Comment: 2032 - Second trop was negative. Results of workup was discussed with the patient. The patient is discharged to home and will follow up with PCP in 1- 3 days. Strict return precautions were given. Course/Dx - Course Course Of Treatment: Patient was signed out by Dr. Barry pending a second troponin. Patient's second troponin came back normal. Patient is made aware of her results and was comfortable with discharge. - Diagnoses Provider Diagnoses: Chest pain Discharge ED - Sign-Out/Discharge Documenting (check all that apply): Patient Departure - discharge - Discharge Plan Condition: Stable Disposition: HOME Patient Education Materials: Chest Pain (ED) Referrals: Marian Spring PA [Primary Care Provider] - 3 Days Additional Instructions: PLEASE RETURN TO EMERGENCY DEPARTMENT FOR ANY NEW OR WORSENING SYMPTOMS. Please follow up with your primary care physician. Please make all follow-ups in 1-3 days unless I advise you otherwise. - Billing Disposition and Condition Condition: STABLE Disposition: Home - Attestation Statements Document Initiated by Konrad: Yes Documenting Scribe: KAMI AMIN Provider For Whom Konrad is Documenting (Include Credential): ELBERT CAMARA MD Scribe Attestation: KAMI Brandon, scribed for ELBERT CAMARA MD on 01/05/19 at 2122. Scribe Documentation Reviewed: Yes Provider Attestation: The documentation as recorded by the KAMI wells accurately reflects the service I personally performed and the decisions made by me, ELBERT CAMARA MD Status of Scribe Document: Viewed
[2019-01-05 20:49] VITALS: BP 152/100
== END 2019-01-05 20:48 | disposition home or self-care (01) ==
LOC: ED 16:42
DX: R07.89 Other chest pain (principal); B20 Human immunodeficiency virus [HIV] disease; Z88.8 Allergy status to other drugs, medicaments and biological substances; F17.210 Nicotine dependence, cigarettes, uncomplicated
CPT/HCPCS: 36415; 71046; 80053; 84484; 85025; 85610; 93005; 96372; 99283; A9270-GY; J1885

== ENCOUNTER 2019-03-03 20:13 | Emergency (ER) | payer MEDICARE, MEDICAID ==
--- OUTSIDE RECORDS SUMMARY | 2019-03-03 20:21 | XMS REPORT | Continuity of Care Document ---
:1970 External Reference #:[id number] Author Name Kareem Smith D.O. Address [address] [place] [id number] Problems Active Problems Provider Date Human immunodeficiency [...] Smoking Status Reviewed: Patient is a current 01/14/19 smoker, smokes every day Exercise Type/Frequency Exercises rarely Sun Exposure Uses sunscreen Seat Belt/Car Seat Seat Belt Use - Yes Guns in Home No Smoke Alarms Yes smoke alarm Allergies, Adverse Reactions, Alerts Active Allergies Reaction Severity Comments Date Wellbutrin hives 12/30/2015 Medications Active Medications SIG Qnty Indications Ordering Provider Date Breo Ellipta inhale 1 puff by 60units J45.901 Kareem Smith, 01/14/2019 mouth daily for D.O. 100-25mcg/Inh Aerosol asthma R07.89 Pregabalin Take 1 Capsule By Unknown 01/07/2019 25mg Capsules Mouth Twice Daily . DO Not Exceed 2 Per 24 Hours Pravastatin Sodium Unknown 12/25/2018 10mg Tablets Albuterol Sulfate HFA 2 puffs q4-6 hours 8.500gm Kareem Smith, 2018 as needed D.O. 108(90Base) mcg/Act Aerosol Vitamin D 1 cap by mouth 12caps Adebayo Arndt, 07/06/2018 (Ergocalciferol) weekly for 12 weeks M.D. 04567Pxpy Capsules Nicoderm CQ 1 patch topically 30units F17.210 Adebayo Arndt, 07/05/2018 21mg/24HR daily as needed M.D. Patches 24HR Tramadol HCL prn Unknown 04/19/2017 50mg Tablets Back Support S/M lumbar corset brace 1units M48.06 Marian Spring PA 06/29 Mis M51.26 Triumeq 1 po daily Unknown Meloxicam [...] as needed Evelyn Fiore 07/19/2018 mcg/Act Aerosol Medications Administered in Office Medication SIG Qnty Indications Ordering Provider Date injection, kenalog, 10 mg Kareem Smith D.OSherlyn 01/14/2019 Injection Immunizations CPT Code Status Date Vaccine Lot # [id number] Given 11/13/2018 Influenza Virus Vaccine, Quadrivalent, Split, [id number] Preservative Free Vital Signs Date Vital Result Comment 01/14/2019 3:46pm BP Systolic 118 mmHg BP Diastolic 76 mmHg Weight 175.00 lb 11/13/2018 2:00pm BP Systolic 128 mmHg BP Diastolic 80 mmHg Height 61.75 inches 5'1.75" Weight 166.00 lb BMI (Body Mass Index) 30.6 kg/m2 Results Test Acquired Date Facility Test Result H/L Range Note Laboratory test 01/05/2019 [facility] Troponin-I 0.00 ng/mL <0.04 1 finding [phone] (TnI) CBC Auto Diff 01/05/2019 [facility] White 6.2 10^3/uL Normal 3.5- 10.8 [phone] Blood Count Red Blood Count 4.94 10^6/uL High 3.70-4.87 Hemoglobin 15.4 g/dL Normal 12.0-16.0 Hematocrit 45 % Normal 35-47 Mean Corpuscular Volume 91 fL Normal 80-97 Mean Corpuscular Hemoglobin 31 pg Normal 27-31 Mean Corpuscular HGB Conc 34 g/dL Normal 31-36 Red Cell Distribution Width 14 % Normal 10-15 Platelet Count 186 10^3/uL Normal 150-450 Mean Platelet Volume 8.7 fL Normal 7.4-10.4 Abs Neutrophils 4.4 10^3/uL Normal 1.5-7.7 Abs Lymphocytes 1.4 10^3/uL Normal 1.0-4.8 Abs Monocytes 0.2 10^3/uL Normal 0-0.8 Abs Eosinophils 0.1 10^3/uL Normal 0-0.6 Abs Basophils 0.0 10^3/uL Normal 0-0.2 Abs Nucleated RBC 0.0 10^3/uL Granulocyte % 70.8 % Lymphocyte % 22.7 % Monocyte % 4.0 % Eosinophil % 1.9 % Basophil % 0.6 % Nucleated Red Blood Cells % 0.0 Inr/Protime 01/05/2019 [facility] Inr 1.03 Normal 0.82-1.09 2 [phone] Comp Metabolic Panel 01/05/2019 [facility] Sodium 140 mmol/L Normal 135-145 [phone] Potassium 3.6 mmol/L Normal 3.5-5.0 Chloride 110 mmol/L Normal 101-111 Co2 Carbon Dioxide 25 mmol/L Normal 22-32 Anion Gap 5 mmol/L Normal 2-11 Glucose 118 mg/dL High 70-100 Blood Urea Nitrogen 18 mg/dL Normal 6-24 Creatinine 0.81 mg/dL Normal 0.51-0.95 BUN/Creatinine Ratio 22.2 High 8-20 Calcium 9.5 mg/dL Normal 8.6-10.3 Total Protein 6.7 g/dL Normal 6.4-8.9 Albumin 4.0 g/dL Normal 3.2-5.2 Globulin 2.7 g/dL Normal 2-4 Albumin/Globulin Ratio 1.5 Normal 1-3 Total Bilirubin 0.30 mg/dL Normal 0.2-1.0 Alkaline Phosphatase 60 U/L Normal 34-104 Alt 11 U/L Normal 7-52 Ast 16 U/L Normal 13-39 Egfr Non- 76.1 >60 Egfr 92.1 >60 3 Laboratory test 01/05/2019 [facility] Troponin-I (TnI) 0.00 ng/mL < 0.04 4 finding [phone] Laboratory test 12/14/2018 [facility] Alternaria tenuis <0.35 kU/L 5 finding [phone] IgE Allergen Aspergillus Fumigatus IgE <0.35 kU/L 6 Paloma albicans Allergen IgE <0.35 kU/L 7 Cladosporium herbarum IgE 0.36 kU/L 8 Helminthosporium halodes IgE <0.35 kU/L 9 Mucor racemosus Allergen IgE <0.35 kU/L 10 Penicillium notatum Allerg IgE 1.54 kU/L 11 CBC Auto Diff 11/28/2018 [facility] White Blood 7.0 10^3/uL Normal 3.5-10.8 [phone] Count Red Blood Count 5.07 10^6/uL High 3.70-4.87 Hemoglobin 16.1 g/dL High 12.0-16.0 Hematocrit 47 % Normal 35-47 Mean Corpuscular Volume 92 fL Normal 80-97 Mean Corpuscular Hemoglobin 32 pg High 27-31 Mean Corpuscular HGB Conc 35 g/dL Normal 31-36 Red Cell Distribution Width 15 % Normal 10-15 Platelet Count 194 10^3/uL Normal 150-450 Mean Platelet Volume 8.7 fL Normal 7.4-10.4 Abs Neutrophils 4.6 10^3/uL Normal 1.5-7.7 Abs Lymphocytes 1.6 10^3/uL Normal 1.0-4.8 Abs Monocytes 0.5 10^3/uL Normal 0-0.8 Abs Eosinophils 0.3 10^3/uL Normal 0-0.6 Abs Basophils 0.0 10^3/uL Normal 0-0.2 Abs Nucleated RBC 0.0 10^3/uL Granulocyte % 66.5 % Lymphocyte % 22.3 % Monocyte % 6.6 % Eosinophil % 4.0 % Basophil % 0.6 % Nucleated Red Blood Cells % 0.0 Laboratory test 11/28/2018 [facility] Lactic Acid 1.1 mmol/L Normal 0.5-2.0 12 finding [phone] B-Type Natriuretic Peptide BNP 26 pg/mL <=100 Troponin-I (TnI) 0.01 ng/mL <0.04 13 Comp Metabolic Panel 11/28/2018 [facility] Sodium 139 mmol/L Normal 135-145 [phone] Potassium 3.5 mmol/L Normal 3.5-5.0 Chloride 107 mmol/L Normal 101-111 Co2 Carbon Dioxide 27 mmol/L Normal 22-32 Anion Gap 5 mmol/L Normal 2-11 Glucose 89 mg/dL Normal 70-100 Blood Urea Nitrogen 13 mg/dL Normal 6-24 Creatinine 0.74 mg/dL Normal 0.51-0.95 BUN/Creatinine Ratio 17.6 Normal 8-20 Calcium 9.4 mg/dL Normal 8.6-10.3 Total Protein 7.1 g/dL Normal 6.4-8.9 Albumin 4.3 g/dL Normal 3.2-5.2 Globulin 2.8 g/dL Normal 2-4 Albumin/Globulin Ratio 1.5 Normal 1-3 Total Bilirubin 0.30 mg/dL Normal 0.2-1.0 Alkaline Phosphatase 78 U/L Normal 34-104 Alt 13 U/L Normal 7-52 Ast 17 U/L Normal 13-39 Egfr Non- 84.5 >60 Egfr 102.2 >60 14 Laboratory test 11/28/2018 [facility] C Reactive 1.46 mg/L Normal < 8.01 finding [phone] Protein 1 Troponin-I testing on Plasma Separator Tubes (PST) has a known false positive rate of 0.20-0.40%. All positive troponins reflex immediately to secondary confirmatory testing. Using the Qnovo DxI 800 Access Immunoassay systems, the 99th percentile upper reference limit was demonstrated to be < 0.03 ng/mL. 2 Standard intensity warfarin therapeutic range: 2.0-3.0 High intensity warfarin therapeutic range: 2.5-3.5 3 Because ethnic data is not always readily [...] 15-29 5 Kidney failure <15 (or dialysis) 4 Troponin-I testing on Plasma Separator Tubes (PST) has a known false positive rate of 0.20-0.40%. All positive troponins reflex immediately to secondary confirmatory testing. Using the Qnovo DxI 800 Access Immunoassay systems, the 99th percentile upper reference limit was demonstrated to be < 0.03 ng/mL. 5 Class 0 (Negative <0.35) Test Performed by: [place] [address] Chicken Sexer: Ernesto Trujillo M.D. Ph.D.; CLIA# [id number] 6 Class 0 (Negative <0.35) Test Performed by: [place] [address] [employer] Sexer: Ernesto Trujillo M.D. Ph.D.; CLIA# [id number] 7 Class 0 (Negative <0.35) Test Performed by: [place] [address] [employer] Sexer: Ernesto Trujillo M.D. Ph.D.; CLIA# [id number] 8 Class 1 (Equivocal 0.35-0.69) Test Performed by: [place] [address] [employer] Sexer: Ernesto Trujillo M.D. Ph.D.; CLIA# [id number] 9 Class 0 (Negative <0.35) Test Performed by: [place] [address] [employer] Sexer: Ernesto Trujillo M.D. Ph.D.; CLIA# [id number] 10 Class 0 (Negative <0.35) Test Performed by: [place] [address] [employer] Sexer: Ernesto Trujillo M.D. Ph.D.; CLIA# [id number] 11 Class 2 (Positive 0.70-3.49) Test Performed by: [place] [address] [employer] Sexer: Ernesto Trujillo M.D. Ph.D.; CLIA# [id number] [address] [facility] Severe Sepsis and Septic Shock Management Bundle Measure requires all lactic acids initially measuring >2.0 mmol/L be repeated. 13 Troponin-I testing on Plasma Separator Tubes (PST) has a known false positive rate of 0.20-0.40%. All positive troponins reflex immediately to secondary confirmatory testing. Using the Dep-XploraI 800 Access Immunoassay systems, the 99th percentile upper reference limit was demonstrated to be < 0.03 ng/mL. 14 Because ethnic data is not always readily [...] 15-29 5 Kidney failure <15 (or dialysis) Procedures Date Code Description Status 01/14/2019 85769 Inject/Drain Joint/Bursa Major Completed 12/05/2018 93180490 Mammogram Completed Medical Devices Description No Information Available Encounters Type Date Location Provider Dx Diagnosis Office Visit 01/14/2019 Main Office Kareem Smith D.O. R07.89 Other chest pain 3:30p M25.552 Pain in left hip M51.16 Intervertebral disc disorders w radiculopathy, lumbar region M54.2 Cervicalgia B20 Human immunodeficiency virus [HIV] disease F17.210 Nicotine dependence, cigarettes, uncomplicated F43.21 Adjustment disorder with depressed mood M54.5 Low back pain M70.62 Trochanteric bursitis, left hip Office Visit 09/18/2018 4:30p Main Office Marian [...] skin G57.13 Meralgia paresthetica, bilateral lower limbs Assessments Date Code Description Provider 01/14/2019 R07.89 Other chest pain Kareem Smith D.O. 01/14/2019 M25.552 Pain in left hip Kareem Smith D.O. 01/14/2019 M51.16 Intervertebral disc disorders with Kareem Smith D.O. radiculopathy, lumbar reg 01/14/2019 M54.2 Cervicalgia Kareem Smith D.O. 01/14/2019 B20 Human immunodeficiency virus [HIV] disease Kareem Smith D.O. 01/14/2019 F17.210 Nicotine dependence, cigarettes, Kareem Smith D.O. uncomplicated 01/14/2019 F43.21 Adjustment disorder with depressed mood Kareem Smith D.O. 01/14/2019 M54.5 Low back pain Kareem Smith D.O. 01/14/2019 M70.62 Trochanteric bursitis, left hip Kareem Smith D.O. 11/13/2018 Z00.01 Encounter for general adult medical Marian Spring PA examination with abnormal findings 11/13/2018 Z23 Encounter for immunization Marian Spring PA 11/13/2018 M51.16 Intervertebral disc disorders with Marian Spring PA radiculopathy, lumbar reg 11/13/2018 M54.2 Cervicalgia Marian Spring PA 11/13/2018 B20 Human immunodeficiency virus [HIV] disease Marian Spring PA 11/13/2018 F17.210 Nicotine dependence, cigarettes, Marian Spring PA uncomplicated 11/13/2018 F43.21 Adjustment disorder with depressed mood [...] Spring PA 09/18/2018 F17.210 Nicotine dependence, cigarettes, Marian Spring PA uncomplicated 09/18/2018 F43.0 Acute stress reaction Marian Spring PA 09/14/2018 R53.83 Other fatigue Ro Hooks, P.A. 09/14/2018 M54.5 Low back pain Ro Hooks, P.A. 09/14/2018 R20.0 Anesthesia of skin Ro Hooks, P.A. 09/14/2018 G57.13 Meralgia paresthetica, bilateral lower limbs Evens Zhao Plan of Treatment Future Appointment(s):02/13/2019 1:00 pm - Marian Spring PA at Main [facility]7901/2019 - Kareem Smith D.O.R07.89 Other chest painNew Medication:Breo Ellipta 100-25 mcg/Inh - inhale 1 puff by mouth daily for asthmaComments:with CXR showing obstruction and history of asthma I suspect that chest pain is related to respiratory causes. We will start Breo today and follow up in 1 month. If recurrent chest pain persists cardiology referral for advanced testing is reasonable. Anxiety and or GERD are also on the differential.Follow up:1 month Chest/Left hip pain w/ KHM25.552 Pain in left hipM51.16 Intervertebral disc disorders with radiculopathy, lumbar regM54.2 [id number] Human immunodeficiency virus [HIV] slktchcC58.210 Nicotine dependence, cigarettes, kxpjkvwpsmsilE56.21 Adjustment disorder with depressed moodM54.5 Low back painM70.62 Trochanteric bursitis, left hip Functional Status Description No Information Available Mental Status Description No Information Available Referrals Refer to Reason for Referral Status Appt Date [facility] Nerve conduction study of the Closed lower extremities Testing Only [address], [address] [place] [id number] [phone]
[2019-03-03] MEDS ORDERED: Ketorolac INJ* 30 MG/ML 1 ML VIAL IM ONE (20:59)
[2019-03-03] MEDS ORDERED: Ondansetron ODT TAB* 4 MG PO ONE (21:00)
[2019-03-03 21:20] LABS: Urine Appearance Cloudy; Urine Bilirubin Negative (Negative); Urine Blood 2+ (Negative); Urine Color Yellow; Urine Glucose Negative (Negative); Urine Ketones Trace (Negative); Urine Nitrite Negative (Negative); Urine Protein 1+(30 mg/dL) (Negative); Urine Urobilinogen Positive (Negative)
[2019-03-03 21:24] LABS: ABS Eosinophils 0.1 10^3/ul (0-0.6); ABS Lymphocytes 1.2 10^3/ul (1.0-4.8); ABS Monocytes 0.8 10^3/ul (0-0.8); ABS Neutrophils 6.9 10^3/ul (1.5-7.7); Eosinophil % 1.5 %; Hematocrit 44 % (35-47); Hemoglobin 14.9 g/dL (12.0-16.0); Lymphocyte % 12.9 %; Mean Corpuscular HGB Conc 34 g/dL (31-36); Mean Corpuscular Hemoglobin 31 pg (27-31); Mean Corpuscular Volume 92 fL (80-97); Platelet Count 184 10^3/uL (150-450); Red Blood Count 4.78 10^6 /uL (3.70-4.87); Red Cell Distribution Width 15 % (10-15)
[2019-03-03 21:26] LABS: Urine Bacteria 1+ (Absent); Urine Red Blood Cell 1+(3-5/hpf) (Absent); Urine Squamous Epithelial Cell Present (Absent); Urine White Blood Cell 3+(>20/hpf) (Absent)
[2019-03-03 21:55] LABS: Albumin/Globulin Ratio 1.3 (1-3); BUN/Creatinine Ratio 11.2 (8-20); C Reactive Protein 38.02 mg/L (<8.01); Calcium 9.1 mg/dL (8.6-10.3); EGFR African American 82.6 (>60); EGFR Non-African American 68.3 (>60); Globulin 3.1 g/dL (2-4); Potassium 3.7 mmol/L (3.5-5.0); Total Bilirubin 0.3 mg/dL (0.2-1.0); Total Protein 7.1 g/dL (6.4-8.9)
--- NOTE | 2019-03-03 22:13 | ED ---
GI/ HPI - HPI Summary HPI Summary: 48-year-old female presents with flank pain for the past 3 days. she states ite started on the left side radiates to the front. She denies any hematuria. Admits to urgency frequency and dysuria. Does have a history UTIs. She denies any fevers. she admits to nausea but no vomiting. No history kidney stones. She does have a history of HIV. She has had her appendix removed. She states she does have a history of back pain but this is different. - History of Current Complaint Chief Complaint: EDFlankPain Time Seen by Provider: 03/03/19 20:44 Stated Complaint: FLANK PAIN PER PT Hx Last Menstrual Period: hyster Pain Intensity: 7 - Allergy/Home Medications Allergies/Adverse Reactions: Allergies Allergy/AdvReac Type Severity Reaction Status Date / Time bupropion [From Wellbutrin] Allergy Severe Hives Verified 03/03/19 20:17 PMH/Surg Hx/FS Hx/Imm Hx Endocrine/Hematology History: Reports: Other Endocrine/Hematological Disorders - HIV+ Denies: Hx Anticoagulant Therapy, Hx Diabetes, Hx Thyroid Disease Cardiovascular History: Reports: Hx Hypercholesterolemia Denies: Hx Hypertension, Hx Pacemaker/ICD Respiratory History: Reports: Hx Asthma - seasonal- more in winter, Hx Chronic Obstructive Pulmonary Disease (COPD) GI History: Denies: Hx Ulcer History: Denies: Hx Dialysis, Hx Kidney Stones, Hx Renal Disease Musculoskeletal History: Reports: Hx Arthritis - DJD, Hx Back Problems - DDD lumbar spine Denies: Hx Osteoporosis, Hx Scoliosis Sensory History: Reports: Hx Contacts or Glasses - read Denies: Hx Legally Blind, Hx Deafness, Hx Hearing Aid Opthamlomology History: Reports: Hx Contacts or Glasses - read Denies: Hx Legally Blind Neurological History: Denies: Hx Headaches, Other Neuro Impairments/Disorders Psychiatric History: Reports: Hx Anxiety, Hx Bipolar Disorder Denies: Hx Panic Disorder - Cancer History Hx Chemotherapy: No - Surgical History Surgery Procedure, Year, and Place: C SPINE SURGERY C5-C6 FUSION WITH FLEX PLATE -,{[facility] - PER INSERT - HAS NOT BEEN TESTED FOR MRI ENVIRONMENT -SAFETY/ HEATING/TORQUE/MIGRATION - SCANNING PT MAY CAUSE INJURY - NO MRI UNTIL FURTHER INFORMATION IS OBTAINED FROM [facility] }. TUBAL LIGATION; HYSTERECTOMY, C SECTION, RT KNEE SCOPE X2,; right knee ACL repair 2003. BILATERAL WRIST CARPAL TUNNEL. appendectomy when 16 years old. Lt OOPHARECTOMY, Hx Anesthesia Reactions: No - Immunization History Date of Tetanus Vaccine: utd Date of Influenza Vaccine: fall 2017 Infectious Disease History: No Infectious Disease History: Reports: Hx Human Immunodeficiency Virus (HIV) Denies: Hx Clostridium Difficile, Hx Hepatitis, Hx of Known/Suspected MRSA, Hx Shingles, Hx Tuberculosis, Hx Known/Suspected VRE, Hx Known/Suspected VRSA, History Other Infectious Disease, Traveled Outside the [place] in Last 30 Days - Family History Known Family History: Positive: Cardiac Disease, Hypertension, Diabetes - Social History Alcohol Use: None Alcohol Amount: 1 x month Hx Substance Use: Yes Substance Use Type: Reports: Marijuana Substance Use Comment - Amount & Last Used: for anxiety Hx Tobacco Use: Yes Smoking Status (MU): Heavy Every Day Tobacco Smoker Type: Cigarettes Amount Used/How Often: 1/2 ppd, off and on since 18 years old Have You Smoked in the Last Year: Yes Review of Systems Negative: Fever Positive: Vomiting, Nausea. Negative: Abdominal Pain Positive: dysuria, flank pain All Other Systems Reviewed And Are Negative: Yes Physical Exam Triage Information Reviewed: Yes Vital Signs On Initial Exam: Initial Vitals Temp Pulse Resp BP Pulse Ox 99.3 F 108 18 127/77 97 03/03/19 20:15 03/03/19 20:15 03/03/19 20:15 03/03/19 20:15 03/03/19 20:15 Vital Signs Reviewed: Yes Appearance: Positive: Well-Appearing Skin: Positive: Warm, Dry Head/Face: Positive: Normal Head/Face Inspection Eyes: Positive: Normal, Conjunctiva Clear ENT: Positive: Pharynx normal Respiratory/Lung Sounds: Positive: Clear to Auscultation, Breath Sounds Present Cardiovascular: Positive: Normal, RRR Abdomen Description: Positive: Soft, Other: - tenderness RUQ. Negative: CVA Tenderness (R), CVA Tenderness (L) Bowel Sounds: Positive: Present Musculoskeletal: Positive: Normal Neurological: Positive: Normal Psychiatric: Positive: Normal Procedures - Sedation Patient Received Moderate/Deep Sedation with Procedure: No Diagnostics - Vital Signs Vital Signs Temp Pulse Resp BP Pulse Ox 03/03/19 20:15 99.3 F 108 18 127/77 97 - Laboratory Lab Results: Lab Results 03/03/19 03/03/19 03/03/19 Range/Units 21:08 21:18 21:18 WBC 9.0 (3.5-10.8) 10^3/uL RBC 4.78 (3.70-4.87) 10^6 /uL Hgb 14.9 (12.0-16.0) g/dL Hct 44 (35-47) % MCV 92 (80-97) fL MCH 31 (27-31) pg MCHC 34 (31-36) g/dL RDW 15 (10-15) % Plt Count 184 (150-450) 10^3/uL MPV 9.0 (7.4-10.4) fL Neut % (Auto) 76.3 % Lymph % (Auto) 12.9 % Cass % (Auto) 9.0 % Eos % (Auto) 1.5 % Baso % (Auto) 0.3 % Absolute Neuts (auto) 6.9 (1.5-7.7) 10^3/ul Absolute Lymphs (auto) 1.2 (1.0-4.8) 10^3/ul Absolute Monos (auto) 0.8 (0-0.8) 10^3/ul Absolute Eos (auto) 0.1 (0-0.6) 10^3/ul Absolute Basos (auto) 0.0 (0-0.2) 10^3/ul Absolute Nucleated RBC 0.0 10^3/ul Nucleated RBC % 0.0 Sodium 138 (135-145) mmol/L Potassium 3.7 (3.5-5.0) mmol/L Chloride 105 (101-111) mmol/L Carbon Dioxide 27 (22-32) mmol/L Anion Gap 6 (2-11) mmol/L BUN 10 (6-24) mg/dL Creatinine 0.89 (0.51-0.95) mg/dL Est GFR ( Amer) 82.6 (>60) Est GFR (Non-Af Amer) 68.3 (>60) BUN/Creatinine Ratio 11.2 (8-20) Glucose 97 (70-100) mg/dL Calcium 9.1 (8.6-10.3) mg/dL Total Bilirubin 0.30 (0.2-1.0) mg/dL AST 12 L (13-39) U/L ALT 8 (7-52) U/L Alkaline Phosphatase 76 (34-104) U/L C-Reactive Protein 38.02 H (<8.01) mg/L Total Protein 7.1 (6.4-8.9) g/dL Albumin 4.0 (3.2-5.2) g/dL Globulin 3.1 (2-4) g/dL Albumin/Globulin Ratio 1.3 (1-3) Lipase 16 (11.0-82.0) U/L Urine Color Yellow Urine Appearance Cloudy Urine pH 5.0 (5-9) Ur Specific [place] 1.020 (1.010-1.030) Urine Protein 1+(30 mg/dl) A (Negative) Urine Ketones Trace A (Negative) Urine Blood 2+ A (Negative) Urine Nitrate Negative (Negative) Urine Bilirubin Negative (Negative) Urine Urobilinogen Positive A (Negative) Ur Leukocyte Esterase 2+ A (Negative) Urine WBC (Auto) 3+(>20/hpf) A (Absent) Urine RBC (Auto) 1+(3-5/hpf) A (Absent) Ur Squamous Epith Cells Present A (Absent) Urine Bacteria 1+ A (Absent) Urine Glucose Negative (Negative) Result Diagrams: 03/03/19 21:18 03/03/19 21:18 Lab Statement: Any lab studies that have been ordered have been reviewed, and results considered in the medical decision making process. - Ultrasound No standard instances Ultrasound Interpretation Completed By: Radiologist Summary of Ultrasound Findings: IMPRESSION: No acute sonographic pathology. Re-Evaluation - Re-Evaluation First Eval Re-Evaluation Time: 22:36 Change: Improved Comment: less naueous and dec pain GIGU Course/Dx - Course Course Of Treatment: 48-year-old female presents with flank pain for the past 3 days. she states ite started on the left side radiates to the front. She denies any hematuria. Admits to urgency frequency and dysuria. Does have a history UTIs. She denies any fevers. she admits to nausea but no vomiting. No history kidney stones. She does have a history of HIV. She has had her appendix removed. She states she does have a history of back pain but this is different. On exam no CVA tenderness but is tender of lower back. She is tender to a right upper quadrant. wbc normal. CRP elevated. Urine shows a UTI. gallbladder ultrasound shows normal gallbladder and kidney. We'll give dose of Rocephin. We'll treat potential complicated UTI with Augmentin. Give Zofran as needed for nausea. Told to follow up primary. Patient understands and with the plan. - Diagnoses Differential Diagnoses - Female: Pyelonephritis, Urinary Tract Infection, Ureteral Calculi Provider Diagnoses: UTI (urinary tract infection) Discharge ED - Sign-Out/Discharge Documenting (check all that apply): Patient Departure - Discharge Plan Condition: Good Disposition: HOME Prescriptions: Amoxicillin/Clavulanate TAB* [Augmentin TAB 500 mg*] 500 mg PO BID #14 tab Ondansetron ODT TAB* [Zofran 4 MG Odt TAB*] 4 mg PO Q6H PRN #16 tab.odt PRN Reason: Nausea Patient Education Materials: Urinary Tract Infection in Women (ED) Referrals: Marian Spring PA [Primary Care Provider] - Additional Instructions: Take augmentin twice a day for 7 days take zofran every 6 hours for nausea drink plenty of fluids take tyenlol or ibuprofen every 6 hours for pain Follow up with primary within 5 days Return to ED if develop fever or any new or worsening symptoms - Billing Disposition and Condition Condition: GOOD Disposition: Home
[2019-03-03] MEDS ORDERED: Lidocaine 1% MPF ** 5 ML VIAL IM ONE (22:29)
[2019-03-03] MEDS ORDERED: cefTRIAXone VIAL(*) 1,000 MG VIAL IM ONE (22:29)
[2019-03-03 23:00] VITALS: BP 120/88
--- NOTE | 2019-03-06 07:17 | ED ---
Imaging and Labs Follow Up Follow Up Type: Labs/Cultures Labs/Culture Result: Urine culture preliminary grew Escherichia coli Patient Communication/Plan: Patient had symptoms of UTI and was placed on Augmentin Patient Communication/Plan: We will await sensitivities Provider Diagnoses: UTI (urinary tract infection)
== END 2019-03-03 23:00 | disposition home or self-care (01) ==
LOC: ED 20:13
DX: N39.0 Urinary tract infection, site not specified (principal); Z21 Asymptomatic human immunodeficiency virus [HIV] infection status; E78.00 Pure hypercholesterolemia, unspecified; J44.9 Chronic obstructive pulmonary disease, unspecified; F41.9 Anxiety disorder, unspecified; F31.9 Bipolar disorder, unspecified; F17.210 Nicotine dependence, cigarettes, uncomplicated; Z98.51 Tubal ligation status; Z90.710 Acquired absence of both cervix and uterus; Z90.721 Acquired absence of ovaries, unilateral; Z90.89 Acquired absence of other organs; Z88.8 Allergy status to other drugs, medicaments and biological substances
CPT/HCPCS: 36415; 76705; 80053; 81003; 81015; 83690; 85025; 86140; 87077; 87086; 87186; 96372; 99283; A9270-GY; J0696; J1885

== ENCOUNTER 2019-04-24 14:47 | Emergency (ER) | payer MEDICARE, MEDICAID ==
--- OUTSIDE RECORDS SUMMARY | 2019-04-24 15:01 | XMS REPORT | Continuity of Care Document ---
:1970 External Reference #:[id number] Author Name Shanice Laguna M.D. 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 day Stopped smoking with (5) pregnancies. Recreational Drug Use Current Drug User Smoke marijuana once weekly for back discomfort Exercise Type/Frequency Does not exercise Allergies, Adverse Reactions, Alerts Active Allergies Reaction Severity Comments Date Wellbutrin hives 01/09/2018 Medications Active Medications SIG Qnty Indications Ordering Provider Date Lyrica 1tab in am 2 tab 90caps R51 Dennis Shepherd, 02/25/2019 25mg Capsules in pm N.P. Tramadol HCL 1-2 tablets by Unknown 50mg mouth every 6 Tablets hours as needed pain Meloxicam take one tab Unknown 7.5mg Tablets twice daily as needed for pain, avoid other nsaids Triumeq 1 by mouth every Unknown 535-89-233oz day Tablets Pravastatin Sodium 1 tablet by mouth Unknown 10mg every night Tablets Breo Ellipta 1 puff inhaled Unknown daily 100-25mcg/Inh Aerosol Albuterol Sulfate HFA 1 puff every 4-6 Unknown hours as needed 108(90Base) mcg/Act Aerosol Melatonin ER take 1 tab Unknown 10mg nightly as needed Tablets ER for sleep. Vitamin D take 1 capsule by Unknown (Ergocalciferol) mouth once weekly 1.25mg (68955 Ut) Capsules History Medications Lyrica 1 by mouth twice 60caps R51 Dennis Shepherd, 01/04/2019 - 25mg a day N.P. 02/25/2019 Capsules Immunizations Description No Information Available Vital Signs Date Vital Result Comment 03/15/2019 1:53pm Height 62.5 inches 5'2.50" Weight 174.50 lb with boots Heart Rate 84 /min BP Systolic 160 mmHg Rue BP Diastolic 106 mmHg Rue BP Systolic Sitting 160 mmHg Lue (regular cuff) BP Diastolic Sitting 100 mmHg Lue (regular cuff) BP Systolic Standing 150 mmHg Rue BP Diastolic Standing 106 mmHg Rue BMI (Body Mass Index) 31.4 kg/m2 02/25/2019 11:26am Height 62.5 inches 5'2.50" Weight 173.25 lb Heart Rate 74 /min BP Systolic Sitting 110 mmHg BP Diastolic Sitting 68 mmHg Respiratory Rate 18 /min BMI (Body Mass Index) 31.2 kg/m2 Results Description No Information Available Procedures Date Code Description Status 03/15/2019 50210 EKG Tracing & Interpretation Completed 10/09/2018 21320 Nerve Conduction 05-06 Studies Completed 10/09/2018 63691 Needle Electromyography Complete, Five Or More Muscles Completed Studied Medical Devices Description No Information Available Encounters Type Date Location Provider Dx Diagnosis Office Visit 02/25/2019 [facility] Dennis Shepherd, R51 Headache 11:00[facility] M54.16 Radiculopathy, lumbar region M47.892 Other spondylosis, cervical region Office Visit 01/04/2019 11:00a [facility] Dennis Shepherd, R51 Headache [facility] M54.16 Radiculopathy, lumbar region M47.892 Other spondylosis, cervical region Assessments Date Code Description Provider 03/15/2019 Z72.0 Tobacco use Shanice Laguna M.D. 03/15/2019 R07.9 Chest pain, unspecified Shanice Laguna M.D. 03/15/2019 E78.5 Hyperlipidemia, unspecified Shanice Laguna M.D. 03/15/2019 I10 Essential (primary) hypertension Shanice Laguna M.D. 02/25/2019 R51 Headache Dennis Shepherd, N.P. 02/25/2019 M54.16 Radiculopathy, lumbar region Dennis Shepherd, N.P. 02/25/2019 M47.892 Other spondylosis, cervical region Dennis Shepherd, N.P. 01/04/2019 R51 Headache Dennis Shepherd, N.P. 01/04/2019 M54.16 Radiculopathy, lumbar region Dennis Shepherd, N.P. 01/04/2019 M47.892 Other spondylosis, cervical region Dennis Shepherd, N.P. 10/09/2018 M54.16 Radiculopathy, lumbar region Keyon Katz MD Plan of Treatment Future Appointment(s):04/12/2019 1:20 pm - Griselda Norman NP at [facility]04/03/2019 11:30 am - Shanice Laguna M.D. at [facility]04/05/2019 10:00 am - [place] [facility] at [facility]2019 10:30 am - Jimy Zepeda MD at [facility]2019 3:45 pm - Juan Comer M.D. at [facility]03/15 - Shanice Laguna M.D.Z72.0 Tobacco useR07.9 Chest pain, unspecifiedNew Orders:Echocardiogram, Ordered: 03/15/19tress Test, Pharmacologic Nuclear (Lexiscan), Ordered: 03/15/19Follow up:ov MEDICINAL CHEMIST 4-6 wks to discuss all [id number] Hyperlipidemia, [id number] Essential (primary) hypertensionFollow up:one yr ov with me Functional Status Description No Information Available Mental Status Description No Information Available Referrals Description No Information Available
--- OUTSIDE RECORDS SUMMARY | 2019-04-24 15:01 | XMS REPORT | Continuity of Care Document ---
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 [phone] Medicine Problems Description No Information Available Social History Type Date Description Comments Sex Unknown Tobacco Use Start: Unknown Light tobacco smoker (10 or fewer cigarettes/day) Smoking Status Reviewed: 02/25/19 Light tobacco smoker (10 or fewer cigarettes/day) [...] nsaids Triumeq 1 by mouth every Unknown [id number] day Tablets Pravastatin Sodium 1 tablet by mouth Unknown 10mg daily Tablets Breo Ellipta 1 puff inhaled Unknown daily 100-25mcg/Inh Aerosol Albuterol Sulfate HFA as needed Unknown 108(90Base) mcg/Act Aerosol Melatonin ER take 1 tab Unknown 10mg nightly as needed Tablets ER for sleep. Vitamin D take 1 capsule by Unknown (Ergocalciferol) mouth once weekly 1.25mg (31999 Ut) Capsules History Medications Lyrica 1 by mouth twice 60caps R51 Dennis Shepherd, 01/04/2019 - 25mg a day N.P. 02/25/2019 Capsules Immunizations Description No Information Available Vital Signs Date Vital Result Comment 02/25/2019 11:26am Height 62.5 inches 5'2.50" Weight 173.25 lb Heart Rate 74 /min BP Systolic Sitting 110 mmHg BP Diastolic Sitting 68 mmHg Respiratory Rate 18 /min BMI (Body Mass Index) 31.2 kg/m2 01/04/2019 11:02am Height 62.5 inches 5'2.50" Weight 160.00 lb BP Systolic 120 mmHg BP Diastolic 80 mmHg BMI (Body Mass Index) 28.8 kg/m2 Results Description No Information Available Procedures Date Code Description Status 10/09/2018 64419 Nerve Conduction 05-06 Studies Completed 10/09/2018 33803 Needle Electromyography Complete, Five Or More Muscles Completed Studied Medical Devices Description No Information Available Encounters Type Date Location Provider Dx Diagnosis Office Visit 02/25/2019 [facility] Dennisnataliia Shepherd, R51 Headache 11:00[facility] M54.16 Radiculopathy, lumbar region M47.892 Other spondylosis, cervical region Office Visit 01/04/2019 11:00a [facility] Dennis Shepherd, R51 Headache [facility] M54.16 Radiculopathy, lumbar region M47.892 Other spondylosis, cervical region Assessments Date Code Description Provider 02/25/2019 R51 Headache Dennis Shepherd, N.P. 02/25/2019 M54.16 Radiculopathy, lumbar region Dennis Shepherd, N.P. 02/25/2019 M47.892 Other spondylosis, cervical region Dennis Shepherd, N.P. 01/04/2019 R51 Headache Dennis Shepherd, N.P. 01/04/2019 M54.16 Radiculopathy, lumbar region Dennis Shepherd, N.P. 01/04/2019 M47.892 Other spondylosis, cervical region Dennis Shepherd, N.P. 10/09/2018 M54.16 Radiculopathy, lumbar region Keyon Katz MD Plan of Treatment Future Appointment(s):06/05/2019 10:30 am - Jimy Zepeda MD at [facility]07/04/2019 3:45 pm - Juan Comer M.D. at [facility]02/25/2019 - Dennis Shepherd N.P.R51 HeadacheNew Medication:Lyrica 25 mg - 1tab in am 2 tab in pmFollow up:3 monthsRecommendations:Call me in 4-6 weeks to let me know how you are doing on the increased lyrica Call me for your referral to [id number] Radiculopathy, lumbar fubofyN87.892 Other spondylosis, cervical region Functional Status Description No Information Available Mental Status Description No Information Available Referrals Description No Information Available
--- OUTSIDE RECORDS SUMMARY | 2019-04-24 15:01 | XMS REPORT | Continuity of Care Document ---
:1970 External Reference #:[id number] Author Name Sarahi Hummel MD Address [address] [place] [address] Problems Active Problems Provider Date Human immunodeficiency [...] Tobacco user Marian Spring PA Onset: 07/05/2018 Thoracic and lumbosacral neuritis Marian Spring PA Onset: 11/13/2018 Neck pain Marian Spring PA Onset: 11/13/2018 Social History Type Date Description Comments Sex Unknown Tobacco Use Reviewed: current cigarette smoker 1 carton/week as of 11/13/18 11/13/18 up to 1/2ppd as of 10/10/18. ETOH Use 11/13/2018 Denies alcohol use Tobacco Use Reviewed: Patient is a current 11/13/18 smoker, smokes every day Recreational Drug Use 11/13/2018 Marijuana used for pain per pt Smoking Status Reviewed: Patient is a current 04/23/19 smoker, smokes every day Exercise Type/Frequency Exercises rarely Sun Exposure Uses sunscreen Seat Belt/Car Seat Seat Belt Use - Yes Guns in Home No Smoke Alarms Yes smoke alarm Allergies, Adverse Reactions, Alerts Active Allergies Reaction Severity Comments Date Wellbutrin hives 12/30/2015 Medications Active Medications SIG Qnty Indications Ordering Provider Date Nicotine Polacrilex one lozenge by 216units F17.210 Sarahi Hummel, 04/23 mouth every 4 MD 4mg Lozenges hours as needed. do not chew or swallow Vitamin D3 1 cap by mouth 30caps Adebayo Arndt, 02/13/2019 125mcg daily M.D. (5000 Ut) Capsules Breo Ellipta inhale 1 puff by 60units J45.901 Kareem Smith, 01/14/2019 mouth daily for D.O. 100-25mcg/Inh asthma Aerosol R07.89 Pregabalin Take 1 Capsule By Unknown 01/07/2019 25mg Capsules Mouth Twice Daily . DO Not Exceed 2 Per 24 Hours Pravastatin Sodium Unknown 12/25/2018 10mg Tablets Albuterol Sulfate HFA 2 puffs q4-6 hours 8.500gm Sarahi Hummel, 2018 as needed 108(90Base) mcg/Act Aerosol Nicoderm CQ 1 patch topically 30units F17.210 Adebayo Arndt, 07/05/2018 21mg/24HR daily as needed M.D. Patches 24HR Tramadol HCL prn Unknown 04/19/2017 50mg Tablets Back Support S/M lumbar corset brace 1units M48.06 Marian Spring PA 06/29 [facility] M51.26 Triumeq 1 po daily Unknown Meloxicam 1 tab by mouth up to twice Unknown 7.5mg Tablets daily as needed for back pain Melatonin 1 every night at bedtime Unknown 10mg Capsules Medications Administered in Office Medication SIG Qnty Indications Ordering Provider Date injection, kenalog, 10 mg Kareem Smith D.OSherlyn 01/14/2019 Injection Immunizations CPT Code Status Date Vaccine Lot # [id number] Given 11/13/2018 Influenza Virus Vaccine, Quadrivalent, Split, [id number] Preservative Free Vital Signs Date Vital Result Comment 04/23/2019 1:26pm BP Systolic 146 mmHg BP Diastolic 68 mmHg Heart Rate 96 /min O2 % BldC Oximetry 98 % Height 62.25 inches 5'2.25" Weight 2155.00 lb BMI (Body Mass Index) 391.0 kg/m2 02/13/2019 1:02pm BP Systolic 122 mmHg BP Diastolic 80 mmHg Weight 177.50 lb Results Test Acquired Date Facility Test Result H/L Range Note Urinalysis Profile 03/03/2019 [facility] Urine Color Yellow [phone] Urine Appearance Cloudy Urine Specific [place] 1.020 Normal 1.010-1.030 Urine pH 5.0 Normal 5-9 Urine Urobilinogen Positive Abnormal Negative Urine Ketones Trace Abnormal Negative Urine Protein 1+(30 mg/dL) Abnormal Negative Urine Leukocytes 2+ Abnormal Negative Urine Blood 2+ Abnormal Negative Urine Nitrite Negative Negative Urine Bilirubin Negative Negative Urine Glucose Negative Negative Urine White Blood Cell 3+(>20/hpf) Abnormal Absent Urine Red Blood Cell 1+(3-5/hpf) Abnormal Absent Urine Bacteria 1+ Abnormal Absent Urine Squamous Epithelial Cell Present Abnormal Absent CBC Auto Diff 03/03/2019 [facility] White Blood 9.0 10^3/uL Normal 3.5-10.8 [phone] Count Red Blood Count 4.78 10^6/uL Normal 3.70-4.87 Hemoglobin 14.9 g/dL Normal 12.0-16.0 Hematocrit 44 % Normal 35-47 Mean Corpuscular Volume 92 fL Normal 80-97 Mean Corpuscular Hemoglobin 31 pg Normal 27-31 Mean Corpuscular HGB Conc 34 g/dL Normal 31-36 Red Cell Distribution Width 15 % Normal 10-15 Platelet Count 184 10^3/uL Normal 150-450 Mean Platelet Volume 9.0 fL Normal 7.4-10.4 Abs Neutrophils 6.9 10^3/uL Normal 1.5-7.7 Abs Lymphocytes 1.2 10^3/uL Normal 1.0-4.8 Abs Monocytes 0.8 10^3/uL Normal 0-0.8 Abs Eosinophils 0.1 10^3/uL Normal 0-0.6 Abs Basophils 0.0 10^3/uL Normal 0-0.2 Abs Nucleated RBC 0.0 10^3/uL Granulocyte % 76.3 % Lymphocyte % 12.9 % Monocyte % 9.0 % Eosinophil % 1.5 % Basophil % 0.3 % Nucleated Red Blood Cells % 0.0 Comp Metabolic Panel 03/03/2019 [facility] Sodium 138 mmol/L Normal 135-145 [phone] Potassium 3.7 mmol/L Normal 3.5-5.0 Chloride 105 mmol/L Normal 101-111 Co2 Carbon Dioxide 27 mmol/L Normal 22-32 Anion Gap 6 mmol/L Normal 2-11 Glucose 97 mg/dL Normal 70-100 Blood Urea Nitrogen 10 mg/dL Normal 6-24 Creatinine 0.89 mg/dL Normal 0.51-0.95 BUN/Creatinine Ratio 11.2 Normal 8-20 Calcium 9.1 mg/dL Normal 8.6-10.3 Total Protein 7.1 g/dL Normal 6.4-8.9 Albumin 4.0 g/dL Normal 3.2-5.2 Globulin 3.1 g/dL Normal 2-4 Albumin/Globulin Ratio 1.3 Normal 1-3 Total Bilirubin 0.30 mg/dL Normal 0.2-1.0 Alkaline Phosphatase 76 U/L Normal 34-104 Alt 8 U/L Normal 7-52 Ast 12 U/L Low 13-39 Egfr Non- 68.3 >60 Egfr 82.6 >60 1 Laboratory test finding 03/03/2019 [facility] Lipase 16 U/L Normal 11.0-82.0 [phone] C Reactive Protein 38.02 mg/L High <8.01 Urine Culture And 03/03/2019 [facility] Urine Culture SEE RESULT 2 Sensitivities [phone] BELOW Laboratory test 01/05/2019 [facility] Troponin-I 0.00 ng/mL <0.04 3 finding [phone] (TnI) CBC Auto Diff 01/05/2019 [facility] White Blood 6.2 10^3/uL Normal 3.5-10 [phone] Count .8 Red Blood Count 4.94 10^6/uL High 3.70-4.87 [...] Red Blood Cells % 0.0 Inr/Protime 01/05/2019 [facility] Inr 1.03 Normal 0.82-1.09 4 [phone] Comp Metabolic Panel 01/05/2019 [facility] Sodium 140 mmol/L Normal 135-145 [phone] Potassium 3.6 mmol/L Normal 3.5-5.0 Chloride 110 [...] Egfr Non- 76.1 >60 Egfr 92.1 >60 5 Laboratory test 01/05/2019 [facility] Troponin-I (TnI) 0.00 ng/mL < 0.04 6 finding [phone] Laboratory test 12/14/2018 [facility] Alternaria tenuis <0.35 kU/L 7 finding [phone] IgE Allergen Aspergillus Fumigatus IgE <0.35 kU/L 8 Paloma albicans Allergen IgE <0.35 kU/L 9 Cladosporium herbarum IgE 0.36 kU/L 10 Helminthosporium halodes IgE <0.35 kU/L 11 Mucor racemosus Allergen IgE <0.35 kU/L 12 Penicillium notatum Allerg IgE 1.54 kU/L 13 CBC Auto Diff 11/28/2018 [facility] White Blood 7.0 10^3/uL Normal 3.5-10.8 [phone] Count Red Blood Count 5.07 10^6/uL High [...] Blood Cells % 0.0 Laboratory test 11/28/2018 [facility] Lactic Acid 1.1 mmol/L Normal 0.5-2.0 14 finding [phone] B-Type Natriuretic Peptide BNP 26 pg/mL <=100 Troponin-I (TnI) 0.01 ng/mL <0.04 15 Comp Metabolic Panel 11/28/2018 [facility] Sodium 139 mmol/L Normal 135-145 [phone] Potassium 3.5 mmol/L Normal 3.5-5.0 Chloride 107 [...] Egfr Non- 84.5 >60 Egfr 102.2 >60 16 Laboratory test 11/28/2018 [facility] C Reactive 1.46 mg/L Normal < 8.01 finding [phone] Protein 1 Because ethnic data is not always readily [...] 15-29 5 Kidney failure <15 (or dialysis) 2 SEE RESULT BELOW Name: UVALDO RAMIREZ : [address]: Mikie Metzger MD Acct: [id number] Unit: [id number] AGE: 48 Location: ED Re03/03/19 SEX: F Status: DEP ER SPEC: [id number] GAVINO: 03/03/[address]: Emily OSUNA REQ: [id number] RECD: 03/03/19 STATUS: CLAYTON WHELAN DR: aMrian Metzger MD _ SOURCE: URINE [facility]: ORDERED: Urine Culture Procedure Result Reported Site Urine Culture Final 03/06/19- 0750 ML Organism 1 ESCHERICHIA COLI [place] Count 75-100,000 (Many) CFU/ML Organism 2 NORMAL ARNOLDO [place] Count 25-50,000 (Moderate) CFU/ML 1. ESCHERICHIA COLI M.I.C. RX --------- ------ Ampicillin 8 S Cefazolin <=4 S Cefepime <=1 S Ceftriaxone <=1 S Ciprofloxacin <=0.25 S Gentamicin <=1 S Levofloxacin <=0.12 S Meropenem <=0.25 S Nitrofurantoin <=16 S Tetracycline <=1 S Pipercillin/Tazobactam <=4 S Trimethoprim/Sulfamethoxazole <=20 S Amoxicillin/Clavulanic Acid 4 S Aztreonam <=1 S CONTINUED ON NEXT PAGE DEPARTMENT OF PATHOLOGY, [facility] [employer] [place], [place] [address] José Miguel Warner M.D. Director [facility] # [id number] Specimen: [id number] Collected: 03/03/19 Received: 03/03/19 (Continued) Procedure Result Reported Site Urine Culture Final (continued) Contact the Microbiology Department for any additional antibiotic reporting. * ML - Main Lab . END OF REPORT DEPARTMENT OF PATHOLOGY, [facility] [employer] [place], [place] [address] José Miguel Warner M.D. Director [facility] # [id number] 3 Troponin-I testing on Plasma Separator Tubes (PST) has a known false positive rate of 0.20-0.40%. All positive troponins reflex immediately to secondary confirmatory testing. Using the [employer] DxI 800 Access Immunoassay systems, the 99th percentile upper reference limit was demonstrated to be < 0.03 ng/mL. 4 Standard intensity warfarin therapeutic range: 2.0-3.0 High intensity warfarin therapeutic range: 2.5-3.5 5 Because ethnic data is not always readily [...] 15-29 5 Kidney failure <15 (or dialysis) 6 Troponin-I testing on Plasma Separator Tubes (PST) has a known false positive rate of 0.20-0.40%. All positive troponins reflex immediately to secondary confirmatory testing. Using the [employer] DxI 800 Access Immunoassay systems, the 99th percentile upper reference limit was demonstrated to be < 0.03 ng/mL. 7 Class 0 (Negative <0.35) Test Performed by: [place] [address] Drum Drier Operator: Ernesto Trujillo M.D. Ph.D.; CLIA# [id number] 8 Class 0 (Negative <0.35) Test Performed by: [place] [address] [employer] D[employer] Operator: Ernesto Trujillo M.D. Ph.D.; CLIA# [id number] 9 Class 0 (Negative <0.35) Test Performed by: [place] [address] [employer] D[employer] Operator: Ernesto Trujillo M.D. Ph.D.; CLIA# [id number] 10 Class 1 (Equivocal 0.35-0.69) Test Performed by: [place] [address] [employer] D[employer] Operator: Ernesto Trujillo M.D. Ph.D.; CLIA# [id number] 11 Class 0 (Negative <0.35) Test Performed by: [place] [address] [employer] D[employer] Operator: Ernesto Trujillo M.D. Ph.D.; CLIA# [id number] 12 Class 0 (Negative <0.35) Test Performed by: [place] [address] [employer] D[employer] Operator: Ernesto Trujillo M.D. Ph.D.; CLIA# [id number] 13 Class 2 (Positive 0.70-3.49) Test Performed by: [place] [address] [employer] Drier Operator: Ernesto Trujillo M.D. Ph.D.; CLIA# [id number] 14 [facility] Severe Sepsis and Septic Shock Management Bundle Measure requires all lactic acids initially measuring >2.0 mmol/L be repeated. 15 Troponin-I testing on Plasma Separator Tubes (PST) has a known false positive rate of 0.20-0.40%. All positive troponins reflex immediately to secondary confirmatory testing. Using the [employer] DxI 800 Access Immunoassay systems, the 99th percentile upper reference limit was demonstrated to be < 0.03 ng/mL. 16 Because ethnic data is not always readily [...] dialysis) Procedures Date Code Description Status 01/14/2019 84641 Inject/Drain Joint/Bursa Major Completed 12/05/2018 56371300 Mammogram Completed Medical Devices Description No Information Available Encounters Type Date Location Provider Dx Diagnosis Office Visit 04/23/2019 Main Office Sarahi Hummel, J45.909 Unspecified asthma, 1:30p MD uncomplicated B20 Human immunodeficiency virus [HIV] disease F17.210 Nicotine dependence, cigarettes, uncomplicated Office Visit 02/13/2019 1:00p Main Office Marian Spring PA R07.89 Other chest pain M25.552 Pain in left hip M51.16 Intervertebral disc disorders w radiculopathy, lumbar region B20 Human immunodeficiency virus [HIV] disease F43.23 Adjustment disorder with mixed anxiety and depressed mood L84 Corns and callosities Office Visit 01/14/2019 3:30p Main Office Kareem Smith, R07.89 Other chest pain D.O. M25.552 Pain in left hip M51.16 Intervertebral disc disorders w radiculopathy, lumbar region M47.892 Other spondylosis, cervical region B20 Human immunodeficiency virus [HIV] disease F17.210 Nicotine dependence, cigarettes, uncomplicated F43.21 Adjustment disorder with depressed mood M54.5 Low back pain M70.62 Trochanteric bursitis, left hip Assessments Date Code Description Provider 04/23/2019 J45.909 Unspecified asthma, uncomplicated Sarahi Hummel MD 04/23/2019 B20 Human immunodeficiency virus [HIV] disease Sarahi Hummel MD 04/23/2019 F17.210 Nicotine dependence, cigarettes, Sarahi Hummel MD uncomplicated 02/13/2019 R07.89 Other chest pain Marian Spring PA 02/13/2019 M25.552 Pain in left hip Marian Spring PA 02/13/2019 M51.16 Intervertebral disc disorders with Marian Spring PA radiculopathy, lumbar reg 02/13/2019 B20 Human immunodeficiency virus [HIV] disease Marian Spring PA 02/13/2019 F43.23 Adjustment disorder with mixed anxiety and Marian Spring PA depressed mood 02/13/2019 L84 Corns and callosities Marian Spring PA 01/14/2019 R07.89 Other chest pain Kareem Smith D.O. 01/14/2019 M25.552 Pain in left hip Kareem Smith D.O. 01/14/2019 M51.16 Intervertebral disc disorders with Kareem Smith D.O. radiculopathy, lumbar reg 01/14/2019 M47.892 Other spondylosis, cervical region Kareem Smith D.O. 01/14/2019 B20 Human immunodeficiency [...] index (BMI) 30.0-30.9, adult Marian Spring PA Plan of Treatment 02/13/2019 - Marian Spring, PAR07.89 Other chest painComments:Continue Breo for now, refer to cardiology for consult and additional testing. Discussed cutting back on caffeine and working on stress reduction.Referral:[facility], Cardiology/Phys/WpytvG72.552 Pain in left hipComments:Nearly resolved after steroid injection.M51.16 Intervertebral disc disorders with radiculopathy, lumbar regComments:Hx DDD w bulging disc and lumbar stenosis, L5 radiculopathy. Pt will f/u w pain clinic and neurosurgeon.B20 Human immunodeficiency virus [HIV ] diseaseComments:Continue care at [facility].F43.23 Adjustment disorder with mixed anxiety and depressed moodComments:Work on stress reduction.L84 Corns and callositiesComments:R foot callus w pain. Refer to podiatry for management.Referral:Arturo Shin DPM, [place] Machine Operator Helper Functional Status Description No Information Available Mental Status Description No Information Available Referrals Refer to Dr Reason for Referral Status Appt Date Germania Loera MD asthma, likely COPD, possible sleep apnea, HIV Created + any insurance special agent [facility] [address], [address] [place], [place] [address] [phone] [facility] [place] plantar keratoma per Dr. Shin, see his Sent 04/08/2019 notes Consult and Treat [address] [place], [place] [id number] [phone] [facility] intermittent chest pain - pt prefers appt after Sent 03/06/19 Consult and Testing - Specialist decides [facility] [address] [place], [place] [id number] [phone] Arturo Shin DPM large callous right foot plantar aspect, Sent affecting gait Consult and Treat [facility] [place] [address] [facility] [address] [phone]
--- OUTSIDE RECORDS SUMMARY | 2019-04-24 15:01 | XMS REPORT | Continuity of Care Document ---
:1970 External Reference #:[id number] Author Name Dennis Shepherd N.P. 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 [phone] Medicine Problems Description No Information Available Social [...] nsaids Triumeq 1 by mouth every Unknown [id number] day Tablets Pravastatin Sodium Unknown 10mg Tablets History Medications Lyrica 1 by mouth twice [...] Available Procedures Date Code Description Status 10/09/2018 80876 Nerve Conduction 05-06 Studies Completed 10/09/2018 64527 Needle Electromyography Complete, Five Or More Muscles Completed Studied Medical Devices Description No Information Available Encounters Type Date Location Provider Dx Diagnosis Office Visit 01/04/2019 [place] [facility] Dennis Shepherd R51 Headache 11:00a [facility] M54.16 Radiculopathy, lumbar region M47.892 Other [...] Keyon Katz MD Plan of Treatment Future Appointment(s):07/04/2019 3:45 pm - Juan Comer M.D. at [place] [facility]03/15/2019 2:40 pm - Shanice Laguna M.D. at [place] Wytlwhsxnq97/23/2019 - Dennis Shepherd, N.P.R51 HeadacheNew Medication: Lyrica 25 mg - 1tab in am 2 tab in pmFollow up:3 monthsRecommendations:Call me in 4-6 weeks to let me know how you are doing on the increased lyrica Call me for your referral to nmgaqbiofzioR75.16 Radiculopathy, lumbar qarnolB33.892 Other spondylosis, cervical region Functional Status Description No Information Available Mental Status Description No Information Available Referrals Description No Information Available
--- NOTE | 2019-04-24 16:02 | ED ---
Neck Pain - HPI Summary HPI Summary: 48 year old F presenting to [facility] with a chief complaint of neck stiffness. She has a history of a plate placed in her neck. The patient rates the pain 7/10 in severity. Patient reports a bulging disc in her neck and that when she palpates the plate in her neck she has a shooting sensation of numbness down her back and into her left arm. Symptoms aggravated by palpation of the plate in her neck and movement of her neck. Patient denies any fever or chills. The patient had an x-ray of her neck a few months ago. She called Dr. Zepeda's office and was advised to come to the emergency department for imaging. The patient has a history of spinal stenosis and HIV and states that her viral load was undetectable when last checked. She admits to cigarette, marijuana, and occasional alcohol use. Medication list reviewed. Allergy list reviewed. Home Medications Medication Instructions Recorded Confirmed Type Abacavir/Dolutegravir/Lamivudi 1 tab PO BEDTIME 07/18/17 03/03/19 History [Triumeq Tablet (Nf)] Meloxicam(NF) [Mobic(NF)] 7.5 mg PO DAILY PRN 07/18/17 03/03/19 History traMADol TAB* [Ultram*] 50 mg PO Q6HR PRN 07/18/17 03/03/19 History Albuterol HFA INHALER* [Ventolin 1 - 2 puff INH Q4H PRN #1 mdi 03/02/18 Rx HFA Inhaler*] Meclizine TAB* [Antivert 12.5 TAB*] 25 mg PO TID PRN #30 tab 10/21/18 03/03/19 Rx Pravastatin (NF) [Pravachol (NF)] 10 mg PO DAILY 12/28/18 03/03/19 History Amoxicillin/Clavulanate TAB* 500 mg PO BID #14 tab 03/03/19 Rx [Augmentin TAB 500 mg*] Ondansetron ODT TAB* [Zofran 4 MG 4 mg PO Q6H PRN #16 tab.odt 03/03/19 Rx Odt TAB*] - History of Current Complaint Chief Complaint: EDNeckComplaint Stated Complaint: SEVERE NECK PAIN PER PT Time Seen by Provider: 04/24/19 15:50 Hx Obtained From: Patient Timing: Constant Severity Currently: Moderate Pain Intensity: 7 Pain Scale Used: 0-10 Numeric Character: Stiff Aggravating Factors: Movement, Other: - Palpation Alleviating Factors: Nothing - Allergies/Home Medications Allergies/Adverse Reactions: Allergies Allergy/AdvReac Type Severity Reaction Status Date / Time bupropion [From Wellbutrin] Allergy Severe Hives Verified 04/24/19 14:56 Home Medications: Home Medications Meloxicam(NF) [Mobic(NF)] 7.5 mg PO DAILY PRN 07/18/17 [History Confirmed ] Pravastatin (NF) [Pravachol (NF)] 10 mg PO DAILY 12/28/18 [History Confirmed ] Abacavir/Dolutegravir/Lamivudi [Triumeq Tablet (Nf)] 1 tab PO DAILY 04/24/19 [ History Confirmed 04/24/19] Cholecalciferol CAP/TAB(NF) [Vitamin D3 CAP/TAB (NF)] 5,000 unit PO DAILY [History Confirmed 04/24/19] Fluticasone/Vilanterol MDI(NF) [Breo Ellipta MDI (NF)] 1 puff INH DAILY [History Confirmed 04/24/19] Methocarbamol TAB* [Robaxin 500 MG TAB*] 500 mg PO TID PRN #12 tab 04/24/19 [Rx] PMH/Surg Hx/FS Hx/Imm Hx Endocrine/Hematology History: Reports: Other Endocrine/Hematological Disorders - HIV+ Denies: Hx Anticoagulant Therapy, Hx Diabetes, Hx Thyroid Disease Cardiovascular History: Reports: Hx Hypercholesterolemia Denies: Hx Hypertension, Hx Pacemaker/ICD Respiratory History: Reports: Hx Asthma - seasonal- more in winter, Hx Chronic Obstructive Pulmonary Disease (COPD) GI History: Denies: Hx Ulcer History: Denies: Hx Dialysis, Hx Kidney Stones, Hx Renal Disease Musculoskeletal History: Reports: Hx Arthritis - DJD, Hx Back Problems - DDD lumbar spine Denies: Hx Osteoporosis, Hx Scoliosis Sensory History: Reports: Hx Contacts or Glasses - read Denies: Hx Legally Blind, Hx Deafness, Hx Hearing Aid Opthamlomology History: Reports: Hx Contacts or Glasses - read Denies: Hx Legally Blind Neurological History: Denies: Hx Headaches, Other Neuro Impairments/Disorders Psychiatric History: Reports: Hx Anxiety, Hx Bipolar Disorder Denies: Hx Panic Disorder - Cancer History Hx Chemotherapy: No - Surgical History Surgery Procedure, Year, and Place: C SPINE SURGERY C5-C6 FUSION WITH FLEX PLATE -,{[employer] [facility] [employer] - PER INSERT - HAS NOT BEEN TESTED FOR MRI ENVIRONMENT -SAFETY/ HEATING/TORQUE/MIGRATION - SCANNING PT MAY CAUSE INJURY - NO MRI UNTIL FURTHER INFORMATION IS OBTAINED FROM [facility] }. TUBAL LIGATION; HYSTERECTOMY, C SECTION, RT KNEE SCOPE X2,; right knee ACL repair 2004. BILATERAL WRIST CARPAL TUNNEL. appendectomy when 16 years old. Lt OOPHARECTOMY, Hx Anesthesia Reactions: No - Immunization History Date of Tetanus Vaccine: utd Date of Influenza Vaccine: fall 2017 Infectious Disease History: No Infectious Disease History: Reports: Hx Human Immunodeficiency Virus (HIV) Denies: Hx Clostridium Difficile, Hx Hepatitis, Hx of Known/Suspected MRSA, Hx Shingles, Hx Tuberculosis, Hx Known/Suspected VRE, Hx Known/Suspected VRSA, History Other Infectious Disease, Traveled Outside the [place] in Last 30 Days - Family History Known Family History: Positive: Cardiac Disease, Hypertension, Diabetes - Social History Alcohol Use: None Alcohol Amount: 1 x month Hx Substance Use: Yes Substance Use Type: Reports: Marijuana Substance Use Comment - Amount & Last Used: for anxiety Hx Tobacco Use: Yes Smoking Status (MU): Heavy Every Day Tobacco Smoker Type: Cigarettes Amount Used/How Often: 1/2 ppd, off and on since 18 years old Have You Smoked in the Last Year: Yes Review of Systems Negative: Fever, Chills Positive: Other - Neck stiffness; neck pain Positive: Paresthesia, Numbness All Other Systems Reviewed And Are Negative: Yes Physical Exam - Summary Physical Exam Summary: Constitutional: Well-developed, Well-nourished, Alert. (-) Distressed Skin: Warm, Dry HENT: Normocephalic; Atraumatic Eyes: Conjunctiva normal Neck: Musculoskeletal ROM normal neck. (-) JVD, (-) Stridor, (-) Tracheal deviation Cardio: Rhythm regular, rate normal, Heart sounds normal; Intact distal pulses; Radial pulses are 2+ and symmetric. (-) Murmur Pulmonary/Chest wall: Effort normal. (-) Respiratory distress, (-) Wheezes, (-) Rales Abd: Soft, (-) tenderness, (-) Distension, (-) Guarding, (-) Rebound Musculoskeletal: (-) Edema Lymph: (-) Cervical adenopathy Neuro: Alert, Oriented x3, Decreased sensation left arm, 5/5 strength in hand and arm strength; no thenar eminence wasting. Psych: Mood and affect Normal Triage Information Reviewed: Yes Vital Signs On Initial Exam: Initial Vitals Temp Pulse Resp BP Pulse Ox 98.8 F 83 18 157/103 98 04/24/19 14:51 04/24/19 14:51 04/24/19 14:51 04/24/19 14:51 04/24/19 14:51 Vital Signs Reviewed: Yes Procedures - Sedation Patient Received Moderate/Deep Sedation with Procedure: No Diagnostics - Vital Signs Vital Signs Temp Pulse Resp BP Pulse Ox 04/24/19 14:51 98.8 F 83 18 157/103 98 - Laboratory Lab Statement: Any lab studies that have been ordered have been reviewed, and results considered in the medical decision making process. - Radiology Cervical Spine MRI Radiology Interpretation Completed By: Radiologist Summary of Radiographic Findings: C5-C6 ACDF WITH JUNCTIONAL DEGENERATIVE DISEASE AT C4-C5 THAT RESULTS IN MILD SPINAL CANAL. STENOSIS. ADDITIONAL VARYING DEGREES OF MULTILEVEL SPONDYLOSIS AND NEURAL FORAMINAL. STENOSIS ABOVE. ED physician has reviewed this report. Cervical Spine x-ray Radiology Interpretation Completed By: Radiologist Summary of Radiographic Findings: STATUS POST ANTERIOR CERVICAL FUSION. ED physician has reviewed this report. Neck Course/Dx - Course Course Of Treatment: Patient is here with neck pain. Patient has a history of spinal surgery in the past. Patient has pain in her neck and numbness and tingling in her back and left arm when she positions her head in a certain position. Patient sent in by neurosurgery for an MRI to evaluate for possible emergent condition. Patient had an MRI which showed moderate spinal stenosis but no emergent pathology. Patient was discharged with Robaxin and neurosurgery follow-up - Diagnoses Provider Diagnoses: Cervical spinal stenosis Discharge ED - Sign-Out/Discharge Documenting (check all that apply): Patient Departure - Discharge Plan Condition: Stable Disposition: HOME Prescriptions: Methocarbamol TAB* [Robaxin 500 MG TAB*] 500 mg PO TID PRN #12 tab PRN Reason: muscle spasm Patient Education Materials: Cervical Spinal Stenosis (ED) Referrals: Jimy Zepeda MD [Medical Doctor] - 3 Days Additional Instructions: Follow-up with Dr. Zepeda in 1-3 days. Return to the emergency department for any weakness in your arms, weakness in your legs, or any other concerning symptoms. Take you muscle relaxer as prescribed. - Billing Disposition and Condition Condition: STABLE Disposition: Home - Attestation Statements Document Initiated by Priscilla: Yes Documenting Scribe: Maureen Mobley Provider For Whom Priscilla is Documenting (Include Credential): Ronnie Spivey MD Scribe Attestation: Maureen Brandon, scribed for Ronnie Spivey MD on at 2048. Scribe Documentation Reviewed: Yes Provider Attestation: The documentation as recorded by the priscilla, Maureen Mobley accurately reflects the service I personally performed and the decisions made by , Ronnie Spivey MD Status of Scribe Document: Viewed
[2019-04-24] MEDS ORDERED: Methocarbamol TAB* 500 MG PO ONE (18:24)
[2019-04-24 18:44] VITALS: BP 128/91
== END 2019-04-24 18:43 | disposition home or self-care (01) ==
LOC: ED 14:47
DX: M48.02 Spinal stenosis, cervical region (principal); M50.321 Other cervical disc degeneration at C4-C5 level; Z21 Asymptomatic human immunodeficiency virus [HIV] infection status; F17.210 Nicotine dependence, cigarettes, uncomplicated; E78.00 Pure hypercholesterolemia, unspecified; J44.9 Chronic obstructive pulmonary disease, unspecified; F41.9 Anxiety disorder, unspecified; F31.9 Bipolar disorder, unspecified; Z98.51 Tubal ligation status; Z90.710 Acquired absence of both cervix and uterus; Z90.721 Acquired absence of ovaries, unilateral; Z90.89 Acquired absence of other organs; Z79.899 Other long term (current) drug therapy; Z88.8 Allergy status to other drugs, medicaments and biological substances
CPT/HCPCS: 72040; 72141; 99283; A9270-GY

== ENCOUNTER 2020-03-26 21:25 | Observation (INO) ==
[2020-03-26] MEDS ORDERED: NS 0.9% 1000 ml BAG 1,000 ML IV ONE ×2 (23:22)
[2020-03-26] MEDS ORDERED: Lidocaine PATCH 5% PATCH TRANSDERM ONE (23:22)
[2020-03-27] MEDS ORDERED: Ondansetron 4 mg VIAL 2 MG/ML 2 ml VIAL IV ONE (00:01)
[2020-03-27] MEDS: Morphine 4 MG/ML VIAL (1 ml) IV ONE ×2 (00:15→03:57)
[2020-03-27 00:31] LABS: ABS Eosinophils 0.2 10^3/ul (0-0.6); ABS Lymphocytes 1.6 10^3/ul (1.0-4.8); ABS Monocytes 0.4 10^3/ul (0-0.8); ABS Neutrophils 3.2 10^3/ul (1.5-7.7); Eosinophil % 3.1 %; Hematocrit 46 % (35-47); Hemoglobin 15.7 g/dL (12.0-16.0); Lymphocyte % 29.3 %; Mean Corpuscular HGB Conc 35 g/dL (31-36); Mean Corpuscular Hemoglobin 31 pg (27-31); Mean Corpuscular Volume 89 fL (80-97); Mean Platelet Volume 8.2 fL (7.4-10.4); Platelet Count 202 10^3/uL (150-450); Red Blood Count 5.15 10^6 /uL (3.70-4.87); Red Cell Distribution Width 15 % (10-15); White Blood Count 5.4 10^3/uL (3.5-10.8)
[2020-03-27 00:45] LABS: Anion Gap 6 mmol/L (2-11); BUN/Creatinine Ratio 20.2 (8-20); Blood Urea Nitrogen 17 mg/dL (6-24); C Reactive Protein < 1.00 mg/L (<8.01); CO2 Carbon Dioxide 24 mmol/L (22-32); Calcium 9.4 mg/dL (8.6-10.3); Chloride 107 mmol/L (101-111); EGFR African American 87.9 (>60); EGFR Non-African American 72.7 (>60); Glucose 92 mg/dL (70-100); Potassium 3.7 mmol/L (3.5-5.0); Sodium 137 mmol/L (135-145)
[2020-03-27] MEDS ORDERED: NS 0.9% 1000 ml BAG 1,000 ML IV SCH (01:15)
[2020-03-27] MEDS: Morphine 2 MG/ML SYRINGE IV PRN ×3 (03:53→11:24)
[2020-03-27] MEDS ORDERED: CMCS:Meloxicam 7.5 mg TAB (NF) PO PRN (08:07)
[2020-03-27] MEDS ORDERED: Cholecalciferol (VIT D3) 1,000 unit TAB PO SCH (09:00)
[2020-03-27] MEDS: CMCS:Pravastatin 20 mg TAB (NF) PO SCH (11:29)
[2020-03-27] MEDS: Mometasone/Formoter 100/5 MDI INH SCH ×2 (11:30→20:34)
[2020-03-27] MEDS ORDERED: Morphine 2 MG/ML SYRINGE IV ONE (12:10)
[2020-03-27 14:09] LABS: Vitamin D Total 25(OH) 18.9 ng/mL (20-50)
[2020-03-27] MEDS ORDERED: Lorazepam PYXIS KEY PRN (14:17)
[2020-03-27] MEDS ORDERED: LORazepam 2 mg VIAL 1 ml IV PUSH ONE (14:17)
[2020-03-27] MEDS: Nicotine PATCH 14 MG/24 HR PATCH TRANSDERM SCH (17:39)
[2020-03-27] MEDS ORDERED: DOLUTEGRAVIR SODIUM PO SCH (18:00)
[2020-03-27] MEDS ORDERED: LAMIVUDINE PO SCH (18:00)
[2020-03-27] MEDS ORDERED: Enoxaparin 40 MG/0.4 ML SYR SUBCUT SCH (21:00)
[2020-03-27] MEDS ORDERED: Lidocaine Patch REMOVE PATCH PATCH OFF SCH (21:00)
[2020-03-28 03:03] VITALS: BP 118/76
[2020-03-28] MEDS: Mometasone/Formoter 100/5 MDI INH SCH (07:32)
[2020-03-28] MEDS ORDERED: Cholecalciferol (VIT D3) 1,000 unit TAB PO SCH ×2 (09:00→10:00)
[2020-03-28] MEDS: Nicotine PATCH 14 MG/24 HR PATCH TRANSDERM SCH (09:15)
[2020-03-28] MEDS: CMCS:Pravastatin 20 mg TAB (NF) PO SCH (09:16)
[2020-03-30] MEDS ORDERED: Cholecalciferol (VIT D3) 1,000 unit TAB PO SCH (09:00)
== END 2020-03-28 12:30 | disposition home or self-care (01) ==
LOC: ED 21:25 → SSU 21:25
PROVIDERS: ADMIT Student in an Organized Health Care Education/Training Program; ATTEND Internal Medicine